=== PATIENT | female | born 1945 | race Caucasian/White ===

== ENCOUNTER 2020-02-28 09:38 | Outpatient (REF) | payer MEDICARE, SELFPAY ==
[2020-02-28 12:22] LABS: Erythrocyte Sedimentation Rate 7 MM/HR (0-20)
[2020-02-28 12:23] LABS: C Reactive Protein 0.31 mg/dL (< or = 0.50)
[2020-02-28 12:39] LABS: HBS Num1 1.88 mIU/mL (0-7.99); HBc Num1 0.07 S/CO (0.00-0.79); HBsAGNum1 0.16 S/CO (0.00-0.99); Hepatitis B Core Antibody Nonreactive (Nonreactive); Hepatitis B Surface Antigen Negative (Negative); ~HepC Num1 0.09 S/CO (0.00-0.79); ~Hepatitis B Surface Antibody NONREACTIVE (Nonreactive); ~Hepatitis C Antibody Nonreactive (Nonreactive)
[2020-02-28 12:50] LABS: Vitamin D 25-OH Total 29.2 ng/mL (>30)
[2020-02-29 10:14] LABS: Alanine Aminotransferase 16 U/L (0-31); Albumin Level 4.2 g/dL (3.5-5.0); Alkaline Phosphatase 47 U/L (39-117); Anion Gap 15 (12-20); Aspartate Amino Transferase 17 U/L (5-31); Bilirubin Total 0.4 mg/dL (0.0-1.0); Blood Urea Nitrogen 12 mg/dL (9-16); Carbon Dioxide 26 mmol/L (22-29); Chloride 103 mmol/L (96-108); Estimated Glomerular Filt Rate > 60; Glucose Random 100 mg/dL (60-115); Potassium 3.9 mmol/l (3.3-5.1); Sodium 140 mmol/L (135-145); Total Protein 6.7 g/dL (6.5-8.0)
[2020-02-29 13:06] LABS: Basophils Absolute Auto 0.1 X10*3/uL (0.0-0.2); Basophils Percent Auto 0.5 % (0-2); Eosinophils Absolute Auto 0.2 X10*3/uL (0.0-0.4); Hematocrit 46.9 % (37-47); Hemoglobin 15.1 g/dl (12.0-16.0); Imm Gran Abs Auto 0.08 X10*3/uL (0.00-0.03); Imm Gran Pct Auto 0.5 % (0.0-0.4); Lymphocytes Percent Auto 70.2 % (20-40); MANUAL DIFF FLAG SCAN; Mean Corpuscular HGB Conc 32.2 g/dl (31.0-35.0); Mean Corpuscular Hemoglobin 29.8 pg (27.0-33.0); Mean Corpuscular Volume 92.5 fL (80-98); Mean Platelet Volume 10.3 fL (9.4-12.3); Monocytes Absolute Auto 0.9 X10*3/uL (0.1-1.2); Monocytes Percent Auto 5.2 % (2-11); Neutrophils Absolute Auto 3.8 X10*3/uL (2.0-8.3); Neutrophils Percent Auto 22.6 % (45-73); Platelet Count 178 X10*3/uL (160-400); Red Blood Count 5.07 X10*6/uL (4.20-5.50); Red Cell Distribution Width 15.2 % (11.0-16.0); SCAN SMEAR FLAG 1; White Blood Count 16.7 X10*3/uL (4.8-10.8)
[2020-02-29 13:17] LABS: Lymphocytes Absolute Auto 11.7 X10*3/uL (1.2-4.9)
[2020-02-29 14:20] LABS: SLIDE REVIEW VERIFIED
[2020-03-01 08:14] LABS: Hepatitis A Antibody IgM 0.15 Index (0-0.79); ~Hepatitis A Antibody IgM Nonreactive (Nonreactive)
[2020-03-01 20:56] LABS: TS Negative Control Passed; TS Panel A 0; TS Panel B 1; TS Positive Control Passed; TSpotTB Negative (SeeBelow)
== END 2020-02-28 09:39 | disposition home or self-care (01) ==
LOC: HO.HMGCLDS 09:38
PROVIDERS: PCP Internal Medicine; Visit Provider Student in an Organized Health Care Education/Training Program
DX: C91.90 Lymphoid leukemia, unspecified not having achieved remission (principal); D69.6 Thrombocytopenia, unspecified; M81.0 Age-related osteoporosis without current pathological fracture; Z79.52 Long term (current) use of systemic steroids; M25.50 Pain in unspecified joint; M35.3 Polymyalgia rheumatica; R79.89 Other specified abnormal findings of blood chemistry
CPT/HCPCS: 36415; 80053; 82306; 85025; 85652; 86140; 86481; 86704; 86706; 86709; 86803; 87340

== ENCOUNTER → 2020-03-08 09:46 | Outpatient (BNVA) | payer MEDICARE, SELFPAY | PROVIDERS: PCP Internal Medicine; Referring Provider Internal Medicine; Visit Provider Student in an Organized Health Care Education/Training Program | DX: M35.3 Polymyalgia rheumatica (principal); R79.89 Other specified abnormal findings of blood chemistry; M81.0 Age-related osteoporosis without current pathological fracture; Z79.52 Long term (current) use of systemic steroids | CPT/HCPCS: 99212 ==

== ENCOUNTER 2020-05-08 10:24 | Outpatient (REF) | payer MEDICARE, SELFPAY ==
[2020-05-08 15:05] LABS: Erythrocyte Sedimentation Rate 26 MM/HR (0-20)
== END 2020-05-08 10:25 | disposition home or self-care (01) ==
LOC: HO.HMGCLDS 10:24
PROVIDERS: PCP Internal Medicine; Visit Provider Student in an Organized Health Care Education/Training Program
DX: M35.3 Polymyalgia rheumatica (principal)
CPT/HCPCS: 36415; 85652; 86140

== ENCOUNTER → 2020-05-16 11:17 | Outpatient (BNVA) | payer MEDICARE, SELFPAY | PROVIDERS: PCP Internal Medicine; Visit Provider Student in an Organized Health Care Education/Training Program | DX: M35.3 Polymyalgia rheumatica (principal); M81.0 Age-related osteoporosis without current pathological fracture; R79.89 Other specified abnormal findings of blood chemistry; Z79.52 Long term (current) use of systemic steroids | CPT/HCPCS: 99212 ==

== ENCOUNTER 2020-07-03 11:04 | Outpatient (REF) | payer MEDICARE, SELFPAY ==
[2020-07-03 14:48] LABS: Basophils Absolute Auto 0.1 X10*3/uL (0.0-0.2); Basophils Percent Auto 0.4 % (0-2); Eosinophils Absolute Auto 0.1 X10*3/uL (0.0-0.4); Eosinophils Percent Auto 0.4 % (0-4); Hematocrit 43.3 % (37-47); Hemoglobin 13.9 g/dl (12.0-16.0); Imm Gran Abs Auto 0.06 X10*3/uL (0.00-0.03); Imm Gran Pct Auto 0.4 % (0.0-0.4); Lymphocytes Percent Auto 54.3 % (20-40); MANUAL DIFF FLAG SCAN; Mean Corpuscular HGB Conc 32.1 g/dl (31.0-35.0); Mean Corpuscular Hemoglobin 30.2 pg (27.0-33.0); Mean Corpuscular Volume 94.1 fL (80-98); Mean Platelet Volume 9.8 fL (9.4-12.3); Monocytes Absolute Auto 0.9 X10*3/uL (0.1-1.2); Monocytes Percent Auto 5.5 % (2-11); Neutrophils Absolute Auto 6.3 X10*3/uL (2.0-8.3); Platelet Count 193 X10*3/uL (160-400); Red Cell Distribution Width 13.5 % (11.0-16.0); SCAN SMEAR FLAG 1; White Blood Count 16.2 X10*3/uL (4.8-10.8)
[2020-07-03 14:59] LABS: Lymphocytes Absolute Auto 8.8 X10*3/uL (1.2-4.9)
[2020-07-03 15:18] LABS: Alanine Aminotransferase 12 U/L (0-31); Albumin Level 4.2 g/dL (3.5-5.0); Alkaline Phosphatase 57 U/L (39-117); Anion Gap 15 (12-20); Aspartate Amino Transferase 18 U/L (5-31); Bilirubin Total 0.5 mg/dL (0.0-1.0); Blood Urea Nitrogen 12 mg/dL (9-16); Calcium 9.2 mg/dL (8.4-10.2); Carbon Dioxide 28 mmol/L (22-29); Chloride 103 mmol/L (96-108); Estimated Glomerular Filt Rate > 60; Glucose Random 87 mg/dL (60-115); Potassium 4.4 mmol/L (3.3-5.1); Sodium 142 mmol/L (135-145)
[2020-07-03 15:24] LABS: C Reactive Protein 1.75 mg/dL (< or = 0.50)
[2020-07-03 15:43] LABS: Erythrocyte Sedimentation Rate 33 MM/HR (0-20)
[2020-07-03 16:07] LABS: SLIDE REVIEW VERIFIED
== END 2020-07-03 11:05 | disposition home or self-care (01) ==
LOC: HO.HMGCLDS 11:04
PROVIDERS: PCP Internal Medicine; Referring Provider Internal Medicine Medical Oncology; Visit Provider Student in an Organized Health Care Education/Training Program
DX: M35.3 Polymyalgia rheumatica (principal); C91.90 Lymphoid leukemia, unspecified not having achieved remission
CPT/HCPCS: 36415; 80053; 85025; 85652; 86140

== ENCOUNTER → 2020-07-20 10:17 | Outpatient (BNVA) | payer MEDICARE, SELFPAY | PROVIDERS: Visit Provider Student in an Organized Health Care Education/Training Program | DX: M35.3 Polymyalgia rheumatica (principal); M81.0 Age-related osteoporosis without current pathological fracture; R79.89 Other specified abnormal findings of blood chemistry; Z79.52 Long term (current) use of systemic steroids | CPT/HCPCS: 99212 ==

== ENCOUNTER 2020-08-21 11:25 | Outpatient (REF) | payer MEDICARE, SELFPAY ==
[2020-08-21 14:38] LABS: C Reactive Protein 0.46 mg/dL (< or = 0.50)
[2020-08-21 15:14] LABS: Erythrocyte Sedimentation Rate 13 MM/HR (0-20)
[2020-08-22 15:56] LABS: IgA 175 mg/dL (70-320); IgG 959 mg/dL (600-1540); IgM 46 mg/dL (50-300)
[2020-08-22 22:47] LABS: Prot Elec - Albumin 4.2 g/dL (3.8-4.8); Prot Elec - Alpha1 0.4 g/dL (0.2-0.3); Prot Elec - Alpha2 0.8 g/dL (0.5-0.9); Prot Elec - Beta 1 0.5 g/dL (0.4-0.6); Prot Elec - Beta 2 0.4 g/dL (0.2-0.5); Prot Elec - Gamma 0.9 g/dL (0.8-1.7); Prot Elec - Total Protein 7.2 g/dL (6.1-8.1)
== END 2020-08-21 11:26 | disposition home or self-care (01) ==
LOC: HO.HMGCLDS 11:25
PROVIDERS: PCP Internal Medicine; Visit Provider Student in an Organized Health Care Education/Training Program
DX: M35.3 Polymyalgia rheumatica (principal)
CPT/HCPCS: 36415; 82784; 84155; 84165; 85652; 86140; 86334

== ENCOUNTER → 2020-08-28 12:45 | Outpatient (BNVA) | payer MEDICARE, SELFPAY | PROVIDERS: Visit Provider Student in an Organized Health Care Education/Training Program | DX: M35.3 Polymyalgia rheumatica (principal); R79.89 Other specified abnormal findings of blood chemistry; M81.0 Age-related osteoporosis without current pathological fracture; Z79.52 Long term (current) use of systemic steroids | CPT/HCPCS: 99212 ==

== ENCOUNTER 2020-09-21 10:15 | Outpatient (REF) | payer MEDICARE, SELFPAY ==
[2020-09-21 12:26] LABS: C Reactive Protein 0.41 mg/dL (< or = 0.50)
[2020-09-21 13:17] LABS: Erythrocyte Sedimentation Rate 12 MM/HR (0-20)
== END 2020-09-21 10:16 | disposition home or self-care (01) ==
LOC: HO.HMGCLDS 10:15
PROVIDERS: PCP Internal Medicine; Visit Provider Student in an Organized Health Care Education/Training Program
DX: M35.3 Polymyalgia rheumatica (principal)
CPT/HCPCS: 36415; 85652; 86140

== ENCOUNTER → 2020-09-28 12:14 | Outpatient (BNVA) | payer MEDICARE, SELFPAY | PROVIDERS: Visit Provider Student in an Organized Health Care Education/Training Program | DX: M35.3 Polymyalgia rheumatica (principal); M81.0 Age-related osteoporosis without current pathological fracture; R79.89 Other specified abnormal findings of blood chemistry; Z79.52 Long term (current) use of systemic steroids | CPT/HCPCS: 99212 ==

== ENCOUNTER 2020-11-02 10:25 | Outpatient (REF) | payer MEDICARE, SELFPAY ==
[2020-11-02 11:24] LABS: Basophils Absolute Auto 0.1 X10*3/uL (0.0-0.2); Basophils Percent Auto 0.5 % (0-2); Eosinophils Absolute Auto 0.1 X10*3/uL (0.0-0.4); Eosinophils Percent Auto 0.7 % (0-4); Hematocrit 44.5 % (37-47); Hemoglobin 14.6 g/dl (12.0-16.0); Imm Gran Abs Auto 0.05 X10*3/uL (0.00-0.03); Imm Gran Pct Auto 0.3 % (0.0-0.4); Lymphocytes Percent Auto 59.8 % (20-40); MANUAL DIFF FLAG SCAN; Mean Corpuscular HGB Conc 32.8 g/dl (31.0-35.0); Mean Corpuscular Hemoglobin 30.3 pg (27.0-33.0); Mean Corpuscular Volume 92.3 fL (80-98); Mean Platelet Volume 9.3 fL (9.4-12.3); Monocytes Absolute Auto 1.1 X10*3/uL (0.1-1.2); Monocytes Percent Auto 6.4 % (2-11); Neutrophils Absolute Auto 5.5 X10*3/uL (2.0-8.3); Neutrophils Percent Auto 32.3 % (45-73); Platelet Count 173 X10*3/uL (160-400); Red Blood Count 4.82 X10*6/uL (4.20-5.50); Red Cell Distribution Width 14.3 % (11.0-16.0); SCAN SMEAR FLAG 1
[2020-11-02 11:25] LABS: Lymphocytes Absolute Auto 10.2 X10*3/uL (1.2-4.9)
[2020-11-02 11:56] LABS: Alanine Aminotransferase 14 U/L (0-31); Albumin Level 4.1 g/dL (3.5-5.0); Alkaline Phosphatase 48 U/L (39-117); Anion Gap 12 (12-20); Aspartate Amino Transferase 27 U/L (5-31); Bilirubin Total 0.4 mg/dL (0.0-1.0); Blood Urea Nitrogen 12 mg/dL (9-16); C Reactive Protein 0.46 mg/dL (< or = 0.50); Calcium 9.4 mg/dL (8.4-10.2); Carbon Dioxide 27 mmol/L (22-29); Chloride 106 mmol/L (96-108); Estimated Glomerular Filt Rate > 60; Glucose Random 84 mg/dL (60-115); Lactate Dehydrogenase 180 U/L (122-220); Potassium 4.2 mmol/L (3.3-5.1); Sodium 141 mmol/L (135-145); Total Protein 6.7 g/dL (6.5-8.0)
[2020-11-02 12:08] LABS: SLIDE REVIEW VERIFIED
[2020-11-02 12:31] LABS: Erythrocyte Sedimentation Rate 12 MM/HR (0-20)
== END 2020-11-02 10:26 | disposition home or self-care (01) ==
LOC: HO.HMGCLDS 10:25
PROVIDERS: Student in an Organized Health Care Education/Training Program; PCP Internal Medicine; Visit Provider Internal Medicine Medical Oncology
DX: C91.90 Lymphoid leukemia, unspecified not having achieved remission (principal); D69.6 Thrombocytopenia, unspecified; M35.3 Polymyalgia rheumatica
CPT/HCPCS: 36415; 80053; 83615; 85025; 85652; 86140

== ENCOUNTER 2020-11-08 15:51 | Outpatient (REF) | payer MEDICARE, SELFPAY ==
--- NOTE | ~2020-11-08 | MM_ITS ---
EXAMINATION: MM SCREENING DIGITAL BREAST TOMOSYNTHESIS, BILATERAL CLINICAL INFORMATION: Screening. Asymptomatic. Prior mammography from [place] currently unavailable. No known family history breast cancer. The lifetime risk of breast cancer based on the Tyrer-Cuzick Model is 2%. COMPARISON: None. TECHNIQUE: Digital breast tomosynthesis is performed in both the craniocaudal and mediolateral oblique views along with computer-aided detection (CAD). Synthesized 2D images are generated from the tomosynthesis. FINDINGS: There are scattered areas of fibroglandular density (ACR BI-RADS breast composition Category b). There are no significant masses, abnormal calcifications, or other abnormalities. The axilla and skin contours. Radiology department staff will attempt to retrieve prior [id number] mammography to allow for comparison in an addendum report. MM/MM tomosynthesis screening BI IMPRESSION: No mammographic evidence of malignancy. ASSESSMENT: BI-RADS 1: Negative RECOMMENDATION: Routine annual mammography screening. This patient's information was entered into a reminder system with a target due date for their next mammogram.
== END 2020-11-08 15:52 | disposition home or self-care (01) ==
LOC: HO.MAMMO 15:51
PROVIDERS: Visit Provider Internal Medicine
DX: Z12.31 Encounter for screening mammogram for malignant neoplasm of breast (principal)
CPT/HCPCS: 77063; 77067

== ENCOUNTER → 2020-11-14 11:15 | Outpatient (BNVA) | payer MEDICARE, SELFPAY | PROVIDERS: PCP Internal Medicine; Visit Provider Student in an Organized Health Care Education/Training Program | DX: M35.3 Polymyalgia rheumatica (principal); M81.0 Age-related osteoporosis without current pathological fracture; R79.89 Other specified abnormal findings of blood chemistry; Z79.52 Long term (current) use of systemic steroids | CPT/HCPCS: 99212 ==

== ENCOUNTER 2020-12-18 10:12 | Outpatient (REF) | payer MEDICARE, SELFPAY ==
[2020-12-18 12:32] LABS: Erythrocyte Sedimentation Rate 18 MM/HR (0-20)
== END 2020-12-18 10:13 | disposition home or self-care (01) ==
LOC: HO.HMGCLDS 10:12
PROVIDERS: PCP Internal Medicine; Visit Provider Student in an Organized Health Care Education/Training Program
DX: M35.3 Polymyalgia rheumatica (principal)
CPT/HCPCS: 36415; 85652; 86140

== ENCOUNTER → 2020-12-26 08:37 | Outpatient (BNVA) | payer MEDICARE, SELFPAY | PROVIDERS: PCP Internal Medicine; Visit Provider Student in an Organized Health Care Education/Training Program | CPT/HCPCS: Q3014 ==

== ENCOUNTER 2021-02-12 10:25 | Outpatient (REF) | payer MEDICARE, SELFPAY ==
[2021-02-12 11:56] LABS: C Reactive Protein 1.17 mg/dL (< or = 0.50)
[2021-02-12 12:38] LABS: Erythrocyte Sedimentation Rate 25 MM/HR (0-20)
== END 2021-02-12 10:26 | disposition home or self-care (01) ==
LOC: HO.HMGCLDS 10:25
PROVIDERS: PCP Internal Medicine; Visit Provider Student in an Organized Health Care Education/Training Program
DX: M35.3 Polymyalgia rheumatica (principal)
CPT/HCPCS: 36415; 85652; 86140

== ENCOUNTER → 2021-02-21 10:38 | Outpatient (BNVA) | payer MEDICARE, SELFPAY | PROVIDERS: PCP Internal Medicine; Visit Provider Nurse Practitioner Family | DX: M35.3 Polymyalgia rheumatica (principal); M81.0 Age-related osteoporosis without current pathological fracture; R79.89 Other specified abnormal findings of blood chemistry; Z79.52 Long term (current) use of systemic steroids | CPT/HCPCS: 99212 ==

== ENCOUNTER 2021-03-18 10:46 | Outpatient (REF) | payer MEDICARE, SELFPAY ==
[2021-03-18 14:20] LABS: C Reactive Protein 0.18 mg/dL (< or = 0.50)
[2021-03-18 14:44] LABS: Erythrocyte Sedimentation Rate 7 MM/HR (0-20)
== END 2021-03-18 10:47 | disposition home or self-care (01) ==
LOC: HO.HMGCLDS 10:46
PROVIDERS: Absent Provider Student in an Organized Health Care Education/Training Program; PCP Internal Medicine; Visit Provider Nurse Practitioner Family
DX: M35.3 Polymyalgia rheumatica (principal)
CPT/HCPCS: 36415; 85652; 86140

== ENCOUNTER 2021-04-16 10:27 | Outpatient (REF) | payer MEDICARE, SELFPAY ==
[2021-04-16 11:46] LABS: C Reactive Protein 0.27 mg/dL (< or = 0.50)
[2021-04-16 12:12] LABS: Erythrocyte Sedimentation Rate 9 MM/HR (0-20)
== END 2021-04-16 10:28 | disposition home or self-care (01) ==
LOC: HO.HMGCLDS 10:27
PROVIDERS: Student in an Organized Health Care Education/Training Program; PCP Internal Medicine; Visit Provider Nurse Practitioner Family
DX: M35.3 Polymyalgia rheumatica (principal)
CPT/HCPCS: 36415; 85652; 86140

== ENCOUNTER 2021-04-29 10:26 | Outpatient (REF) | payer MEDICARE, SELFPAY ==
[2021-04-29 12:07] LABS: Basophils Absolute Auto 0.1 X10*3/uL (0.0-0.2); Basophils Percent Auto 0.5 % (0-2); Eosinophils Absolute Auto 0.2 X10*3/uL (0.0-0.4); Hematocrit 45.2 % (37.0-47.0); Hemoglobin 14.3 g/dl (12.0-16.0); Imm Gran Abs Auto 0.04 X10*3/uL (0.00-0.03); Imm Gran Pct Auto 0.3 % (0.0-0.4); MANUAL DIFF FLAG SCAN; Mean Corpuscular HGB Conc 31.6 g/dl (31.0-35.0); Mean Corpuscular Hemoglobin 29.4 pg (27.0-33.0); Mean Platelet Volume 10.1 fL (9.4-12.3); Monocytes Percent Auto 6.3 % (2-11); Neutrophils Absolute Auto 4.8 x10*3/uL (2.0-8.3); Neutrophils Percent Auto 30.9 % (45-73); Platelet Count 172 X10*3/uL (160-400); Red Blood Count 4.86 X10*6/uL (4.20-5.50); SCAN SMEAR FLAG 1; White Blood Count 15.6 X10*3/uL (4.8-10.8)
[2021-04-29 12:10] LABS: Lymphocytes Absolute Auto 9.5 X10*3/uL (1.2-4.9)
[2021-04-29 12:26] LABS: Alanine Aminotransferase 15 U/L (0-31); Albumin Level 4.2 g/dL (3.5-5.0); Alkaline Phosphatase 53 U/L (39-117); Anion Gap 13 (12-20); Aspartate Amino Transferase 19 U/L (5-31); Bilirubin Total 0.2 mg/dL (0.0-1.0); Blood Urea Nitrogen 12 mg/dL (9-16); Calcium 9.8 mg/dL (8.4-10.2); Carbon Dioxide 28 mmol/L (22-29); Chloride 105 mmol/L (96-108); Estimated Glomerular Filt Rate > 60; Glucose Random 80 mg/dL (60-115); Potassium 4.9 mmol/L (3.3-5.1); Sodium 141 mmol/L (135-145); Total Protein 7.2 g/dL (6.5-8.0)
[2021-04-29 12:39] LABS: SLIDE REVIEW VERIFIED
== END 2021-04-29 10:27 | disposition home or self-care (01) ==
LOC: HO.HMGCLDS 10:26
PROVIDERS: PCP Internal Medicine; Visit Provider Internal Medicine Medical Oncology
DX: C91.90 Lymphoid leukemia, unspecified not having achieved remission (principal); D69.6 Thrombocytopenia, unspecified
CPT/HCPCS: 36415; 80053; 85025

== ENCOUNTER → 2021-05-07 10:35 | Outpatient (BNVA) | payer MEDICARE, SELFPAY | PROVIDERS: PCP Internal Medicine; Visit Provider Nurse Practitioner Family | DX: M35.3 Polymyalgia rheumatica (principal); R79.89 Other specified abnormal findings of blood chemistry; M81.0 Age-related osteoporosis without current pathological fracture; Z79.52 Long term (current) use of systemic steroids | CPT/HCPCS: 99212 ==

== ENCOUNTER 2021-06-25 10:27 | Outpatient (REF) | payer MEDICARE, SELFPAY ==
[2021-06-25 12:23] LABS: C Reactive Protein 0.45 mg/dL (< or = 0.50)
[2021-06-25 12:35] LABS: Erythrocyte Sedimentation Rate 17 MM/HR (0-20)
== END 2021-06-25 10:28 | disposition home or self-care (01) ==
LOC: HO.HMGCLDS 10:27
PROVIDERS: Absent Provider Nurse Practitioner Family; PCP Internal Medicine; Visit Provider Student in an Organized Health Care Education/Training Program
DX: M35.3 Polymyalgia rheumatica (principal)
CPT/HCPCS: 36415; 85652; 86140

== ENCOUNTER → 2021-07-09 10:53 | Outpatient (BNVA) | payer MEDICARE, SELFPAY | PROVIDERS: PCP Internal Medicine; Visit Provider Nurse Practitioner Family | DX: M35.3 Polymyalgia rheumatica (principal); M81.0 Age-related osteoporosis without current pathological fracture; R79.89 Other specified abnormal findings of blood chemistry; Z79.52 Long term (current) use of systemic steroids | CPT/HCPCS: 99212 ==

== ENCOUNTER 2021-08-07 10:25 | Outpatient (REF) | payer MEDICARE, SELFPAY ==
[2021-08-07 11:44] LABS: C Reactive Protein 0.49 mg/dL (< or = 0.50)
[2021-08-07 12:30] LABS: Erythrocyte Sedimentation Rate 18 MM/HR (0-20)
== END 2021-08-07 10:26 | disposition home or self-care (01) ==
LOC: HO.HMGCLDS 10:25
PROVIDERS: PCP Internal Medicine; Visit Provider Nurse Practitioner Family
DX: M35.3 Polymyalgia rheumatica (principal)
CPT/HCPCS: 36415; 85652; 86140

== ENCOUNTER → 2021-08-22 10:23 | Outpatient (BNVA) | payer MEDICARE, SELFPAY | PROVIDERS: PCP Internal Medicine; Visit Provider Nurse Practitioner Family | DX: M35.3 Polymyalgia rheumatica (principal); M81.0 Age-related osteoporosis without current pathological fracture; R79.89 Other specified abnormal findings of blood chemistry; Z79.52 Long term (current) use of systemic steroids | CPT/HCPCS: 99212 ==

== ENCOUNTER 2021-10-22 10:51 | Outpatient (REF) | payer MEDICARE, SELFPAY ==
[2021-10-22 14:21] LABS: Basophils Absolute Auto 0.1 X10*3/uL (0.0-0.2); Basophils Percent Auto 0.5 % (0-2); Eosinophils Absolute Auto 0.1 X10*3/uL (0.0-0.4); Eosinophils Percent Auto 0.7 % (0-4); Hematocrit 41.5 % (37.0-47.0); Hemoglobin 13.3 g/dl (12.0-16.0); Imm Gran Abs Auto 0.05 X10*3/uL (0.00-0.03); Imm Gran Pct Auto 0.3 % (0.0-0.4); Lymphocytes Percent Auto 57.2 % (20-40); Mean Corpuscular Hemoglobin 29.4 pg (27.0-33.0); Mean Corpuscular Volume 91.6 fL (80.0-98.0); Mean Platelet Volume 9.9 fL (9.4-12.3); Monocytes Absolute Auto 1.1 X10*3/uL (0.1-1.2); Monocytes Percent Auto 7.7 % (2-11); Neutrophils Absolute Auto 4.8 x10*3/uL (2.0-8.3); Neutrophils Percent Auto 33.6 % (45-73); Platelet Count 180 X10*3/uL (160-400); Red Blood Count 4.53 X10*6/uL (4.20-5.50); Red Cell Distribution Width 13.7 % (11.0-16.0); SCAN SMEAR FLAG 1; White Blood Count 14.3 X10*3/uL (4.8-10.8)
[2021-10-22 14:28] LABS: Lymphocytes Absolute Auto 8.2 X10*3/uL (1.2-4.9)
[2021-10-22 14:30] LABS: MANUAL DIFF FLAG SCAN
[2021-10-22 14:45] LABS: Alanine Aminotransferase 12 U/L (0-31); Albumin Level 4.3 g/dL (3.5-5.0); Alkaline Phosphatase 56 U/L (39-117); Anion Gap 13 (12-20); Aspartate Amino Transferase 20 U/L (5-31); Bilirubin Total 0.3 mg/dL (0.0-1.0); Blood Urea Nitrogen 10 mg/dL (9-16); Calcium 9.3 mg/dL (8.4-10.2); Carbon Dioxide 27 mmol/L (22-29); Chloride 102 mmol/L (96-108); Estimated Glomerular Filt Rate > 60; Glucose Random 85 mg/dL (60-115); Sodium 137 mmol/L (135-145)
[2021-10-22 14:53] LABS: SLIDE REVIEW VERIFIED
[2021-10-22 14:54] LABS: C Reactive Protein 0.33 mg/dL (< or = 0.50)
[2021-10-22 15:13] LABS: Vitamin D 25-OH Total 45.7 ng/mL (>30)
[2021-10-22 15:14] LABS: Erythrocyte Sedimentation Rate 17 MM/HR (0-20)
== END 2021-10-22 10:52 | disposition home or self-care (01) ==
LOC: HO.HMGCLDS 10:51
PROVIDERS: Absent Provider Nurse Practitioner Family; PCP Internal Medicine; Visit Provider Internal Medicine Medical Oncology
DX: M35.3 Polymyalgia rheumatica (principal); M81.0 Age-related osteoporosis without current pathological fracture; C91.90 Lymphoid leukemia, unspecified not having achieved remission
CPT/HCPCS: 36415; 80053; 82306; 85025; 85652; 86140

== ENCOUNTER → 2021-10-30 09:56 | Outpatient (BNVA) | payer MEDICARE, SELFPAY | PROVIDERS: PCP Internal Medicine Rheumatology; Visit Provider Nurse Practitioner Family | DX: M35.3 Polymyalgia rheumatica (principal); M81.0 Age-related osteoporosis without current pathological fracture; R79.89 Other specified abnormal findings of blood chemistry; Z79.52 Long term (current) use of systemic steroids | CPT/HCPCS: 99212 ==

== ENCOUNTER 2021-11-08 09:26 | Outpatient (REF) | payer MEDICARE, SELFPAY ==
[2021-11-08 12:17] LABS: Cholesterol 205 mg/dL; HDL Cholesterol 70 mg/dL; LDL Cholesterol Calculated 118 mg/dl; Triglycerides 88 mg/dL
== END 2021-11-08 09:27 | disposition home or self-care (01) ==
LOC: HO.HMGCLDS 09:26
PROVIDERS: PCP Internal Medicine; Visit Provider Internal Medicine
DX: E78.5 Hyperlipidemia, unspecified (principal)
CPT/HCPCS: 36415; 80061

== ENCOUNTER 2021-11-11 10:24 | Outpatient (REF) | payer MEDICARE, SELFPAY ==
--- NOTE | ~2021-11-11 | MM_ITS ---
EXAMINATION: MM SCREENING DIGITAL BREAST TOMOSYNTHESIS, BILATERAL CLINICAL INFORMATION: Screening. Asymptomatic. The lifetime risk of breast cancer based on the Tyrer-Cuzick Model is 3%. COMPARISON: Mammography: 11/08/2020; outside mammography 05/27/2019, 05/19/2018 ([place], [place]). TECHNIQUE: Digital breast tomosynthesis is performed in both the craniocaudal and mediolateral oblique views along with computer-aided detection (CAD). Synthesized 2D images are generated from the tomosynthesis. FINDINGS: There are scattered areas of fibroglandular density (ACR BI-RADS breast composition Category b). There are no significant masses, abnormal calcifications, or other abnormalities. Breast tissue composition borders on predominantly fatty. Background stromal markings are stable. No significant changes. MM/MM tomosynthesis screening BI IMPRESSION: No mammographic evidence of malignancy. ASSESSMENT: BI-RADS 1: Negative RECOMMENDATION: Routine annual mammography screening. This patient's information was entered into a reminder system with a target due date for their next mammogram.
== END 2021-11-11 10:25 | disposition home or self-care (01) ==
LOC: HO.MAMMO 10:24
PROVIDERS: PCP Internal Medicine; Visit Provider Internal Medicine
DX: Z12.31 Encounter for screening mammogram for malignant neoplasm of breast (principal)
CPT/HCPCS: 77063; 77067

== ENCOUNTER 2021-11-12 09:17 | Outpatient (REF) | payer MEDICARE, SELFPAY ==
--- NOTE | ~2021-11-12 | MM_ITS ---
EXAMINATION: BONE DENSITOMETRY CLINICAL INDICATION: Age-related osteoporosis without current pathological fracture. COMPARISON: Baseline BD dated 11/09/2019. TECHNIQUE: Using a [employer] DXA System (software version: 13.1) manufactured by [employer], dual-energy x-ray absorptiometry was performed of the lumbar spine and left hip. The images are of good technical quality. Summary results are attached. FINDINGS: AP SPINE L1-L4: Current: BMD 0.962 g/cm2, Z-score 0.2, T-score -1.8, osteopenia, 3.2% increase from baseline (<5% change is not significant). Baseline: BMD 0.932 g/cm2. LEFT FEMUR, NECK: Current: BMD 0.731 g/cm2, Z-score 0.0, T-score -2.2, osteopenia. Baseline: BMD 0.757 g/cm2. LEFT FEMUR, TOTAL: Current: BMD 0.833 g/cm2, Z-score 0.7, T-score -1.4, osteopenia, 1.7% increase from baseline (<5% change is not significant). Baseline: BMD 0.819 g/cm2. IDENTIFIED RISK FACTORS: Menopause, history of fracture (adult), osteoporosis, rheumatoid arthritis, glucocorticoids (chronic). HISTORY OF FRACTURE: Wrist. MEDICATIONS: Calcium supplements or multivitamin, vitamin D, bisphosphonate. MM/XR DEXA axial skeleton IMPRESSION: 1. DIAGNOSIS: Osteopenia based on the lowest T-score value of -2.2 in the femoral neck applying World Health Organization criteria. 2. 10-YEAR FRACTURE RISK PREDICTION, FRAX: Major osteoporotic fracture (clinical spine, forearm, hip or shoulder) 40.3%. Hip fracture 15.6%. 3. Treatment Recommendations: NOF guidelines recommend consideration for treatment in postmenopausal women and men age 50 and older presenting with the following: -A hip or vertebral (clinical or morphometric) fracture. -T-score less than or equal to -2.5 at the femoral neck or spine after appropriate evaluation to exclude secondary causes. -Low bone mass at the hip or spine and a 10-year fracture probability by FRAX of greater than or equal to 3% for hip fracture or greater than or equal to 20% for major osteoporotic fracture based on the [place] adapted WHO algorithm. 4. Other Recommendations: All treatment decisions require clinical judgment and consideration of individual patient factors, including patient preferences, comorbidities, previous drug use, risk factors not captured in the FRAX model (e.g. frailty, falls, vitamin D deficiency, increased bone turnover, interval significant decline in bone density) and possible under or overestimation of fracture risk by FRAX. Additional medical evaluation for secondary cause of low bone mineral density may be appropriate. FUTURE SCAN RECOMMENDATION: People with diagnosed cases of osteoporosis or at high risk for fracture should have regular bone mineral density tests. For patients eligible for Medicare, routine testing is allowed once every 2 years. The testing frequency can be increased to one year for patients who have rapidly progressing disease, those who are receiving or discontinuing medical therapy to restore bone mass, or have additional risk factors.
== END 2021-11-12 09:18 | disposition home or self-care (01) ==
LOC: HO.MAMMO 09:17
PROVIDERS: Visit Provider Nurse Practitioner Family
DX: Z13.820 Encounter for screening for osteoporosis (principal); M81.0 Age-related osteoporosis without current pathological fracture; Z78.0 Asymptomatic menopausal state
CPT/HCPCS: 77080

== ENCOUNTER 2021-12-25 10:56 | Outpatient (REF) | payer MEDICARE, SELFPAY ==
[2021-12-25 14:31] LABS: C Reactive Protein 0.66 mg/dL (< or = 0.50)
[2021-12-25 15:08] LABS: Erythrocyte Sedimentation Rate 23 MM/HR (0-20)
== END 2021-12-25 10:57 | disposition home or self-care (01) ==
LOC: HO.HMGCLDS 10:56
PROVIDERS: PCP Internal Medicine; Visit Provider Nurse Practitioner Family
DX: M35.3 Polymyalgia rheumatica (principal)
CPT/HCPCS: 36415; 85652; 86140

== ENCOUNTER → 2022-01-15 12:20 | Outpatient (BNVA) | payer MEDICARE, SELFPAY | PROVIDERS: PCP Internal Medicine; Visit Provider Nurse Practitioner Family | DX: M35.3 Polymyalgia rheumatica (principal); R79.89 Other specified abnormal findings of blood chemistry; M81.0 Age-related osteoporosis without current pathological fracture; M25.511 Pain in right shoulder; M25.512 Pain in left shoulder; Z79.52 Long term (current) use of systemic steroids | CPT/HCPCS: 99212 ==

== ENCOUNTER 2022-01-16 10:49 | Outpatient (REF) | payer MEDICARE, SELFPAY ==
--- NOTE | ~2022-01-16 | XR_ITS ---
EXAMINATION: XR SHOULDER, RIGHT CLINICAL INFORMATION: Pain. COMPARISON: None TECHNIQUE: AP external rotation, Grashey and scapula Y views of the right shoulder are submitted. FINDINGS: None Mineralization are normal. The glenohumeral joint is intact. There is very mild osteoarthritic change of the right glenohumeral joint. The acromioclavicular and coracoclavicular intervals are normal. No fracture or dislocation is seen. There is no abnormal soft tissue calcifications or foreign body. No right pneumothorax is seen. XR/XR shoulder RT min 2V IMPRESSION: 1. No fracture or dislocation is seen. 2. There is mild osteoarthritic change of the right glenohumeral joint. EXAMINATION: XR SHOULDER, LEFT CLINICAL INFORMATION: Pain. COMPARISON: Radiographs dated 12/19/2008. TECHNIQUE: AP external rotation, Grashey and scapula Y views of the left shoulder are submitted. FINDINGS: Bony alignment and mineralization are normal. The glenohumeral joint is intact. The acromioclavicular and coracoclavicular intervals are normal. There is mild osteoarthritic change of the glenohumeral and acromioclavicular joints. No fracture or dislocation is seen. There is no abnormal soft tissue calcification or foreign body. There is no left pneumothorax. IMPRESSION: 1. No fracture or dislocation is seen. 2. There is mild osteoarthritic change of the left glenohumeral and acromioclavicular joints.
--- NOTE | ~2022-01-16 | XR_ITS ---
EXAMINATION: XR SHOULDER, RIGHT CLINICAL INFORMATION: Pain. COMPARISON: None TECHNIQUE: AP external rotation, Grashey and scapula Y views of the right shoulder are submitted. FINDINGS: None Mineralization are normal. The glenohumeral joint is intact. There is very mild osteoarthritic change of the right glenohumeral joint. The acromioclavicular and coracoclavicular intervals are normal. No fracture or dislocation is seen. There is no abnormal soft tissue calcifications or foreign body. No right pneumothorax is seen. XR/XR shoulder LT min 2V IMPRESSION: 1. No fracture or dislocation is seen. 2. There is mild osteoarthritic change of the right glenohumeral joint. EXAMINATION: XR SHOULDER, LEFT CLINICAL INFORMATION: Pain. COMPARISON: Radiographs dated 12/19/2008. TECHNIQUE: AP external rotation, Grashey and scapula Y views of the left shoulder are submitted. FINDINGS: Bony alignment and mineralization are normal. The glenohumeral joint is intact. The acromioclavicular and coracoclavicular intervals are normal. There is mild osteoarthritic change of the glenohumeral and acromioclavicular joints. No fracture or dislocation is seen. There is no abnormal soft tissue calcification or foreign body. There is no left pneumothorax. IMPRESSION: 1. No fracture or dislocation is seen. 2. There is mild osteoarthritic change of the left glenohumeral and acromioclavicular joints.
[2022-01-16 14:17] LABS: C Reactive Protein 0.24 mg/dL (< or = 0.50)
[2022-01-16 14:57] LABS: Erythrocyte Sedimentation Rate 17 MM/HR (0-20)
== END 2022-01-16 10:50 | disposition home or self-care (01) ==
LOC: HO.HMGCX 10:49
PROVIDERS: PCP Internal Medicine; Visit Provider Nurse Practitioner Family
DX: M25.512 Pain in left shoulder (principal); M25.511 Pain in right shoulder; M35.3 Polymyalgia rheumatica
CPT/HCPCS: 36415; 73030; 85652; 86140

== ENCOUNTER 2022-02-24 14:18 | Outpatient (REF) | payer MEDICARE, SELFPAY ==
[2022-02-24 16:32] LABS: C Reactive Protein 0.38 mg/dL (< or = 0.50)
[2022-02-24 17:12] LABS: Erythrocyte Sedimentation Rate 18 MM/HR (0-20)
== END 2022-02-24 14:19 | disposition home or self-care (01) ==
LOC: HO.HMGCLDS 14:18
PROVIDERS: PCP Internal Medicine; Visit Provider Nurse Practitioner Family
DX: M35.3 Polymyalgia rheumatica (principal)
CPT/HCPCS: 36415; 85652; 86140

== ENCOUNTER 2022-03-31 12:17 | Outpatient (REF) | payer MEDICARE, SELFPAY ==
[2022-03-31 14:48] LABS: Erythrocyte Sedimentation Rate 16 MM/HR (0-20)
== END 2022-03-31 12:18 | disposition home or self-care (01) ==
LOC: HO.HMGCLDS 12:17
PROVIDERS: PCP Internal Medicine; Visit Provider Nurse Practitioner Family
DX: M35.3 Polymyalgia rheumatica (principal)
CPT/HCPCS: 36415; 85652; 86140

== ENCOUNTER → 2022-04-04 11:28 | Outpatient (BNVA) | payer MEDICARE, SELFPAY | PROVIDERS: PCP Internal Medicine; Visit Provider Nurse Practitioner Family | DX: M35.3 Polymyalgia rheumatica (principal); M81.0 Age-related osteoporosis without current pathological fracture; R79.89 Other specified abnormal findings of blood chemistry; Z79.52 Long term (current) use of systemic steroids | CPT/HCPCS: 99212 ==

== ENCOUNTER 2022-05-01 12:15 | Outpatient (REF) | payer MEDICARE, SELFPAY ==
[2022-05-01 14:15] LABS: Hemoglobin 14.8 g/dl (12.0-16.0); Mean Corpuscular HGB Conc 32.2 g/dl (31.0-35.0); Mean Corpuscular Hemoglobin 29.8 pg (27.0-33.0); Mean Corpuscular Volume 92.6 fL (80.0-98.0); Mean Platelet Volume 9.5 fL (9.4-12.3); Platelet Count 161 X10*3/uL (160-400); Red Blood Count 4.97 X10*6/uL (4.20-5.50); Red Cell Distribution Width 13.7 % (11.0-16.0); White Blood Count 19.2 X10*3/uL (4.8-10.8)
[2022-05-01 14:29] LABS: Lactate Dehydrogenase 158 U/L (122-220)
[2022-05-01 14:32] LABS: Alanine Aminotransferase 14 U/L (0-31); Albumin Level 4.5 g/dL (3.5-5.0); Alkaline Phosphatase 56 U/L (39-117); Anion Gap 12 (12-20); Aspartate Amino Transferase 22 U/L (5-31); Bilirubin Total 0.4 mg/dL (0.0-1.0); Blood Urea Nitrogen 15 mg/dL (9-16); C Reactive Protein < 0.10 mg/dL (< or = 0.50); Calcium 9.5 mg/dL (8.4-10.2); Carbon Dioxide 27 mmol/L (22-29); Chloride 104 mmol/L (96-108); Estimated Glomerular Filt Rate > 60; Glucose Random 103 mg/dL (60-115); Phosphorus 3.4 mg/dL (2.7-4.5); Potassium 4.3 mmol/L (3.3-5.1); Sodium 139 mmol/L (135-145); Total Protein 7.4 g/dL (6.5-8.0)
[2022-05-01 15:00] LABS: Erythrocyte Sedimentation Rate 10 MM/HR (0-20)
[2022-05-01 16:34] LABS: Atypical Lymph Absolute Manual 1.2 x10*3/uL; Atypical Lymphs Percent Manual 6 % (0-6); Lymphocytes Absolute Manual 11.3 X10*3/uL (1.2-4.9); Lymphocytes Percent Manual 59 % (20-40); Monocytes Absolute Manual 0.6 X10*3/uL (0.1-1.2); Monocytes Percent Manual 3 % (2-11); Neutrophils Percent Manual 32 % (45-73)
[2022-05-01 16:35] LABS: Platelet Estimate NORMAL (NORMAL); Platelet Morphology Comment NORMAL; RBC Morphology NORMAL
[2022-05-01 16:53] LABS: Band Neutrophils Percent 0 % (3-5); Neutrophils Absolute Manual 6.1 X10*3/uL (2.0-8.3)
== END 2022-05-01 12:16 | disposition home or self-care (01) ==
LOC: HO.HMGCLDS 12:15
PROVIDERS: Nurse Practitioner Family; PCP Internal Medicine; Visit Provider Internal Medicine Medical Oncology
DX: C91.90 Lymphoid leukemia, unspecified not having achieved remission (principal); M81.0 Age-related osteoporosis without current pathological fracture; M35.3 Polymyalgia rheumatica
CPT/HCPCS: 36415; 80053; 83615; 84100; 85007; 85025; 85027; 85652; 86140

== ENCOUNTER → 2022-05-15 11:09 | Outpatient (BNVA) | payer MEDICARE, SELFPAY | PROVIDERS: PCP Internal Medicine; Visit Provider Nurse Practitioner Family | DX: M35.3 Polymyalgia rheumatica (principal); M81.0 Age-related osteoporosis without current pathological fracture; R79.89 Other specified abnormal findings of blood chemistry | CPT/HCPCS: 99212 ==

== ENCOUNTER 2022-06-19 10:55 | Outpatient (REF) | payer MEDICARE, SELFPAY ==
[2022-06-19 14:21] LABS: C Reactive Protein < 0.10 mg/dL (< or = 0.50)
[2022-06-19 15:30] LABS: Erythrocyte Sedimentation Rate 10 MM/HR (0-20)
== END 2022-06-19 10:56 | disposition home or self-care (01) ==
LOC: HO.HMGCLDS 10:55
PROVIDERS: PCP Internal Medicine; Visit Provider Nurse Practitioner Family
DX: M35.3 Polymyalgia rheumatica (principal)
CPT/HCPCS: 36415; 85652; 86140

== ENCOUNTER → 2022-06-25 09:57 | Outpatient (BNVA) | payer MEDICARE, SELFPAY | PROVIDERS: PCP Internal Medicine; Visit Provider Nurse Practitioner Family | DX: M35.3 Polymyalgia rheumatica (principal); M81.0 Age-related osteoporosis without current pathological fracture; R79.89 Other specified abnormal findings of blood chemistry | CPT/HCPCS: 99212 ==

== ENCOUNTER 2022-07-25 14:06 | Outpatient (REF) | payer MEDICARE, SELFPAY ==
--- NOTE | ~2022-07-25 | CT_ITS ---
EXAMINATION: CT CHEST SCREENING CLINICAL INFORMATION: Nicotine dependence. One pack per day 55 yr history of smoking. COMPARISON: None available. TECHNIQUE: Multidetector volumetric CT imaging of the chest is performed without contrast using low dose technique. Additional 2D coronal and sagittal reformatted images and axial 3D maximum intensity projection (MIP) images are generated on the CT workstation. This CT examination was performed using dose optimization techniques as appropriate, variously including the following: *Automated exposure control *Adjustment of mA and/or kV according to patient size (this includes techniques or standardized protocols for targeted exams where dose is matched to indication/reason for exam; i.e. extremities or head) *Use of iterative reconstruction technique DLP: 39 mGy-cm FINDINGS: LUNGS: The lungs are well-expanded and clear of acute pneumonic process. There is 3 mm nodule right upper lobe axial image 179/6. No additional lung nodules seen. No acute consolidation, mass or groundglass density seen. MEDIASTINUM: The thyroid lobes are symmetric and normal. The central trachea and the bronchi are widely patent. Heart size and the great vessels are normal caliber. No pericardial effusion seen. No abnormal size mediastinal or hilar lymph nodes seen. CORONARY ARTERY CALCIFICATION: Trace coronary artery calcification is seen. PLEURA: There is no pleural effusion. No pleural mass or thickening. AXILLA: Prominent lymph nodes are seen in left axilla. The largest lymph node measures 1.8 x 0.9 cm on axial image 14/3. UPPER ABDOMEN: Visualized liver, spleen, pancreas and bilateral adrenal glands are unremarkable. OSSEOUS STRUCTURES: No lytic or sclerotic process seen. There is mild ventral spondylosis mid and lower dorsal spine. CT/CT lung screening IMPRESSION: 3 no right upper lobe nodule.. ASSESSMENT: Lung-RADS category 2: Benign RECOMMENDATION: Low-dose annual CT chest
== END 2022-07-25 14:07 | disposition home or self-care (01) ==
LOC: HO.CT 14:06
PROVIDERS: PCP Internal Medicine; Visit Provider Physician Assistant Medical
DX: Z12.2 Encounter for screening for malignant neoplasm of respiratory organs (principal); Z87.891 Personal history of nicotine dependence
CPT/HCPCS: 71271; G0296

== ENCOUNTER 2022-07-30 11:01 | Outpatient (REF) | payer MEDICARE, SELFPAY ==
[2022-07-30 14:46] LABS: C Reactive Protein 0.31 mg/dL (< or = 0.50)
[2022-07-30 15:03] LABS: Erythrocyte Sedimentation Rate 16 MM/HR (0-20)
== END 2022-07-30 11:02 | disposition home or self-care (01) ==
LOC: HO.HMGCLDS 11:01
PROVIDERS: PCP Internal Medicine; Visit Provider Nurse Practitioner Family
DX: M35.3 Polymyalgia rheumatica (principal)
CPT/HCPCS: 36415; 85652; 86140

== ENCOUNTER → 2022-08-06 12:26 | Outpatient (BNVA) | payer MEDICARE, SELFPAY | PROVIDERS: PCP Internal Medicine; Visit Provider Nurse Practitioner Family | DX: M35.3 Polymyalgia rheumatica (principal); M81.0 Age-related osteoporosis without current pathological fracture; R76.0 Raised antibody titer; C91.10 Chronic lymphocytic leukemia of B-cell type not having achieved remission | CPT/HCPCS: 99212 ==

== ENCOUNTER 2022-09-01 11:24 | Outpatient (REF) | payer MEDICARE, SELFPAY ==
[2022-09-01 14:11] LABS: C Reactive Protein 0.48 mg/dL (< or = 0.50)
[2022-09-01 14:43] LABS: Erythrocyte Sedimentation Rate 19 MM/HR (0-20)
== END 2022-09-01 11:25 | disposition home or self-care (01) ==
LOC: HO.HMGCLDS 11:24
PROVIDERS: PCP Internal Medicine; Visit Provider Nurse Practitioner Family
DX: M35.3 Polymyalgia rheumatica (principal)
CPT/HCPCS: 36415; 85652; 86140

== ENCOUNTER → 2022-09-08 11:26 | Outpatient (BNVA) | payer MEDICARE, SELFPAY | PROVIDERS: PCP Internal Medicine; Visit Provider Nurse Practitioner Family | DX: M35.3 Polymyalgia rheumatica (principal); M81.0 Age-related osteoporosis without current pathological fracture; R79.89 Other specified abnormal findings of blood chemistry | CPT/HCPCS: 99212 ==

== ENCOUNTER 2022-10-29 11:09 | Outpatient (REF) | payer MEDICARE, SELFPAY ==
[2022-10-29 13:50] LABS: Basophils Absolute Auto 0.1 X10*3/uL (0.0-0.2); Basophils Percent Auto 0.7 % (0-2); Eosinophils Absolute Auto 0.3 X10*3/uL (0.0-0.4); Eosinophils Percent Auto 1.6 % (0-4); Hematocrit 45.1 % (37.0-47.0); Hemoglobin 14.6 g/dl (12.0-16.0); Imm Gran Abs Auto 0.05 X10*3/uL (0.00-0.03); Imm Gran Pct Auto 0.3 % (0.0-0.4); Lymphocytes Percent Auto 73.3 % (20-40); MANUAL DIFF FLAG SCAN; Mean Corpuscular HGB Conc 32.4 g/dl (31.0-35.0); Mean Corpuscular Hemoglobin 29.8 pg (27.0-33.0); Monocytes Absolute Auto 0.9 X10*3/uL (0.1-1.2); Monocytes Percent Auto 4.5 % (2-11); Neutrophils Absolute Auto 3.9 x10*3/uL (2.0-8.3); Neutrophils Percent Auto 19.6 % (45-73); Platelet Count 101 X10*3/uL (160-400); Red Cell Distribution Width 13.3 % (11.0-16.0); SCAN SMEAR FLAG 1; White Blood Count 19.9 X10*3/uL (4.8-10.8)
[2022-10-29 14:01] LABS: Lymphocytes Absolute Auto 14.6 X10*3/uL (1.2-4.9)
[2022-10-29 14:10] LABS: Alanine Aminotransferase 12 U/L (0-31); Albumin Level 4.3 g/dL (3.5-5.0); Alkaline Phosphatase 58 U/L (39-117); Anion Gap 15 (12-20); Aspartate Amino Transferase 21 U/L (5-31); Bilirubin Total 0.4 mg/dL (0.0-1.0); Blood Urea Nitrogen 13 mg/dL (9-16); Calcium 10.3 mg/dL (8.4-10.2); Carbon Dioxide 25 mmol/L (22-29); Chloride 101 mmol/L (96-108); Estimated Glomerular Filt Rate > 60; Glucose Random 75 mg/dL (60-115); Lactate Dehydrogenase 221 U/L (122-220); Potassium 4.3 mmol/L (3.3-5.1); Sodium 137 mmol/L (135-145); Total Protein 7.4 g/dL (6.5-8.0)
[2022-10-29 14:32] LABS: SLIDE REVIEW VERIFIED
[2022-10-29 15:00] LABS: Erythrocyte Sedimentation Rate 17 MM/HR (0-20)
[2022-10-31 19:03] LABS: Beta-2 Microglobulin, Serum 2.55 mg/L (< OR = 2.51)
== END 2022-10-29 11:10 | disposition home or self-care (01) ==
LOC: HO.HMGCLDS 11:09
PROVIDERS: PCP Internal Medicine; Visit Provider Internal Medicine Medical Oncology
DX: C91.90 Lymphoid leukemia, unspecified not having achieved remission (principal); D69.6 Thrombocytopenia, unspecified
CPT/HCPCS: 36415; 80053; 82232; 83615; 85025; 85652

== ENCOUNTER 2022-11-07 09:28 | Outpatient (REF) | payer MEDICARE, SELFPAY ==
[2022-11-07 12:36] LABS: Basophils Absolute Auto 0.1 X10*3/uL (0.0-0.2); Basophils Percent Auto 0.7 % (0-2); Eosinophils Absolute Auto 0.4 X10*3/uL (0.0-0.4); Eosinophils Percent Auto 2.4 % (0-4); Hematocrit 43.1 % (37.0-47.0); Hemoglobin 13.8 g/dl (12.0-16.0); Imm Gran Abs Auto 0.03 X10*3/uL (0.00-0.03); Imm Gran Pct Auto 0.2 % (0.0-0.4); Lymphocytes Percent Auto 73.9 % (20-40); MANUAL DIFF FLAG SCAN; Mean Corpuscular Hemoglobin 29.7 pg (27.0-33.0); Mean Corpuscular Volume 92.7 fL (80.0-98.0); Mean Platelet Volume 10.9 fL (9.4-12.3); Monocytes Absolute Auto 0.8 X10*3/uL (0.1-1.2); Monocytes Percent Auto 4.4 % (2-11); Neutrophils Absolute Auto 3.1 x10*3/uL (2.0-8.3); Neutrophils Percent Auto 18.4 % (45-73); Red Blood Count 4.65 X10*6/uL (4.20-5.50); Red Cell Distribution Width 13.4 % (11.0-16.0); SCAN SMEAR FLAG 1; White Blood Count 16.9 X10*3/uL (4.8-10.8)
[2022-11-07 12:38] LABS: Lymphocytes Absolute Auto 12.5 X10*3/uL (1.2-4.9); Platelet Count 79 X10*3/uL (160-400)
[2022-11-07 12:58] LABS: SLIDE REVIEW VERIFIED
[2022-11-07 14:41] LABS: Alanine Aminotransferase 12 U/L (0-31); Albumin Level 4.1 g/dL (3.5-5.0); Alkaline Phosphatase 54 U/L (39-117); Anion Gap 14 (12-20); Aspartate Amino Transferase 20 U/L (5-31); Bilirubin Direct 0.1 mg/dL (0.0-0.5); Bilirubin Total 0.3 mg/dL (0.0-1.0); Blood Urea Nitrogen 13 mg/dL (9-16); Carbon Dioxide 26 mmol/L (22-29); Chloride 103 mmol/L (96-108); Cholesterol 219 mg/dL; Estimated Glomerular Filt Rate > 60; Glucose Fasting 87 mg/dL (60-99); HDL Cholesterol 70 mg/dL; LDL Cholesterol Calculated 132 mg/dl; Potassium 4.7 mmol/L (3.3-5.1); Sodium 138 mmol/L (135-145); Total Protein 7.2 g/dL (6.5-8.0); Triglycerides 88 mg/dL
== END 2022-11-07 09:29 | disposition home or self-care (01) ==
LOC: HO.HMGCLDS 09:28
PROVIDERS: PCP Internal Medicine; Visit Provider Internal Medicine
DX: Z00.00 Encounter for general adult medical examination without abnormal findings (principal); R53.83 Other fatigue; E78.5 Hyperlipidemia, unspecified
CPT/HCPCS: 36415; 80051; 80061; 80076; 82565; 82947; 84520; 85025

== ENCOUNTER 2022-11-17 10:25 | Outpatient (REF) | payer MEDICARE, SELFPAY ==
--- NOTE | ~2022-11-17 | MM_ITS ---
EXAMINATION: MM SCREENING DIGITAL BREAST TOMOSYNTHESIS, BILATERAL CLINICAL INFORMATION: Screening. Asymptomatic. The lifetime risk of breast cancer based on the Tyrer-Cuzick Model is 2%. COMPARISON: Mammography: This study is compared with prior exams dating back to 2019. TECHNIQUE: Digital breast tomosynthesis is performed in both the craniocaudal and mediolateral oblique views along with computer-aided detection (CAD). Synthesized 2D images are generated from the tomosynthesis. FINDINGS: The breasts are almost entirely fatty (ACR BI-RADS breast composition Category a). There are no significant masses, abnormal calcifications, or other abnormalities. MM/MM tomosynthesis screening BI IMPRESSION: No mammographic evidence of malignancy. ASSESSMENT: BI-RADS BI-RADS 1 - Negative RECOMMENDATION: Routine annual mammography screening. 1 year F/U This examination should not preclude the clinical evaluation of a suspicious palpable abnormality. This patient's information was entered into a reminder system with a target due date for their next mammogram.
== END 2022-11-17 10:26 | disposition home or self-care (01) ==
LOC: HO.MAMMO 10:25
PROVIDERS: PCP Internal Medicine; Visit Provider Internal Medicine
DX: Z12.31 Encounter for screening mammogram for malignant neoplasm of breast (principal)
CPT/HCPCS: 77063; 77067

== ENCOUNTER → 2022-11-17 10:30 | Outpatient (BNV) | payer MEDICARE, SELFPAY | PROVIDERS: PCP Internal Medicine; Visit Provider Radiology Diagnostic Radiology | DX: Z12.31 Encounter for screening mammogram for malignant neoplasm of breast (principal) | CPT/HCPCS: 77063; 77067 ==

== ENCOUNTER 2022-12-03 10:16 | Outpatient (REF) | payer MEDICARE, SELFPAY ==
[2022-12-03 13:47] LABS: Alanine Aminotransferase 11 U/L (0-31); Albumin Level 4.1 g/dL (3.5-5.0); Alkaline Phosphatase 54 U/L (39-117); Anion Gap 12 (12-20); Aspartate Amino Transferase 20 U/L (5-31); Bilirubin Total 0.3 mg/dL (0.0-1.0); Blood Urea Nitrogen 11 mg/dL (9-16); Calcium 9.8 mg/dL (8.4-10.2); Carbon Dioxide 28 mmol/L (22-29); Chloride 105 mmol/L (96-108); Estimated Glomerular Filt Rate > 60; Glucose Random 63 mg/dL (60-115); Sodium 140 mmol/L (135-145); Total Protein 7.3 g/dL (6.5-8.0)
[2022-12-03 14:04] LABS: Erythrocyte Sedimentation Rate 16 MM/HR (0-20)
== END 2022-12-03 10:17 | disposition home or self-care (01) ==
LOC: HO.HMGCLDS 10:16
PROVIDERS: PCP Internal Medicine; Visit Provider Nurse Practitioner Family
DX: M35.3 Polymyalgia rheumatica (principal)
CPT/HCPCS: 36415; 80053; 85652; 86140

== ENCOUNTER 2022-12-10 12:01 | Outpatient (AMB) | payer MEDICARE, SELFPAY ==
[2022-12-10 12:04] VITALS: BP 106/60; PULSE 80; TEMP 36.9; O2SAT 91; BMI 20.3
--- NOTE | 2022-12-10 12:04 | A.OFFVIS_ITS ---
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 She was last seen by Mickie Nassar 09/09.. Off prednisone since 08/10 Patient is doing well overall. No new symptoms. She gets some stiffness of her shoulders that improves as the day goes on. CLL being monitored by Dr Ward. Recently her platelets were dropping and she has a follow-up visit with Dr. Ward soon [facility] Medical History Current smoker Cyclic citrullinated peptide (CCP) antibody positive Osteoporosis Polymyalgia rheumatica Surgical History History of tonsillectomy and adenoidectomy Social History Alcohol intake: never Patient Tobacco Use Status: Current someday Tobacco user Tobacco use type: Cigarette Cigarettes Per Day: 2 Years Smoked: (onset 16yo, 1/2ppd x 56yrs - 28pyh, quit for 5yrs, now at 1-2 cig/day) e-Cigarette/Vaping Use: Never Used Review of Systems Musc Denies arthralgias and Reports stiffness Physical Exam Vital Signs: Last Vital Signs Temp 98.4 F 12/10/22 12:04 Pulse 80 12/10/22 12:04 BP 106/60 12/10/22 12:04 Pulse Ox 91 L 12/10/22 12:04 BMI result Body Mass Index 20.3 Const General: cooperative, healthy appearing and comfortable Nutritional Appearance: average body habitus Orientation/consciousness: patient oriented x3 Limitations: no limitations HEENT Head: Yes normocephalic and Yes atraumatic Mouth: moist mucous membranes Resp Effort & Inspection: normal respiratory effort and able to speak in complete sentences Skin Other: Fragile skin in both in both forearms and legs. on her left she has areas of old sub cutaneous bleeding Neuro General: patient oriented x3 Extrem Other: Mild osteoarthritic changes of both hands with no active synovitis Normal range of motion of right shoulder, minimally limited range of motion of left shoulder Normal range of motion of both hips Results Reviewed Results Reviewed: Laboratory Tests Date of Service: 01/16/22 EXAMINATION: XR SHOULDER, RIGHT CLINICAL INFORMATION: Pain.? COMPARISON: None? TECHNIQUE: AP external rotation, Grashey and scapula Y views of the right shoulder are submitted. FINDINGS: None Mineralization are normal. The glenohumeral joint is intact. There is very mild osteoarthritic change of the right glenohumeral joint. The acromioclavicular and coracoclavicular intervals are normal. No fracture or dislocation is seen. There is no abnormal soft tissue calcifications or foreign body. No right pneumothorax is seen.? XR/XR shoulder RT min 2V IMPRESSION: ? 1. No fracture or dislocation is seen. ? 2. There is mild osteoarthritic change of the right glenohumeral joint. ? ? EXAMINATION: XR SHOULDER, LEFT ? CLINICAL INFORMATION: Pain.? ? COMPARISON: Radiographs dated 12/19/2008.? ? TECHNIQUE: AP external rotation, Grashey and scapula Y views of the left shoulder are submitted. ? FINDINGS: Bony alignment and mineralization are normal. The glenohumeral joint is intact. The acromioclavicular and coracoclavicular intervals are normal. There is mild osteoarthritic change of the glenohumeral and acromioclavicular joints. No fracture or dislocation is seen. There is no abnormal soft tissue calcification or foreign body. There is no left pneumothorax. ? IMPRESSION: ? 1. No fracture or dislocation is seen. ? 2. There is mild osteoarthritic change of the left glenohumeral and acromioclavicular joints.C-Reactive Protein 0.48 Assessment & Plan Assessment & Plan (1) Polymyalgia rheumatica: Comment: Prednisone 12/2019-10/2021. Restarted February 2022- 07/2022 Code(s): M35.3 - Polymyalgia rheumatica Plan: Patient without evidence of PMR symptoms on exam today. Off prednisone since 07/2022. At this time it appears patient's PMR is in remission. Inflammatory markers are normal. Follow-up in 4 months (2) Osteoporosis: Comment: Alendronate: November 2019- present Code(s): M81.0 - Age-related osteoporosis without current pathological fracture Qualifiers: Osteoporosis type: age-related Presence of current pathological fracture: without current pathological fracture Qualified Code(s): M81.0 - Age- related osteoporosis without current pathological fracture Plan: DEXA from October 2019 with osteopenia but high FRAX score in the hip. On alendronate weekly started November 2019. Repeat DEXA 10/2021 AP spine L1-L4, T-score -1.8, 3.2% increase from baseline; left femur neck T-score -2.2; left femur total T-score -1.4, 1.7% increase from baseline. Osteopenia based on the lowest T-score of -2.2. Repeat DEXA is stable. Will continue alendronate 70 mg once weekly for now. Repeat DEXA 10/2023 (3) Cyclic citrullinated peptide (CCP) antibody positive: Code(s): R79.89 - Other specified abnormal findings of blood chemistry Plan: Rheumatoid factor negative, anti CCP antibody positive. No features of inflammatory arthritis on exam. Can be related to her history of smoking Plan I spent 24 minutes reviewing patient's chart, evaluating patient, counseling patient and documenting in the chart Coding Level of Care Code Est Pt Level 4 (29532) Diagnoses Polymyalgia rheumatica M35.3 Osteoporosis M81.0 Osteoporosis type: age-related Presence of current pathological fracture: without current pathological fracture Cyclic citrullinated peptide (CCP) antibody positive R79.89
== END 2022-12-10 12:30 | disposition home or self-care (01) ==
PROVIDERS: PCP Internal Medicine; Visit Provider Student in an Organized Health Care Education/Training Program
DX: M35.3 Polymyalgia rheumatica (principal); M81.0 Age-related osteoporosis without current pathological fracture; R79.89 Other specified abnormal findings of blood chemistry
CPT/HCPCS: 99214

== ENCOUNTER → 2022-12-10 12:01 | Outpatient (BNVA) | payer MEDICARE, SELFPAY | PROVIDERS: PCP Internal Medicine; Visit Provider Student in an Organized Health Care Education/Training Program | DX: M35.3 Polymyalgia rheumatica (principal); M81.0 Age-related osteoporosis without current pathological fracture; R79.89 Other specified abnormal findings of blood chemistry | CPT/HCPCS: 99212 ==

== ENCOUNTER 2022-12-22 10:24 | Emergency (ER) | payer MEDICARE, SELFPAY ==
--- NOTE | ~2022-12-22 | XR_ITS ---
EXAMINATION: XR CHEST CLINICAL INFORMATION: Shortness of breath COMPARISON: Previous chest x-ray September [address] July 2022 TECHNIQUE: Frontal view of the chest was obtained. FINDINGS: No significant abnormality is noted involving the heart, lungs, mediastinum, bony thorax or soft tissues. XR/XR chest 1V IMPRESSION: Unremarkable examination.
[2022-12-22 10:25] VITALS: BP 142/73; PULSE 87; RESP 18; TEMP 36.9; O2SAT 95; BMI 20.5
--- NOTE | 2022-12-22 10:36 | PC.NURSE ---
Patient reporting that she was seen by her pcp about a week ago and started on abt for nasal congestion and chest congestion with cough. Reports clear sputum with cough. Was started on levofloxacin for 7 days with little improvement. Patient states last dose will be tomorrow. reports tested herself thu and thursday for covid and was negative. denies headache or chest pain
[2022-12-22 10:39] VITALS: O2SAT 96
--- NOTE | 2022-12-22 11:07 | ECG_ITS ---
Test Reason : sob Blood Pressure : / mmHG Vent. Rate : 068 BPM Atrial Rate : 068 BPM P-R Int : 136 ms QRS Dur : 072 ms QT Int : 378 ms P-R-T Axes : 073 067 069 degrees QTc Int : 401 ms Normal sinus rhythm Nonspecific ST abnormality Abnormal ECG No previous ECGs available Referred By: Guillermo Lorenzana Electronically Signed By:JAMISON LOWERY
--- NOTE | 2022-12-22 11:08 | ED_ITS ---
HPI - General Adult General Chief complaint: Upper Respiratory Symptoms Stated complaint: diff breathing Time Seen by Provider: 12/22/22 11:01 Source: patient and family ( A neighbor) Mode of arrival: ambulatory Limitations: no limitations History of Present Illness HPI narrative: a 77-year-old female with a long history of smoking presented with 2 weeks of coughing with clear sputum, patient been having chest pain that is with coughing, declined any fever or chills. Patient was seen and evaluated by PCP had 6 days of Levaquin as an outpatient with no improvement of her symptoms. No recent travel, no lower extremity swelling or tenderness, no sick contacts, no fever, no chills. No history of PE or DVT. No known history of COPD or asthma, patient had a recent CT of the chest for evaluation of lung nodule that is been followed up by PCP. Related Data Home Medications Medication Instructions Recorded Confirmed cholecalciferol (vitamin D3) 50 50 mcg PO DAILY 03/08/20 08/06/22 mcg (2,000 unit) capsule multivitamin 1 tab PO DAILY 03/08/20 08/06/22 omega-3 fatty acids 1,000 mg 1,000 mg PO DAILY 03/08/20 08/06/22 capsule cyclosporine 0.05 % eye drops 1 drp ophthalmic (eye) Q12H 07/20/20 08/06/22 (Restasis MultiDose) Previous Rx's Medication Instructions Recorded alendronate 70 mg tablet 70 mg PO QWEEK #12 tabs 12/09/22 albuterol sulfate 90 mcg/actuation 1 inh inhalation QID PRN shortness 12/22/22 aerosol inhaler of breath or wheezing #8.5 grams prednisone 20 mg tablet 20 mg PO BID #10 tabs 12/22/22 Allergies Allergy/AdvReac Type Severity Reaction Status Date / Time codeine AdvReac Intermediate nausea Verified 12/22/22 10:29 Review of Systems Review of Systems: all other systems are reviewed and are negative Constitutional: Reports as per HPI and Reports no additional constitutional complaints Eyes: Reports as per HPI and Reports no additional eye complaints Reports system reviewed and no additional complaints, except as documented Cardiovascular: Reports as per HPI and Reports no additional cardiovascular complaints Respiratory: Reports as per HPI and Reports no additional respiratory complaints Gastrointestinal: Reports as per HPI and Reports no additional gastrointestinal complaints Genitourinary: Reports no additional female genitourinary complaints Musculoskeletal: Reports no additional musculoskeletal complaints Skin/Breast: Reports system reviewed and no additional complaints, except as docu Psychiatric: Reports no additional psychiatric complaints Endocrine: Reports no additional endocrine complaints Hematologic/Lymphatic: Reports no additional hematologic/lymphatic complaints Allergic/Immunologic: Reports no additional allergic/immunologic complaints Reports system reviewed and no additional complaints, except as documented and Reports Abnormal speech present [facility] Past Medical History Medical History Current smoker Cyclic citrullinated peptide (CCP) antibody positive Osteoporosis Polymyalgia rheumatica Surgical History History of tonsillectomy and adenoidectomy Social History Social History Alcohol intake: never Patient Tobacco Use Status: Current someday Tobacco user Tobacco use type: Cigarette Cigarettes Per Day: 2 Years Smoked: (onset 16yo, 1/2ppd x 56yrs - 28pyh, quit for 5yrs, now at 1-2 cig/day) Smoked in Last 30 Days: Yes e-Cigarette/Vaping Use: Never Used Use of substances other than those prescribed or required for medical reasons: No Advance Directives: No Advance Directives Information Provided: Yes Physical Exam ED Vital Signs: Vital Signs - 24 hr 12/22/22 10:25 12/22/22 10:39 12/22/22 11:41 Temperature 98.5 F Pulse Rate 87 73 Respiratory Rate 18 16 Blood Pressure 142/73 H Pulse Oximetry 95 96 Oxygen Delivery Method Room Air Room Air BMI result Body Mass Index 20.5 vital signs have been reviewed as appeared to be correct. Blood pressure normal. Heart rate normal. Respiration rate normal. Temperature normal. Oxygen saturation normal. Appearance: Alert. Oriented X3. No acute distress. Head: Normal external exam. Normocephalic. Atraumatic. No Gan signs noted. No raccoon eyes noted Eyes: PERRLA. EOMI. Conjunctiva and sclera normal. Eyelids normal. ENT: TM's Normal. Pharynx normal. Uvula midline. Moist mucous membranes. No trismus noted. No drooling noted. No muffled voice noted. Neck: Normal inspection. Neck supple. FROM. No adenopathy. Thyroid Normal. No meningeal signs. No neck mass noted. CVS: Normal heart rate and rhythm. Heart sound normal. No murmurs noted. Pulses normal throughout. Respiratory: No respiratory distress. Painless inspiration. Breath sounds normal. diffuse mild expiratory wheezing with prolonged expiration. No accessory muscle usage noted or decreased air movement noted. Abdomen: Soft and nontender. Bowel sounds normal in all 4 quadrants. No distention noted. No organomegaly noted. No visible injury noted. Back: No CVA tenderness. Full range of motion noted. Skin: Skin warm and dry. Normal skin color. Normal skin turgor. No rashes/lesions/lacerations noted. Extremities: No lower extremity edema. Extremities exhibit normal range of motion. Extremities nontender. Neuro: Oriented X 3. Cranial nerve exam: II-XII are grossly intact No motor deficit. No sensory deficit. Reflexes normal. Course Reevaluation(s) Reevaluation #1: 77-year-old female with long history of smoking presented with cough, exam, chest x-ray, labs are consistent with acute bronchitis patient felt better after was given prednisone in the emergency department and bronchodilator treatment with significant improvement of patient's symptoms. Labs revealing mild leukocytosis secondary to bronchitis. Pulmonary nodule that is been worked up by PCP. Start the patient on prednisone for 5 days, continue levofloxacin, bronchodilator. Time: 13:34 Medications Administered Discontinued Medications Generic Name Dose Route Start Last Admin Trade Name Freq PRN Reason Stop Dose Admin Albuterol Sulfate 5 mg 12/22/22 11:11 12/22/22 11:38 Albuterol Sulfate (0.083%) 2.5 Mg/3 Ml Vial.Neb INHALE 12/22/22 11:12 5 mg ONCE ONE Administration Albuterol/Ipratropium 3 ml 12/22/22 11:11 12/22/22 11:38 Albuterol/Iprat 2.5/0.5mg 3 Ml Ampul.Neb INHALE 12/22/22 11:12 3 ml ONCE ONE Administration Prednisone 60 mg 12/22/22 11:11 12/22/22 11:16 Prednisone 20 Mg Tablet PO 12/22/22 11:12 60 mg ONCE ONE Administration Medical Decision Making Differential Diagnosis Differential Diagnoses: The differential diagnosis associated with the presentation includes (pneumonia, pneumothorax, CHF, ACS, pleural effusion, viral respiratory infection, electrolytes abnormalities, severe anemia , UTI.) Admission/Observation Consideration of admission/observation: Escalation of care including admission/observation considered Lab Data MDM Lab Attestation statement: I reviewed the patient's lab results. 12/22/22 12:16 12/22/22 12:16 Labs: Lab Results 12/22/22 12/22/22 12/22/22 Range/Units 12:16 12:16 12:16 WBC 13.9 H (4.8-10.8) X10*3/uL RBC 4.75 (4.20-5.50) X10*6/uL Hgb 14.1 (12.0-16.0) g/dl Hct 43.0 (37.0-47.0) % MCV 90.5 (80.0-98.0) fL MCH 29.7 (27.0-33.0) pg MCHC 32.8 (31.0-35.0) g/dl RDW 13.3 (11.0-16.0) % Plt Count 61 L (160-400) X10*3/uL MPV 9.6 (9.4-12.3) fL Immature Gran % (Auto) 0.2 (0.0-0.4) % Neut % (Auto) 22.4 L (45-73) % Lymph % (Auto) 69.4 H (20-40) % [place] % (Auto) 5.3 (2-11) % Eos % (Auto) 1.8 (0-4) % Baso % (Auto) 0.9 (0-2) % Lymph # (Auto) 9.7 H (1.2-4.9) X10*3/uL [place] # (Auto) 0.7 (0.1-1.2) X10*3/uL Eos # (Auto) 0.3 (0.0-0.4) X10*3/uL Baso # (Auto) 0.1 (0.0-0.2) X10*3/uL Abs Immat Gran (auto) 0.03 (0.00-0.03) X10*3/uL Absolute Neuts (auto) 3.1 (2.0-8.3) x10*3/uL Absolute Nucleated RBC 0.000 (0.0-0.012) X10*3/uL Nucleated RBC % (auto) 0.0 (0.0-0.2) /100WBC Smear Tech's Comments VERIFIED Sodium 141 (135-145) mmol/L Potassium 3.8 D (3.3-5.1) mmol/L Chloride 106 (96-108) mmol/L Carbon Dioxide 24 (22-29) mmol/L Anion Gap 15 (12-20) BUN 10 (9-16) mg/dL Creatinine 0.75 (0.5-1.4) mg/dL Estim Creat Clear Calc 50.2 Estimated GFR > 60 Random Glucose 95 (60-115) mg/dL Calcium 9.4 (8.4-10.2) mg/dL Total Bilirubin 0.4 (0.0-1.0) mg/dL Direct Bilirubin 0.1 (0.0-0.5) mg/dL AST 22 (5-31) U/L ALT 15 (0-31) U/L Alkaline Phosphatase 59 (39-117) U/L Troponin I High Sens < 2.7 (<3.5-17.0) ng/L B-Natriuretic Peptide (<100) pg/mL Total Protein 7.1 (6.5-8.0) g/dL Albumin 4.1 (3.5-5.0) g/dL Lipase 26 (8-78) U/L Urine Color Urine Appearance Urine pH (5.0-9.0) Ur Specific [place] (1.005-1.025) Urine Protein (Neg-Trace) mg/dL Urine Glucose (UA) (Negative) mg/dL Urine Ketones (Negative) mg/dL Urine Blood (Negative) Urine Nitrite (Negative) Ur Leukocyte Esterase (Negative) Urine RBC (0-2) /HPF Urine WBC (0-5) /HPF Ur Squamous Epith Cells (0-2) /HPF Urine Bacteria (None Seen) Hyaline Casts (0-2) /LPF Influenza Type A (PCR) (Negative) Influenza Type B (PCR) (Negative) RSV RNA Qual (PCR) (Negative) SARS-CoV-2 RNA (RT-PCR) (Negative) 12/22/22 12/22/22 12/22/22 Range/Units 12:16 12:40 12:40 WBC (4.8-10.8) X10*3/uL RBC (4.20-5.50) X10*6/uL Hgb (12.0-16.0) g/dl Hct (37.0-47.0) % MCV (80.0-98.0) fL MCH (27.0-33.0) pg MCHC (31.0-35.0) g/dl RDW (11.0-16.0) % Plt Count (160-400) X10*3/uL MPV (9.4-12.3) fL Immature Gran % (Auto) (0.0-0.4) % Neut % (Auto) (45-73) % Lymph % (Auto) (20-40) % [place] % (Auto) (2-11) % Eos % (Auto) (0-4) % Baso % (Auto) (0-2) % Lymph # (Auto) (1.2-4.9) X10*3/uL [place] # (Auto) (0.1-1.2) X10*3/uL Eos # (Auto) (0.0-0.4) X10*3/uL Baso # (Auto) (0.0-0.2) X10*3/uL Abs Immat Gran (auto) (0.00-0.03) X10*3/uL Absolute Neuts (auto) (2.0-8.3) x10*3/uL Absolute Nucleated RBC (0.0-0.012) X10*3/uL Nucleated RBC % (auto) (0.0-0.2) /100WBC Smear Tech's Comments Sodium (135-145) mmol/L Potassium (3.3-5.1) mmol/L Chloride (96-108) mmol/L Carbon Dioxide (22-29) mmol/L Anion Gap (12-20) BUN (9-16) mg/dL Creatinine (0.5-1.4) mg/dL Estim Creat Clear Calc Estimated GFR Random Glucose (60-115) mg/dL Calcium (8.4-10.2) mg/dL Total Bilirubin (0.0-1.0) mg/dL Direct Bilirubin (0.0-0.5) mg/dL AST (5-31) U/L ALT (0-31) U/L Alkaline Phosphatase (39-117) U/L Troponin I High Sens (<3.5-17.0) ng/L B-Natriuretic Peptide 30 (<100) pg/mL Total Protein (6.5-8.0) g/dL Albumin (3.5-5.0) g/dL Lipase (8-78) U/L Urine Color Yellow Urine Appearance Clear Urine pH 6.5 (5.0-9.0) Ur Specific [place] <= 1.005 (1.005-1.025) Urine Protein Negative (Neg-Trace) mg/dL Urine Glucose (UA) Negative (Negative) mg/dL Urine Ketones Negative (Negative) mg/dL Urine Blood Trace H (Negative) Urine Nitrite Negative (Negative) Ur Leukocyte Esterase Negative (Negative) Urine RBC 0-2 (0-2) /HPF Urine WBC 0-5 (0-5) /HPF Ur Squamous Epith Cells 0-2 (0-2) /HPF Urine Bacteria None Seen (None Seen) Hyaline Casts 0-2 (0-2) /LPF Influenza Type A (PCR) NEGATIVE (Negative) Influenza Type B (PCR) NEGATIVE (Negative) RSV RNA Qual (PCR) NEGATIVE (Negative) SARS-CoV-2 RNA (RT-PCR) NEGATIVE (Negative) Independent Interpretation I performed an independent interpretation of an: Plain X-Ray ( unremarkable examination) Radiology Impression Discussion of test interpretation with radiology: I have reviewed the radiologist's reading. Discharge Plan Discharge Clinical Impression: Bronchitis, Pulmonary nodule Patient Disposition: Home, Self-Care Instructions: Acute Bronchitis (ED) Prescriptions: New prednisone 20 mg tablet 20 mg PO BID Qty: 10 0RF albuterol sulfate 90 mcg/actuation HFA aerosol inhaler 1 inh inhalation QID PRN (Reason: shortness of breath or wheezing) Qty: 8.5 0RF No Action alendronate 70 mg tablet 70 mg PO QWEEK Qty: 12 0RF Restasis MultiDose 0.05 % drops 1 drp ophthalmic (eye) Q12H multivitamin Tablet 1 tab PO DAILY omega-3 fatty acids 1,000 mg capsule 1,000 mg PO DAILY cholecalciferol (vitamin D3) 50 mcg (2,000 unit) capsule 50 mcg PO DAILY Referrals: Juliano Beck MD [Primary Care Provider] -
[2022-12-22] MEDS: predniSONE 20 MG TABLET 60 MG PO (11:16)
[2022-12-22] MEDS: Albuterol/Iprat 2.5/0.5MG 3 ML AMPUL.NEB INHALE (11:38)
[2022-12-22] MEDS: Albuterol Sulfate (0.083%) 2.5 MG/3 ML VIAL.NEB 5 MG INHALE (11:38)
[2022-12-22 11:41] VITALS: PULSE 73; RESP 16; O2SAT 93
[2022-12-22 12:26] LABS: Basophils Absolute Auto 0.1 X10*3/uL (0.0-0.2); Basophils Percent Auto 0.9 % (0-2); Eosinophils Absolute Auto 0.3 X10*3/uL (0.0-0.4); Eosinophils Percent Auto 1.8 % (0-4); Hemoglobin 14.1 g/dl (12.0-16.0); Imm Gran Abs Auto 0.03 X10*3/uL (0.00-0.03); Imm Gran Pct Auto 0.2 % (0.0-0.4); Lymphocytes Percent Auto 69.4 % (20-40); MANUAL DIFF FLAG SCAN; Mean Corpuscular HGB Conc 32.8 g/dl (31.0-35.0); Mean Corpuscular Hemoglobin 29.7 pg (27.0-33.0); Mean Corpuscular Volume 90.5 fL (80.0-98.0); Mean Platelet Volume 9.6 fL (9.4-12.3); Monocytes Absolute Auto 0.7 X10*3/uL (0.1-1.2); Monocytes Percent Auto 5.3 % (2-11); Neutrophils Absolute Auto 3.1 x10*3/uL (2.0-8.3); Neutrophils Percent Auto 22.4 % (45-73); Red Blood Count 4.75 X10*6/uL (4.20-5.50); Red Cell Distribution Width 13.3 % (11.0-16.0); SCAN SMEAR FLAG 1; White Blood Count 13.9 X10*3/uL (4.8-10.8)
[2022-12-22 12:27] LABS: Lymphocytes Absolute Auto 9.7 X10*3/uL (1.2-4.9); Platelet Count 61 X10*3/uL (160-400)
[2022-12-22 12:42] LABS: SLIDE REVIEW VERIFIED
[2022-12-22 12:45] LABS: Alanine Aminotransferase 15 U/L (0-31); Albumin Level 4.1 g/dL (3.5-5.0); Alkaline Phosphatase 59 U/L (39-117); Anion Gap 15 (12-20); Aspartate Amino Transferase 22 U/L (5-31); Bilirubin Direct 0.1 mg/dL (0.0-0.5); Bilirubin Total 0.4 mg/dL (0.0-1.0); Blood Urea Nitrogen 10 mg/dL (9-16); Calcium 9.4 mg/dL (8.4-10.2); Carbon Dioxide 24 mmol/L (22-29); Chloride 106 mmol/L (96-108); Creatinine Clr Calc Pharmacy 50.2; Estimated Glomerular Filt Rate > 60; Glucose Random 95 mg/dL (60-115); Lipase 26 U/L (8-78); Potassium 3.8 mmol/L (3.3-5.1); Sodium 141 mmol/L (135-145); Total Protein 7.1 g/dL (6.5-8.0)
[2022-12-22 12:50] LABS: B Type Natriuretic Peptide 30 pg/mL (<100)
[2022-12-22 12:51] LABS: Appearance Urine Clear; Color Urine Yellow; Glucose Urine UA Negative (Negative); Leukocyte Esterase Urine Negative (Negative); Nitrite Urine Negative (Negative); PH 6.5 (5.0-9.0); Specific Gravity - Urine <= 1.005 (1.005-1.025); UMIC TRIGGER UACC YES; Urine Blood Trace (Negative); Urine Ketones Negative (Negative); Urine Protein Negative (Neg-Trace)
[2022-12-22 12:54] LABS: Bacteria Urine None Seen (None Seen); Hyaline Casts Urine 0-2 /LPF (0-2); RBC Urine 0-2 /HPF (0-2); Squamous Epithelial Cell Urine 0-2 /HPF (0-2); WBC Urine 0-5 /HPF (0-5)
[2022-12-22 13:13] LABS: Troponin-I High Sensitivity < 2.7 ng/L (<3.5-17.0)
[2022-12-22 13:27] LABS: Influenza A PCR NEGATIVE (Negative); Influenza B PCR NEGATIVE (Negative); Resp Syncy Virus RNA Qual PCR NEGATIVE (Negative); SARS COV2 PCR INHOUSE NEGATIVE (Negative)
--- NOTE | 2022-12-22 13:48 | PC.NURSE ---
Discharge plan reviewed with patient and daughter who verbalized understanding
== END 2022-12-22 13:48 | disposition home or self-care (01) ==
PROVIDERS: Emergency Provider Emergency Medicine; PCP Internal Medicine
DX: J40 Bronchitis, not specified as acute or chronic (principal); R06.02 Shortness of breath; R05.9 Cough, unspecified; R94.31 Abnormal electrocardiogram [ECG] [EKG]; R07.89 Other chest pain; F17.210 Nicotine dependence, cigarettes, uncomplicated; Z20.822 Contact with and (suspected) exposure to COVID-19; Z20.828 Contact with and (suspected) exposure to other viral communicable diseases; Z79.899 Other long term (current) drug therapy; Z71.6 Tobacco abuse counseling
CPT/HCPCS: 0241U; 36415; 71045; 80048; 80076; 81001; 83690; 83880; 84484; 85025; 93005; 94640; 99284; 99285

== ENCOUNTER 2023-01-02 11:13 | Outpatient (REF) | payer MEDICARE, SELFPAY ==
[2023-01-02 14:04] LABS: Hemoglobin 14.5 g/dl (12.0-16.0); Mean Corpuscular HGB Conc 32.2 g/dl (31.0-35.0); Mean Corpuscular Hemoglobin 29.6 pg (27.0-33.0); Mean Corpuscular Volume 91.8 fL (80.0-98.0); Mean Platelet Volume 11.1 fL (9.4-12.3); Red Cell Distribution Width 13.8 % (11.0-16.0)
[2023-01-02 14:05] LABS: Platelet Count 71 X10*3/uL (160-400); WBC ABN SCTR FOR CBC 1
[2023-01-02 14:26] LABS: Band Neutrophils Percent 2 % (3-5); Eosinophils Percent Manual 1 % (0-4); Lymphocytes Percent Manual 74 % (20-40); Monocytes Percent Manual 4 % (2-11); Neutrophils Percent Manual 19 % (45-73)
[2023-01-02 14:28] LABS: Large Platelet PRESENT; Platelet Estimate DECREASED (NORMAL); Platelet Morphology Comment NOTED; RBC Morphology NORMAL
[2023-01-02 14:47] LABS: Alanine Aminotransferase 15 U/L (0-31); Alkaline Phosphatase 55 U/L (39-117); Anion Gap 12 (12-20); Aspartate Amino Transferase 20 U/L (5-31); Bilirubin Total 0.3 mg/dL (0.0-1.0); Blood Urea Nitrogen 10 mg/dL (9-16); Calcium 9.1 mg/dL (8.4-10.2); Carbon Dioxide 26 mmol/L (22-29); Chloride 104 mmol/L (96-108); Estimated Glomerular Filt Rate > 60; Glucose Random 69 mg/dL (60-115); Potassium 4.2 mmol/L (3.3-5.1); Sodium 138 mmol/L (135-145); Total Protein 6.9 g/dL (6.5-8.0)
[2023-01-02 15:01] LABS: Eosinophils Absolute Manual 0.3 X10*3/uL (0.0-0.4); Lymphocytes Absolute Manual 20.2 X10*3/uL (1.2-4.9); Monocytes Absolute Manual 1.1 X10*3/uL (0.1-1.2); Neutrophils Absolute Manual 5.7 X10*3/uL (2.0-8.3); White Blood Count 27.3 X10*3/uL (4.8-10.8)
[2023-01-05 13:59] LABS: Calcium (PTHI) 8.8 mg/dL (8.6-10.4); PTHI 76 pg/mL (16-77)
== END 2023-01-02 11:14 | disposition home or self-care (01) ==
LOC: HO.HMGCLDS 11:13
PROVIDERS: Internal Medicine Medical Oncology; PCP Internal Medicine; Visit Provider Internal Medicine
DX: C91.90 Lymphoid leukemia, unspecified not having achieved remission (principal)
CPT/HCPCS: 36415; 80053; 83970; 85007; 85025; 85027

== ENCOUNTER 2023-02-19 10:19 | Outpatient (REF) | payer MEDICARE, SELFPAY ==
[2023-02-19 13:31] LABS: Basophils Absolute Auto 0.1 X10*3/uL (0.0-0.2); Basophils Percent Auto 0.7 % (0-2); Eosinophils Absolute Auto 0.4 X10*3/uL (0.0-0.4); Eosinophils Percent Auto 2.3 % (0-4); Hematocrit 43.1 % (37.0-47.0); Hemoglobin 13.9 g/dl (12.0-16.0); Imm Gran Abs Auto 0.05 X10*3/uL (0.00-0.03); Imm Gran Pct Auto 0.3 % (0.0-0.4); Lymphocytes Percent Auto 68.8 % (20-40); MANUAL DIFF FLAG SCAN; Mean Corpuscular HGB Conc 32.3 g/dl (31.0-35.0); Mean Corpuscular Hemoglobin 30.1 pg (27.0-33.0); Mean Corpuscular Volume 93.3 fL (80.0-98.0); Monocytes Absolute Auto 1.8 X10*3/uL (0.1-1.2); Monocytes Percent Auto 10.2 % (2-11); Neutrophils Absolute Auto 3.1 x10*3/uL (2.0-8.3); Neutrophils Percent Auto 17.7 % (45-73); Red Blood Count 4.62 X10*6/uL (4.20-5.50); Red Cell Distribution Width 13.7 % (11.0-16.0); SCAN SMEAR FLAG 1; White Blood Count 17.7 X10*3/uL (4.8-10.8)
[2023-02-19 13:32] LABS: Lymphocytes Absolute Auto 12.2 X10*3/uL (1.2-4.9); Platelet Count 90 X10*3/uL (160-400)
[2023-02-19 13:34] LABS: Alanine Aminotransferase 10 U/L (0-31); Albumin Level 4.1 g/dL (3.5-5.0); Alkaline Phosphatase 53 U/L (39-117); Anion Gap 9 (12-20); Aspartate Amino Transferase 21 U/L (5-31); Bilirubin Total 0.4 mg/dL (0.0-1.0); Blood Urea Nitrogen 12 mg/dL (9-16); Calcium 9.4 mg/dL (8.4-10.2); Carbon Dioxide 28 mmol/L (22-29); Chloride 106 mmol/L (96-108); Estimated Glomerular Filt Rate > 60; Glucose Random 68 mg/dL (60-115); Sodium 139 mmol/L (135-145); Total Protein 7.2 g/dL (6.5-8.0)
[2023-02-19 14:26] LABS: SLIDE REVIEW VERIFIED
== END 2023-02-19 10:20 | disposition home or self-care (01) ==
LOC: HO.HMGCLDS 10:19
PROVIDERS: PCP Internal Medicine Medical Oncology; Visit Provider Internal Medicine Medical Oncology
DX: C91.90 Lymphoid leukemia, unspecified not having achieved remission (principal)
CPT/HCPCS: 36415; 80053; 85025

== ENCOUNTER 2023-03-20 13:58 | Outpatient (REF) | payer MEDICARE, SELFPAY ==
--- NOTE | ~2023-03-20 | CT_ITS ---
EXAMINATION: CT SOFT TISSUE NECK WITHOUT CONTRAST CLINICAL INFORMATION: Left submandibular gland lump COMPARISON: None. TECHNIQUE: Helical imaging of the neck was performed in the axial plane without the administration of intravenous contrast and with generation of coronal and sagittal reformatted images. This CT examination was performed using dose optimization techniques as appropriate, variously including the following: *Automated exposure control. *Adjustment of mA and/or kV according to patient size (this includes techniques or standardized protocols for targeted exams where dose is matched to indication/reason for exam; i.e. extremities or head). *Use of iterative reconstruction technique. DLP: 233 mGy-cm. FINDINGS: Nasopharynx/Skull Base: The fat planes at the skull base and the soft tissues of the nasopharynx are within normal limits. Trace mucosal thickening in the right maxillary sinus. The remaining paranasal sinuses and mastoid air cells are well-aerated. Suprahyoid Neck: Mild nodular thickening along the lingual surface of the epiglottis protruding into the right greater than left vallecula. Mild nonspecific prominence of the right greater than left intraglandular submandibular ducts. The parotid glands appear within normal limits. Anomaly absent dentition. Infrahyoid Neck: Suboptimal evaluation secondary to motion. No definite exophytic mass/lesion within this constraint. Mild medialization of the right vocal fold is indeterminate. Thyroid: The thyroid is unremarkable without identifiable nodules. Nodes: There are soft tissue skin markers overlying the bilateral submandibular glands. A nonenlarged lymph node overlies the right submandibular gland. Bilateral mildly prominent 1 lymph nodes are noted anterior to the submandibular glands. Otherwise, no significant lymph nodes by CT size criteria. Lung Apices: Emphysematous changes in the partially visualized lung apices. Vascular Structures:Suboptimal evaluation on this noncontrast examination. Osseous Structures: Multiple level degenerative changes of the cervical spine. Other Findings: Limited intracranial evaluation is within normal limits. Bilateral intraocular lens replacements. CT/CT soft tissue neck wo IV con IMPRESSION: Mildly prominent lymph nodes in the bilateral level 1 neck/overlying the right submandibular gland are indeterminate. Finding may be reactive and clinical correlation is recommended. Attention on follow-up targeted ultrasound can be performed if symptoms persist.
== END 2023-03-20 13:59 | disposition home or self-care (01) ==
LOC: HO.CT 13:58
PROVIDERS: PCP Internal Medicine Medical Oncology; Visit Provider Internal Medicine
DX: C08.0 Malignant neoplasm of submandibular gland (principal)
CPT/HCPCS: 70490

== ENCOUNTER 2023-03-31 10:31 | Outpatient (AMB) | payer MEDICARE, SELFPAY ==
--- NOTE | 2023-03-31 10:32 | A.OFFVIS_ITS ---
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 Accompanied by: Self / Same As Patient Allergies codeine Adverse Reaction (Intermediate, Verified 03/31/23 10:38) nausea Medication List - Last Reconciled 03/31/23 by Nadya Saxena MD albuterol sulfate 90 mcg/actuation 1 inh inhalation QID PRN alendronate 70 mg PO QWEEK cholecalciferol (vitamin D3) 50 mcg PO DAILY cyclosporine 0.05% (Restasis MultiDose) 1 drp ophthalmic (eye) Q12H multivitamin 1 tab PO DAILY omega-3 fatty acids 1,000 mg PO DAILY HPI HPI Comments History of Present Illness Details 77yoF with a PMH of Chronic Lymphocytic Leukemia (no treatment - watchful waiting) follows with Dr Ward, presents for follow-up PMR and osteoarthritis. She was last seen 11/2022 Off prednisone since 08/10 Patient is doing well overall. No new symptoms. Recently she felt like she had a swollen lump in her neck and a CT scan of the neck was ordered, no new findings were found except for prominent lymph nodes. She was prescribed an antibiotic course with resolution of her symptoms [facility] Medical History Current smoker Osteoporosis Cyclic citrullinated peptide (CCP) antibody positive Polymyalgia rheumatica Surgical History History of tonsillectomy and adenoidectomy Social History Alcohol intake: never Patient Tobacco Use Status: Current someday Tobacco user Tobacco use type: Cigarette Cigarettes Per Day: 2 Years Smoked: (onset 16yo, 1/2ppd x 56yrs - 28pyh, quit for 5yrs, now at 1-2 cig/day) e-Cigarette/Vaping Use: Never Used Review of Systems Musc Denies arthralgias Skin/Breast Reports unusual bruising Physical Exam Vital Signs: Last Vital Signs Temp 98.6 F 03/31/23 10:33 Pulse 83 03/31/23 10:33 Resp 16 03/31/23 10:33 BP 106/62 03/31/23 10:33 Pulse Ox 96 03/31/23 10:33 Oxygen Delivery Method Room Air 03/31/23 10:33 BMI result Body Mass Index 20.9 Const General: cooperative, healthy appearing and comfortable Nutritional Appearance: average body habitus Orientation/consciousness: patient oriented x3 Limitations: no limitations HEENT Head: Yes normocephalic and Yes atraumatic Mouth: moist mucous membranes Resp Effort & Inspection: normal respiratory effort and able to speak in complete sentences Auscultation: clear to auscultation bilaterally Cardio Rate: regular rate Rhythm: regular rhythm Skin Other: Fragile skin in both in both forearms and legs. on her left she has areas of old sub cutaneous bleeding Neuro General: patient oriented x3 Extrem Other: Mild osteoarthritic changes of both hands with no active synovitis Normal range of motion both shoulders without pain Normal range of motion of both hips Results Reviewed Results Reviewed: Laboratory Tests Date of Service: 01/16/22 EXAMINATION: XR SHOULDER, RIGHT CLINICAL INFORMATION: Pain.? COMPARISON: None? TECHNIQUE: AP external rotation, Grashey and scapula Y views of the right shoulder are submitted. FINDINGS: None Mineralization are normal. The glenohumeral joint is intact. There is very mild osteoarthritic change of the right glenohumeral joint. The acromioclavicular and coracoclavicular intervals are normal. No fracture or dislocation is seen. There is no abnormal soft tissue calcifications or foreign body. No right pneumothorax is seen.? XR/XR shoulder RT min 2V IMPRESSION: ? 1. No fracture or dislocation is seen. ? 2. There is mild osteoarthritic change of the right glenohumeral joint. ? ? EXAMINATION: XR SHOULDER, LEFT ? CLINICAL INFORMATION: Pain.? ? COMPARISON: Radiographs dated 12/19/2008.? ? TECHNIQUE: AP external rotation, Grashey and scapula Y views of the left shoulder are submitted. ? FINDINGS: Bony alignment and mineralization are normal. The glenohumeral joint is intact. The acromioclavicular and coracoclavicular intervals are normal. There is mild osteoarthritic change of the glenohumeral and acromioclavicular joints. No fracture or dislocation is seen. There is no abnormal soft tissue calcification or foreign body. There is no left pneumothorax. ? IMPRESSION: ? 1. No fracture or dislocation is seen. ? 2. There is mild osteoarthritic change of the left glenohumeral and acromioclavicular joints.C-Reactive Protein 0.48 Assessment & Plan Assessment & Plan (1) Polymyalgia rheumatica: Comment: Prednisone 12/2019-10/2021. Restarted February 2022- 07/2022 Code(s): M35.3 - Polymyalgia rheumatica Plan: Patient without evidence of PMR symptoms on exam today. Off prednisone since 07/2022. At this time it appears patient's PMR is in remission. Follow-up in 6 months (2) Osteoporosis: Comment: Alendronate: November 2019- present Code(s): M81.0 - Age-related osteoporosis without current pathological fracture Qualifiers: Osteoporosis type: age-related Presence of current pathological fracture: without current pathological fracture Qualified Code(s): M81.0 - Age- related osteoporosis without current pathological fracture Plan: DEXA from October 2019 with osteopenia but high FRAX score in the hip. On alendronate weekly started November 2019. Repeat DEXA 10/2021 AP spine L1-L4, T-score -1.8, 3.2% increase from baseline; left femur neck T-score -2.2; left femur total T-score -1.4, 1.7% increase from baseline. Osteopenia based on the lowest T-score of -2.2. Repeat DEXA is stable. Will continue alendronate 70 mg once weekly for now. Repeat DEXA 10/2023 (3) Cyclic citrullinated peptide (CCP) antibody positive: Code(s): R79.89 - Other specified abnormal findings of blood chemistry Plan: Rheumatoid factor negative, anti CCP antibody positive. No features of inflammatory arthritis on exam. Can be related to her history of smoking Plan I spent 24 minutes reviewing patient's chart, evaluating patient, counseling patient and documenting in the chart Coding Level of Care Code Est Pt Level 4 (51933) Diagnoses Polymyalgia rheumatica M35.3 Age-related osteoporosis without current pathological fracture M81.0 Osteoporosis type: age-related Presence of current pathological fracture: without current pathological fracture Cyclic citrullinated peptide (CCP) antibody positive R79.89
[2023-03-31 10:33] VITALS: BP 106/62; PULSE 83; RESP 16; TEMP 37; O2SAT 96; BMI 20.9
== END 2023-03-31 10:56 | disposition home or self-care (01) ==
PROVIDERS: PCP Internal Medicine; Visit Provider Student in an Organized Health Care Education/Training Program
DX: M35.3 Polymyalgia rheumatica (principal); M81.0 Age-related osteoporosis without current pathological fracture; R79.89 Other specified abnormal findings of blood chemistry
CPT/HCPCS: 99214

== ENCOUNTER → 2023-03-31 10:31 | Outpatient (BNVA) | payer MEDICARE, SELFPAY | PROVIDERS: PCP Internal Medicine; Visit Provider Student in an Organized Health Care Education/Training Program | DX: M35.3 Polymyalgia rheumatica (principal); M81.0 Age-related osteoporosis without current pathological fracture; R79.89 Other specified abnormal findings of blood chemistry | CPT/HCPCS: 99212 ==

== ENCOUNTER 2023-04-23 10:04 | Outpatient (REF) | payer MEDICARE, SELFPAY | END 2023-04-23 10:05 | disposition home or self-care (01) | LOC: HO.HMGCLDS 10:04 | PROVIDERS: PCP Internal Medicine; Visit Provider Internal Medicine Medical Oncology | DX: C91.90 Lymphoid leukemia, unspecified not having achieved remission (principal) | CPT/HCPCS: 36415; 85007; 85025; 85027 ==

== ENCOUNTER 2023-07-01 11:02 | Outpatient (REF) | payer MEDICARE, SELFPAY ==
[2023-07-01 13:34] LABS: Basophils Absolute Auto 0.1 X10*3/uL (0.0-0.2); Basophils Percent Auto 0.5 % (0-2); Eosinophils Absolute Auto 0.3 X10*3/uL (0.0-0.4); Eosinophils Percent Auto 1.6 % (0-4); Hematocrit 42.7 % (37.0-47.0); Imm Gran Abs Auto 0.03 X10*3/uL (0.00-0.03); Imm Gran Pct Auto 0.1 % (0.0-0.4); Lymphocytes Percent Auto 76.3 % (20-40); MANUAL DIFF FLAG SCAN; Mean Corpuscular HGB Conc 32.8 g/dl (31.0-35.0); Mean Corpuscular Volume 91.4 fL (80.0-98.0); Mean Platelet Volume 10.7 fL (9.4-12.3); Neutrophils Absolute Auto 3.3 x10*3/uL (2.0-8.3); Neutrophils Percent Auto 16.5 % (45-73); Red Blood Count 4.67 X10*6/uL (4.20-5.50); Red Cell Distribution Width 13.7 % (11.0-16.0); SCAN SMEAR FLAG 1; White Blood Count 20.3 X10*3/uL (4.8-10.8)
[2023-07-01 13:41] LABS: Lymphocytes Absolute Auto 15.5 X10*3/uL (1.2-4.9); Platelet Count 68 X10*3/uL (160-400)
[2023-07-01 13:46] LABS: Alanine Aminotransferase 12 U/L (0-31); Albumin Level 4.2 g/dL (3.5-5.0); Alkaline Phosphatase 53 U/L (39-117); Anion Gap 9 (12-20); Aspartate Amino Transferase 21 U/L (5-31); Bilirubin Total 0.3 mg/dL (0.0-1.0); Blood Urea Nitrogen 10 mg/dL (9-16); Calcium 9.5 mg/dL (8.4-10.2); Carbon Dioxide 29 mmol/L (22-29); Chloride 105 mmol/L (96-108); Estimated Glomerular Filt Rate > 60; Glucose Random 67 mg/dL (60-115); Potassium 4.5 mmol/L (3.3-5.1); Sodium 138 mmol/L (135-145); Total Protein 7.3 g/dL (6.5-8.0)
[2023-07-01 15:49] LABS: SLIDE REVIEW VERIFIED
== END 2023-07-01 11:03 | disposition home or self-care (01) ==
LOC: HO.HMGCLDS 11:02
PROVIDERS: PCP Internal Medicine Medical Oncology; Visit Provider Internal Medicine Medical Oncology
DX: C91.90 Lymphoid leukemia, unspecified not having achieved remission (principal); D69.6 Thrombocytopenia, unspecified
CPT/HCPCS: 36415; 80053; 85025

== ENCOUNTER 2023-08-19 10:58 | Outpatient (REF) | payer MEDICARE, SELFPAY ==
[2023-08-19 13:07] LABS: Basophils Absolute Auto 0.1 X10*3/uL (0.0-0.2); Basophils Percent Auto 0.7 % (0-2); Eosinophils Absolute Auto 0.4 X10*3/uL (0.0-0.4); Eosinophils Percent Auto 1.8 % (0-4); Hematocrit 40.4 % (37.0-47.0); Hemoglobin 13.2 g/dl (12.0-16.0); Imm Gran Abs Auto 0.03 X10*3/uL (0.00-0.03); Imm Gran Pct Auto 0.1 % (0.0-0.4); Lymphocytes Percent Auto 79.5 % (20-40); MANUAL DIFF FLAG SCAN; Mean Corpuscular HGB Conc 32.7 g/dl (31.0-35.0); Mean Corpuscular Volume 91.8 fL (80.0-98.0); Mean Platelet Volume 12.3 fL (9.4-12.3); Monocytes Absolute Auto 0.9 X10*3/uL (0.1-1.2); Monocytes Percent Auto 4.4 % (2-11); Neutrophils Absolute Auto 2.9 x10*3/uL (2.0-8.3); Neutrophils Percent Auto 13.5 % (45-73); Red Cell Distribution Width 13.6 % (11.0-16.0); SCAN SMEAR FLAG 1; White Blood Count 21.2 X10*3/uL (4.8-10.8)
[2023-08-19 13:18] LABS: Lymphocytes Absolute Auto 16.9 X10*3/uL (1.2-4.9); Platelet Count 32 X10*3/uL (160-400)
[2023-08-19 13:46] LABS: SLIDE REVIEW VERIFIED
== END 2023-08-19 10:59 | disposition home or self-care (01) ==
LOC: HO.HMGCLDS 10:58
PROVIDERS: PCP Internal Medicine; Visit Provider Internal Medicine Medical Oncology
DX: C91.90 Lymphoid leukemia, unspecified not having achieved remission (principal)
CPT/HCPCS: 36415; 85025

== ENCOUNTER 2023-09-02 11:02 | Outpatient (REF) | payer MEDICARE, SELFPAY ==
[2023-09-02 13:30] LABS: Basophils Absolute Auto 0.1 X10*3/uL (0.0-0.2); Basophils Percent Auto 0.5 % (0-2); Eosinophils Absolute Auto 0.2 X10*3/uL (0.0-0.4); Eosinophils Percent Auto 0.8 % (0-4); Hematocrit 41.7 % (37.0-47.0); Hemoglobin 13.4 g/dl (12.0-16.0); Imm Gran Abs Auto 0.07 X10*3/uL (0.00-0.03); Imm Gran Pct Auto 0.3 % (0.0-0.4); Lymphocytes Percent Auto 76.2 % (20-40); MANUAL DIFF FLAG SCAN; Mean Corpuscular HGB Conc 32.1 g/dl (31.0-35.0); Mean Corpuscular Hemoglobin 29.9 pg (27.0-33.0); Mean Corpuscular Volume 93.1 fL (80.0-98.0); Mean Platelet Volume 11.3 fL (9.4-12.3); Monocytes Absolute Auto 0.8 X10*3/uL (0.1-1.2); Monocytes Percent Auto 3.8 % (2-11); Neutrophils Absolute Auto 3.9 x10*3/uL (2.0-8.3); Neutrophils Percent Auto 18.4 % (45-73); Platelet Count 48 X10*3/uL (160-400); Red Blood Count 4.48 X10*6/uL (4.20-5.50); Red Cell Distribution Width 13.9 % (11.0-16.0); SCAN SMEAR FLAG 1
[2023-09-02 13:50] LABS: SLIDE REVIEW VERIFIED
== END 2023-09-02 11:03 | disposition home or self-care (01) ==
LOC: HO.HMGCLDS 11:02
PROVIDERS: PCP Internal Medicine; Visit Provider Internal Medicine Medical Oncology
DX: C91.90 Lymphoid leukemia, unspecified not having achieved remission (principal)
CPT/HCPCS: 36415; 85025

== ENCOUNTER → 2023-09-18 11:20 | Outpatient (BNV) | payer MEDICARE, SELFPAY | PROVIDERS: PCP Internal Medicine; Visit Provider Internal Medicine Medical Oncology | DX: C91.10 Chronic lymphocytic leukemia of B-cell type not having achieved remission (principal); D69.6 Thrombocytopenia, unspecified | CPT/HCPCS: 99204; 99213; 99214 ==

== ENCOUNTER 2023-09-21 12:46 | Outpatient (REF) | payer MEDICARE, SELFPAY ==
--- NOTE | ~2023-09-21 | XR_ITS ---
EXAMINATION: XR CHEST CLINICAL INFORMATION: Cough and shortness of breath. COMPARISON: 12/22/2022 TECHNIQUE: 2 views of the chest were obtained. FINDINGS: The lungs are well expanded. No focal consolidation. No pleural effusion. Cardiac silhouette is within normal limits. XR/XR chest 2V IMPRESSION: No acute abnormality.
== END 2023-09-21 12:47 | disposition home or self-care (01) ==
LOC: HO.HMGCX 12:46
PROVIDERS: PCP Internal Medicine; Visit Provider Internal Medicine
DX: R05.9 Cough, unspecified (principal); R06.02 Shortness of breath
CPT/HCPCS: 71046

== ENCOUNTER 2023-09-30 10:12 | Outpatient (AMB) | payer MEDICARE, SELFPAY ==
[2023-09-30 10:15] VITALS: BP 122/60; PULSE 75; O2SAT 91; BMI 20.9
--- NOTE | 2023-09-30 10:15 | A.OFFVIS_ITS ---
Vital Signs 09/30/23 10:15 Height 5 ft 3 in Weight 118 lb 2.684 oz BMI 20.9 BP 122/60 Blood Pressure Location Rt brachial Position Sitting Pulse 75 Pulse Source Pulse Oximeter Pulse Oximetry (%) 91 L Oxygen Delivery Method Room Air Intake Visit Reasons: PMR Intake Note: Patient last seen 03/31/23, presents today for PMR follow up. On prednisone taper, currently at 20mg daily. S/P rituxin infusion- did not have any bad reactions. 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 Patient had been off prednisone for her PMR since 07/2022. 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 She was started on prednisone with improvement. 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 She received 1 dose so far and it was uneventful. Patient is doing well overall. No new symptoms. No recent falls. Compliant with alendronate [facility] Medical History Current smoker Osteoporosis Cyclic citrullinated peptide (CCP) antibody positive Polymyalgia rheumatica Surgical History History of tonsillectomy and adenoidectomy Family History Father Prostate cancer Paternal Aunt Liver cancer Paternal Aunt Brain cancer Social History Household Members: Spouse Alcohol intake: never Patient Tobacco Use Status: Current someday Tobacco user Tobacco use type: Cigarette Years Smoked: (onset 16yo, 1/2ppd x 56yrs - 28pyh, quit for 5yrs, now at 1-2 cig/day) e-Cigarette/Vaping Use: Never Used service: No Current occupational status: retired Review of Systems [facility] Denies arthralgias, Denies joint swelling and Denies stiffness Physical Exam Vital Signs: Last Vital Signs Pulse 75 09/30/23 10:15 BP 122/60 09/30/23 10:15 Pulse Ox 91 L 09/30/23 10:15 Oxygen Delivery Method Room Air 09/30/23 10:15 BMI result Body Mass Index 20.9 Const General: cooperative, healthy appearing and comfortable Nutritional Appearance: average body habitus Orientation/consciousness: patient oriented x3 Limitations: no limitations HEENT Head: Yes normocephalic and Yes atraumatic Mouth: moist mucous membranes Resp Effort & Inspection: normal respiratory effort and able to speak in complete sentences Cardio Rate: regular rate Rhythm: regular rhythm Skin Other: Fragile skin in both in both forearms and legs. on her left she has areas of old sub cutaneous bleeding Neuro General: patient oriented x3 Extrem Other: Mild osteoarthritic changes of both hands with no active synovitis Normal range of motion both shoulders without pain Normal range of motion of both hips Results Reviewed Results Reviewed: Laboratory Tests Date of Service: 01/16/22 EXAMINATION: XR SHOULDER, RIGHT CLINICAL INFORMATION: Pain.? COMPARISON: None? TECHNIQUE: AP external rotation, Grashey and scapula Y views of the right shoulder are submitted. FINDINGS: None Mineralization are normal. The glenohumeral joint is intact. There is very mild osteoarthritic change of the right glenohumeral joint. The acromioclavicular and coracoclavicular intervals are normal. No fracture or dislocation is seen. There is no abnormal soft tissue calcifications or foreign body. No right pneumothorax is seen.? XR/XR shoulder RT min 2V IMPRESSION: ? 1. No fracture or dislocation is seen. ? 2. There is mild osteoarthritic change of the right glenohumeral joint. ? ? EXAMINATION: XR SHOULDER, LEFT ? CLINICAL INFORMATION: Pain.? ? COMPARISON: Radiographs dated 12/19/2008.? ? TECHNIQUE: AP external rotation, Grashey and scapula Y views of the left shoulder are submitted. ? FINDINGS: Bony alignment and mineralization are normal. The glenohumeral joint is intact. The acromioclavicular and coracoclavicular intervals are normal. There is mild osteoarthritic change of the glenohumeral and acromioclavicular joints. No fracture or dislocation is seen. There is no abnormal soft tissue calcification or foreign body. There is no left pneumothorax. ? IMPRESSION: ? 1. No fracture or dislocation is seen. ? 2. There is mild osteoarthritic change of the left glenohumeral and acromioclavicular joints.C-Reactive Protein 0.48 Assessment & Plan Assessment & Plan (1) Polymyalgia rheumatica: Comment: Prednisone 12/2019-10/2021. Restarted February 2022- 07/2022 Code(s): M35.3 - Polymyalgia rheumatica Category: Medical Plan: Patient has history of chronic lymphocytic leukemia and recently developed ITP which is treated with prednisone. She is currently on 20 mg daily prescribed by heme/Onc. She received 1 of for weekly doses of rituximab. She has had no recurrence of PMR symptoms. Prednisone taper per heme/Onc (2) Osteoporosis: Comment: Alendronate: November 2019- present Code(s): M81.0 - Age-related osteoporosis without current pathological fracture Category: Medical Qualifiers: Osteoporosis type: age-related Presence of current pathological fracture: without current pathological fracture Qualified Code(s): M81.0 - Age- related osteoporosis without current pathological fracture Plan: DEXA from October 2019 with osteopenia but high FRAX score in the hip. On alendronate weekly started November 2019. Repeat DEXA 10/2021 AP spine L1-L4, T-score -1.8, 3.2% increase from baseline; left femur neck T-score -2.2; left femur total T-score -1.4, 1.7% increase from baseline. Osteopenia based on the lowest T-score of -2.2. Repeat DEXA is stable. Will continue alendronate 70 mg once weekly for now. Repeat DEXA 03/2024 (3) Cyclic citrullinated peptide (CCP) antibody positive: Code(s): R79.89 - Other specified abnormal findings of blood chemistry Category: Medical Plan: Rheumatoid factor negative, anti CCP antibody positive. Perhaps patient has seropositive RA that presented like PMR. She has no inflammatory arthritis on exam today Plan I spent 24 minutes reviewing patient's chart, evaluating patient, ordering diagnostic workup, counseling patient and documenting in the chart Orders: Orders XR DEXA axial skeleton 03/21/24 M81.0 - Age-related osteoporosis without current pathological fracture Coding Level of Care Code Est Pt Level 4 (71228) Diagnoses Polymyalgia rheumatica M35.3 Age-related osteoporosis without current pathological fracture M81.0 Osteoporosis type: age-related Presence of current pathological fracture: without current pathological fracture Cyclic citrullinated peptide (CCP) antibody positive R79.89
== END 2023-09-30 10:28 | disposition home or self-care (01) ==
PROVIDERS: PCP Internal Medicine; Visit Provider Student in an Organized Health Care Education/Training Program
DX: M35.3 Polymyalgia rheumatica (principal); M81.0 Age-related osteoporosis without current pathological fracture; R79.89 Other specified abnormal findings of blood chemistry
CPT/HCPCS: 99214

== ENCOUNTER → 2023-09-30 10:12 | Outpatient (BNVA) | payer MEDICARE, SELFPAY | PROVIDERS: PCP Internal Medicine; Visit Provider Student in an Organized Health Care Education/Training Program | DX: M35.3 Polymyalgia rheumatica (principal); M81.0 Age-related osteoporosis without current pathological fracture; R79.89 Other specified abnormal findings of blood chemistry; Z85.6 Personal history of leukemia; Z79.52 Long term (current) use of systemic steroids | CPT/HCPCS: 99212 ==

== ENCOUNTER 2023-11-14 09:49 | Outpatient (REF) | payer MEDICARE, SELFPAY ==
[2023-11-14 11:25] LABS: MANUAL DIFF FLAG NO
[2023-11-14 11:31] LABS: Basophils Absolute Auto 0.1 X10*3/uL (0.0-0.2); Basophils Percent Auto 1.1 % (0-2); Eosinophils Absolute Auto 0.2 X10*3/uL (0.0-0.4); Eosinophils Percent Auto 2.9 % (0-4); Hematocrit 43.9 % (37.0-47.0); Hemoglobin 14.5 g/dl (12.0-16.0); Imm Gran Abs Auto 0.05 X10*3/uL (0.00-0.03); Imm Gran Pct Auto 0.7 % (0.0-0.4); Lymphocytes Absolute Auto 2.7 X10*3/uL (1.2-4.9); Mean Corpuscular Hemoglobin 30.1 pg (27.0-33.0); Mean Corpuscular Volume 91.3 fL (80.0-98.0); Mean Platelet Volume 10.3 fL (9.4-12.3); Monocytes Absolute Auto 0.7 X10*3/uL (0.1-1.2); Monocytes Percent Auto 9.9 % (2-11); Neutrophils Absolute Auto 3.5 x10*3/uL (2.0-8.3); Neutrophils Percent Auto 48.4 % (45-73); Platelet Count 120 X10*3/uL (160-400); Red Blood Count 4.81 X10*6/uL (4.20-5.50); Red Cell Distribution Width 14.3 % (11.0-16.0); White Blood Count 7.2 X10*3/uL (4.8-10.8)
[2023-11-14 12:00] LABS: Alanine Aminotransferase 14 U/L (0-31); Albumin Level 4.2 g/dL (3.5-5.0); Alkaline Phosphatase 60 U/L (39-117); Anion Gap 13 (12-20); Aspartate Amino Transferase 23 U/L (5-31); Bilirubin Total 0.5 mg/dL (0.0-1.0); Blood Urea Nitrogen 8 mg/dL (9-16); Calcium 9.6 mg/dL (8.4-10.2); Carbon Dioxide 25 mmol/L (22-29); Chloride 104 mmol/L (96-108); Cholesterol 206 mg/dL (<200); Estimated Glomerular Filt Rate > 60; Glucose Fasting 105 mg/dL (60-99); HDL Cholesterol 66 mg/dL (>40); LDL Cholesterol Calculated 121 mg/dL (<100); Potassium 4.4 mmol/L (3.3-5.1); Sodium 138 mmol/L (135-145); Total Protein 7.1 g/dL (6.5-8.0); Triglycerides 99 mg/dL (<150)
== END 2023-11-14 09:50 | disposition home or self-care (01) ==
LOC: HO.HMGCLDS 09:49
PROVIDERS: PCP Internal Medicine; Visit Provider Internal Medicine
DX: R53.83 Other fatigue (principal); E78.00 Pure hypercholesterolemia, unspecified
CPT/HCPCS: 36415; 80053; 80061; 85025

== ENCOUNTER 2023-11-23 10:22 | Outpatient (REF) | payer MEDICARE, SELFPAY ==
--- NOTE | ~2023-11-23 | MM_ITS ---
EXAMINATION: MM SCREENING DIGITAL BREAST TOMOSYNTHESIS, BILATERAL CLINICAL INFORMATION: Screening. Asymptomatic. COMPARISON: Mammography: This study is compared with prior exams dating back to 2019. TECHNIQUE: Digital breast tomosynthesis is performed in both the craniocaudal and mediolateral oblique views along with computer-aided detection (CAD). Synthesized 2D images are generated from the tomosynthesis. FINDINGS: The breasts are almost entirely fatty (ACR BI-RADS breast composition Category a). There are no significant masses, abnormal calcifications, or other abnormalities. MM/MM tomosynthesis screening BI IMPRESSION: No mammographic evidence of malignancy. ASSESSMENT: BI-RADS BI-RADS 1 - Negative RECOMMENDATION: Routine annual mammography screening. 1 year F/U This examination should not preclude the clinical evaluation of a suspicious palpable abnormality. This patient's information was entered into a reminder system with a target due date for their next mammogram. Electronically signed by: Hailey Suarez MD 12/22/2023 06:35 AM EDT
== END 2023-11-23 10:23 | disposition home or self-care (01) ==
LOC: HO.MAMMO 10:22
PROVIDERS: PCP Internal Medicine; Visit Provider Internal Medicine
DX: Z12.31 Encounter for screening mammogram for malignant neoplasm of breast (principal)
CPT/HCPCS: 77063; 77067

== ENCOUNTER → 2023-11-23 10:30 | Outpatient (BNV) | payer MEDICARE, SELFPAY | PROVIDERS: PCP Internal Medicine; Visit Provider Radiology Diagnostic Radiology | DX: Z12.31 Encounter for screening mammogram for malignant neoplasm of breast (principal) | CPT/HCPCS: 77063; 77067 ==

== ENCOUNTER 2024-03-23 13:11 | Outpatient (REF) | payer MEDICARE, SELFPAY ==
--- NOTE | ~2024-03-23 | MM_ITS ---
EXAMINATION: BONE DENSITOMETRY CLINICAL INDICATION: Age-related osteoporosis without current pathological fracture. COMPARISON: Previous BD dated 11/12/2021 and baseline BD dated 11/09/2019. TECHNIQUE: Using a [employer] DXA System (software version: 13.1) manufactured by [employer], dual-energy x-ray absorptiometry was performed of the lumbar spine and left hip. The images are of good technical quality. Summary results are attached. FINDINGS: LEFT FEMUR, NECK: Current: BMD 0.724 g/cm2, Z-score 0.2, T-score -2.3, osteopenia. Prior: BMD 0.731 g/cm2. Baseline: BMD 0.757 g/cm2. LEFT FEMUR, TOTAL: Current: BMD 0.769 g/cm2, Z-score 0.4, T-score -1.9, osteopenia, 7.7% decrease from previous, 6.1% decrease from baseline (<5% change is not significant). Prior: BMD 0.833 g/cm2. Baseline: BMD 0.819 g/cm2. AP SPINE L1-L4: Current: BMD 0.948 g/cm2, Z-score 0.3, T-score -1.9, osteopenia, 1.5% decrease from previous, 1.7% increase from baseline (<5% change is not significant). Prior: BMD 0.962 g/cm2. Baseline: BMD 0.932 g/cm2. IDENTIFIED RISK FACTORS: Menopause, history of fracture (adult), glucocorticoids (chronic). HISTORY OF FRACTURE: Forearm. MEDICATIONS: Calcium or multivitamin. Vitamin D, bisphosphonates. MM/XR DEXA axial skeleton IMPRESSION: 1. DIAGNOSIS: Osteopenia based on the lowest T-score value of -2.3 in the femoral neck applying World Health Organization criteria. 2. 10-YEAR FRACTURE RISK PREDICTION, FRAX: Not performed in this patient on estrogen or bone building treatments. 3. Treatment Recommendations: NOF guidelines recommend consideration for treatment in postmenopausal women and men age 50 and older presenting with the following: -A hip or vertebral (clinical or morphometric) fracture. -T-score less than or equal to -2.5 at the femoral neck or spine after appropriate evaluation to exclude secondary causes. -Low bone mass at the hip or spine and a 10-year fracture probability by FRAX of greater than or equal to 3% for hip fracture or greater than or equal to 20% for major osteoporotic fracture based on the [place] adapted WHO algorithm. 4. Other Recommendations: All treatment decisions require clinical judgment and consideration of individual patient factors, including patient preferences, comorbidities, previous drug use, risk factors not captured in the FRAX model (e.g. frailty, falls, vitamin D deficiency, increased bone turnover, interval significant decline in bone density) and possible under or overestimation of fracture risk by FRAX. Additional medical evaluation for secondary cause of low bone mineral density may be appropriate. FUTURE SCAN RECOMMENDATION: People with diagnosed cases of osteoporosis or at high risk for fracture should have regular bone mineral density tests. For patients eligible for Medicare, routine testing is allowed once every 2 years. The testing frequency can be increased to one year for patients who have rapidly progressing disease, those who are receiving or discontinuing medical therapy to restore bone mass, or have additional risk factors. Electronically signed by: Colleen Orellana MD 03/23/2024 06:04 PM [facility]
== END 2024-03-23 13:12 | disposition home or self-care (01) ==
LOC: HO.MAMMO 13:11
PROVIDERS: PCP Internal Medicine; Visit Provider Student in an Organized Health Care Education/Training Program
DX: M81.0 Age-related osteoporosis without current pathological fracture (principal)
CPT/HCPCS: 77080

== ENCOUNTER 2024-03-31 11:04 | Outpatient (AMB) | payer MEDICARE, SELFPAY ==
--- NOTE | 2024-03-31 11:09 | A.OFFVIS_ITS ---
Vital Signs 03/31/24 11:12 Height 5 ft 3 in Weight 117 lb 8.102 oz BMI 20.8 BP 112/60 Blood Pressure Location Rt brachial Position Sitting Pulse 76 Pulse Source Pulse Oximeter Pulse Oximetry (%) 98 Oxygen Delivery Method Room Air Intake Visit Reasons: PMR/osteoporosis Intake Note: Patient presents for PMR/Osteoporosis. Allergies codeine Adverse Reaction (Intermediate, Verified 03/31/24 11:12) nausea Medication List - Last Reconciled 03/31/24 by Nadya Saxena MD albuterol sulfate 90 mcg/actuation 1 inh inhalation QID PRN alendronate 70 mg PO QWEEK cholecalciferol (vitamin D3) 50 mcg PO DAILY cyclosporine 0.05% (Restasis MultiDose) 1 drp ophthalmic (eye) Q12H multivitamin 1 tab PO DAILY omega-3 fatty acids 1,000 mg PO DAILY HPI Comments Details: 78yoF with a PMH of Chronic Lymphocytic Leukemia ITP , PMR , osteopenia and osteoarthritis presents for follow-up. Patient had been off prednisone for her PMR since 07/2022. Patient is doing well overall. No new symptoms. No recent falls. Compliant with alendronate and vitamin PFSH Medical History Current smoker Osteoporosis Cyclic citrullinated peptide (CCP) antibody positive Polymyalgia rheumatica Surgical History History of tonsillectomy and adenoidectomy Family History Father Prostate cancer Paternal Aunt Liver cancer Paternal Aunt Brain cancer Social History Household Members: Spouse Alcohol intake: never Patient Tobacco Use Status: Current someday Tobacco user Tobacco use type: Cigarette Years Smoked: (onset 16yo, 1/2ppd x 56yrs - 28pyh, quit for 5yrs, now at 1-2 cig/day) e-Cigarette/Vaping Use: Never Used service: No Current occupational status: retired Review of Systems [employer] Denies arthralgias, Denies joint swelling and Denies stiffness Physical Exam Vital Signs: Last Vital Signs Pulse 76 03/31/24 11:12 BP 112/60 03/31/24 11:12 Pulse Ox 98 03/31/24 11:12 Oxygen Delivery Method Room Air 03/31/24 11:12 BMI result Body Mass Index 20.8 Const General: cooperative, healthy appearing and comfortable Nutritional Appearance: average body habitus Orientation/consciousness: patient oriented x3 Limitations: no limitations HEENT Head: Yes normocephalic and Yes atraumatic Mouth: moist mucous membranes Resp Effort & Inspection: normal respiratory effort and able to speak in complete sentences Cardio Rate: regular rate Rhythm: regular rhythm Skin Other: Fragile skin in both in both forearms and legs. Neuro General: patient oriented x3 Extrem Other: Mild osteoarthritic changes of both hands with no active synovitis Normal range of motion both shoulders without pain Normal range of motion of both hips Assessment & Plan Assessment & Plan (1) Polymyalgia rheumatica: Comment: Prednisone 12/2019-10/2021. Restarted February 2022- 07/2022 Code(s): M35.3 - Polymyalgia rheumatica Category: Medical Plan: 78-year-old female with PMR returns for follow-up, she was diagnosed with ITP back in 09/2023 and received 1 round of rituximab with improvement. She has been off prednisone for PMR since 07/2022. There is no recurrence of PMR symptoms. Re-evaluate in 6 months (2) Osteoporosis: Comment: Alendronate: November 2019- present Code(s): M81.0 - Age-related osteoporosis without current pathological fracture Category: Medical Qualifiers: Osteoporosis type: age-related Presence of current pathological fracture: without current pathological fracture Qualified Code(s): M81.0 - Age- related osteoporosis without current pathological fracture Plan: DEXA scan on fear shows slightly worsening DEXA but it it was still within the osteopenic range. I do not think we need to make any changes at this point, continue with alendronate 70 mg weekly and vitamin-D 2000 units daily Repeat DEXA in 2 years (3) Cyclic citrullinated peptide (CCP) antibody positive: Code(s): R79.89 - Other specified abnormal findings of blood chemistry Category: Medical Plan: Rheumatoid factor negative, anti CCP antibody positive. Perhaps patient has seropositive RA that presented like PMR. She has no inflammatory arthritis on exam today Plan I spent 24 minutes reviewing patient's chart, evaluating patient, counseling patient and documenting in the chart Coding Level of Care Code Est Pt Level 3 (90625) Diagnoses Polymyalgia rheumatica M35.3 Age-related osteoporosis without current pathological fracture M81.0 Osteoporosis type: age-related Presence of current pathological fracture: without current pathological fracture Cyclic citrullinated peptide (CCP) antibody positive R79.89
[2024-03-31 11:12] VITALS: BP 112/60; PULSE 76; O2SAT 98; BMI 20.8
== END 2024-03-31 11:30 | disposition home or self-care (01) ==
PROVIDERS: PCP Internal Medicine; Visit Provider Student in an Organized Health Care Education/Training Program
DX: M35.3 Polymyalgia rheumatica (principal); M81.0 Age-related osteoporosis without current pathological fracture; R79.89 Other specified abnormal findings of blood chemistry
CPT/HCPCS: 99213

== ENCOUNTER → 2024-03-31 11:04 | Outpatient (BNVA) | payer MEDICARE, SELFPAY | PROVIDERS: PCP Internal Medicine; Visit Provider Student in an Organized Health Care Education/Training Program | DX: M35.3 Polymyalgia rheumatica (principal); M81.0 Age-related osteoporosis without current pathological fracture; R79.89 Other specified abnormal findings of blood chemistry | CPT/HCPCS: 99212 ==

== ENCOUNTER 2024-05-03 12:14 | Outpatient (REF) | payer MEDICARE, SELFPAY ==
[2024-05-03 16:57] LABS: Influenza A PCR NEGATIVE (Negative); Influenza B PCR NEGATIVE (Negative); Resp Syncy Virus RNA Qual PCR NEGATIVE (Negative); SARS COV2 PCR INHOUSE NEGATIVE (Negative)
== END 2024-05-03 12:15 | disposition home or self-care (01) ==
LOC: HO.LNP 12:14
PROVIDERS: PCP Internal Medicine; Visit Provider Physician Assistant
DX: R05.9 Cough, unspecified (principal); J06.9 Acute upper respiratory infection, unspecified; Z20.828 Contact with and (suspected) exposure to other viral communicable diseases
CPT/HCPCS: 0241U; 99212

== ENCOUNTER 2024-05-03 12:14 | Outpatient (AMB) | payer MEDICARE, SELFPAY ==
[2024-05-03 12:28] VITALS: BP 120/70; PULSE 84; TEMP 37.2; O2SAT 97; BMI 21.6
--- NOTE | 2024-05-03 12:28 | MHC.OFFWIV ---
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 Pt c/o cough. Pt states that her is currently in a hospital for RSV and pneumonia. Patient Tobacco Use Status: Current someday Tobacco user Allergies codeine Adverse Reaction (Intermediate, Verified 05/03/24 12:31) nausea HPI HPI Comments History of Present Illness Details This is an 78-year-old female with a past medical history of polymyalgia rheumatica and CLL presenting requesting testing for RSV. The patient's is currently hospitalized at [facility] with RSV and pneumonia. It is not known if the pneumonia is bacterial or viral in nature. Patient states due to her CLL she is concerned that she may have contracted RSV from her . Patient states that she has little to no symptoms and reports having a minimal cough only. [facility] Medical History Current smoker Osteoporosis Cyclic citrullinated peptide (CCP) antibody positive Polymyalgia rheumatica Surgical History History of tonsillectomy and adenoidectomy Family History Father Prostate cancer Paternal Aunt Liver cancer Paternal Aunt Brain cancer Social History Household Members: Spouse Alcohol intake: never Patient Tobacco Use Status: Current someday Tobacco user Tobacco use type: Cigarette Years Smoked: (onset 16yo, 1/2ppd x 56yrs - 28pyh, quit for 5yrs, now at 1-2 cig/day) e-Cigarette/Vaping Use: Never Used service: No Current occupational status: retired Review of Systems Const All systems reviewed & are unremarkable except as noted in HPI and below Denies fatigue, Denies fever(s) and Denies malaise Eyes Reports no additional complaints ENT Reports no additional complaints Card Reports no additional complaints and Denies dyspnea Resp Denies chest congestion, Reports cough ( minimal ) and Denies dyspnea GI Reports no additional complaints Musc Reports no additional complaints Skin/Breast Reports system reviewed and no additional complaints, except as documented Neuro Reports no additional complaints Psych Reports no additional complaints Endo Reports no additional complaints and Denies fatigue Physical Exam Vital Signs: Last Vital Signs Temp 99.0 F 05/03/24 12:28 Pulse 84 05/03/24 12:28 BP 120/70 05/03/24 12:28 Pulse Ox 97 05/03/24 12:28 Oxygen Delivery Method Room Air 05/03/24 12:28 BMI result Body Mass Index 21.6 Const General: cooperative, healthy appearing, comfortable, no acute distress, well developed, alert, awake and Physically active Nutritional Appearance: average body habitus Orientation/consciousness: patient oriented x3 Limitations: no limitations HEENT Head: Yes normal to inspection and Yes atraumatic Ears: hearing grossly normal bilaterally, external ears normal, TM's normal bilaterally and EAC's normal General nose exam: Normal external nose present Face and sinus: Yes normal facial exam Mouth: Normal oral and palatal mucosa present Throat: Yes posterior oropharynx normal and No postnasal drainage Eyes General: appearance normal, both eyes and all related structures Neck Lymphatic: no lymphadenopathy noted Resp Effort & Inspection: normal respiratory effort, no audible wheezes, no cough and no respiratory distress Auscultation: clear to auscultation bilaterally Cardio Rate: regular rate Rhythm: regular rhythm Neuro General: patient oriented x3 Psych Appearance: grossly normal Mental Status: mental status grossly normal Insight: Good insight present (Psych) Judgement: Good judgement present (Psych) Assessment & Plan Assessment & Plan (1) RSV exposure: Comment: Patient is afebrile and in no acute distress. SARS panel is ordered and results are pending. Code(s): Z20.828 - Contact with and (suspected) exposure to other viral communicable diseases Plan: No further recommendations at this time. Patient will await results of SARS panel. Orders: Orders SARS-CoV2/FLU/RSV Today J06.9 - Acute upper respiratory infection, unspecified Coding Level of Care Code Est Pt Level 3 (40472) Diagnoses RSV exposure Z20.828 Time Spent (min) 20
== END 2024-05-03 13:20 | disposition home or self-care (01) ==
PROVIDERS: PCP Internal Medicine; Visit Provider Physician Assistant
DX: Z20.828 Contact with and (suspected) exposure to other viral communicable diseases (principal)

== ENCOUNTER 2024-08-29 10:57 | Outpatient (AMB) | payer MEDICARE, SELFPAY ==
[2024-08-29 10:58] VITALS: BP 128/58; PULSE 68; RESP 14; TEMP 36.6; O2SAT 95; BMI 21.3
--- NOTE | 2024-08-29 10:58 | A.OFFPC_ITS ---
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 Accompanied by: Self / Same As Patient Allergies codeine Adverse Reaction (Intermediate, Verified 08/29/24 11:44) nausea Medication List - Last Reconciled 08/29/24 by Macarena Licea PA-C albuterol sulfate 90 mcg/actuation 1 inh inhalation QID PRN alendronate 70 mg PO QWEEK cholecalciferol (vitamin D3) 50 mcg PO DAILY cyclosporine 0.05% (Restasis MultiDose) 1 drp ophthalmic (eye) Q12H multivitamin 1 tab PO DAILY omega-3 fatty acids 1,000 mg PO DAILY Tobacco use date assessed: 08/29/24 Fall risk assessment: No Falls in past year Last assessed Fall Risk: 08/29/24 Dental Screening Dental Screen Date: 08/29/24 Did you have a dental visit in the last 12 months?: Yes Did you have a dental problem in the last 6 months where you did not have access to dental care?: No Was dental information given to patient?: Patient has dentist (patient has dentures) HPI follow up HPI Details The patient is an 79-year-old female presenting to [facility] care with a new primary care provider and review of chronic conditions. She was diagnosed with chronic myeloid leukemia (CML) after prolonged fatigue and low platelet counts, treated successfully resulting in a significant increase in platelet levels. Currently, in remission, she regularly undergoes blood work. She also manages osteoporosis and polymyalgia rheumatica, the latter under rheumatological care, along with asthma management requiring Albuterol use. In terms of recent activity, she completed mammogram and bone density imaging recently, scheduled for regular follow-ups. There are no recent acute symptoms or complications reported; she denies falls, cardiopulmonary distress, abnormal weight fluctuations, gastrointestinal bleeding, or edema. Her social background involves strong family ties, having relocated back to [place] from [place] for closer familial contact, and her is adjusting to the climate change. Social History - Family Status: Resides in [place] to be closer to family, including children and grandchildren. Her granddaughter lives with her in a basement apartment. - Relocation History: Lived in [place] f or 22 years before returning to [place] to be near family. - Functional Status: Very active sociall y; participates in family events and holidays. - Exercise/Nutritional Status: Not expli citly discussed, but general wellness implied. - Social Connections: Maintains close [facility] ties and engages actively with local community and family activities. [facility] Medical History (Updated 08/29/24 @ 11:56 by Macarena Licea PA-C) Asthma Establishing care with new doctor, encounter for History of mammogram (~11/23/23) Current smoker Osteoporosis Cyclic citrullinated peptide (CCP) antibody positive Polymyalgia rheumatica Surgical History History of tonsillectomy and adenoidectomy Family History Father Prostate cancer Paternal Aunt Liver cancer Paternal Aunt Brain cancer Social History Household Members: Spouse Housing: House Alcohol intake: current Alcohol intake frequency: does not drink Patient Tobacco Use Status: Former Tobacco user Tobacco use type: Cigarette service: No Current occupational status: retired Cognitive needs: No Hearing needs: No Vision needs: Yes (rx glasses) Questionnaire PHQ-9 Over the last 2 weeks, how often have you been bothered by any of the following problems? 1. Little interest or pleasure in doing things: not at all 2. Feeling down, depressed, or hopeless: not at all 3. Trouble falling or staying asleep, or sleeping too much: not at all 4. Feeling tired or having little energy: not at all 5. Poor appetite or overeating: not at all 6. Feeling bad about yourself - or that you are a failure or have let yourself or your family down: not at all 7. Trouble concentrating on things, such as reading the newspaper or watching television: not at all 8. Moving or speaking so slowly that other people could have noticed. Or the opposite - being so fidgety or restless that you have been moving around a lot more than usual: not at all 9. Thoughts that you would be better off or of hurting yourself in some way : not at all Total score: 0 Depression Screening Interpretation: Negative Depression Screening Done: Yes 01378 - PHQ-9 Billing: Yes Source: Developed by Drs. Gerald Roper, Isa Fontanez, Saji Alejandre and colleagues, with an educational veronica from [employer]. Thrive Questionnaire Date Thrive assessed: 08/29/24 I am a: Patient What is your living situation today?: I have a steady place to live Within the past 12 months, did the food you bought not last and you didn't have the money to get more?: Never true Within the past 12 months, did you worry whether your food would run out before you got money to buy more?: Never true Do you have trouble paying for medicines?: No Do you have trouble getting transportation to medical appointments?: No Do you have trouble paying your heating and electricity bill?: No Do you have trouble taking care of your child, family member or friend?: No Do you have trouble with day-to-day activities such as bathing, preparing meals, shopping, managing finances, etc.?: No Are you currently unemployed and looking for a job?: No Are you interested in more education?: No Please select the resources that you would like help with: None THRIVE Score: 0 AUDIT C Alcohol Use Questionnaire (AUDIT-C) 1. How often do you have a drink containing alcohol?: Never 3. How often do you have six or more drinks on one occasion?: Never Total Score: 0 Score Reviewed/Action Taken: No ZAKIYA-7 AMB Questionnaire ZAKIYA-7 Date ZAKIYA - 7 assessed: 08/29/24 Feeling nervous, anxious, or on edge: 0 = Not at all Not being able to stop or control worryin = Not at all Worrying too much about different things: 0 = Not at all Trouble relaxin = Not at all Being so restless that it is hard to sit still: 0 = Not at all Becoming easily annoyed or irritable: 0 = Not at all Feeling afraid as if something awful might happen: 0 = Not at all Total ZAKIYA-7 score (0-4 normal; 5-9 mild; 10-14 moderate; 15-21 severe): 0 Source: Developed by Isa Bhatti Kurt Kroenke and colleagues, with an educational veronica from [employer]. ZAKIYA-7 Assessment Billing ZAKIYA-7 Assessment Tool: ZAKIYA-7 Assessment 40924 Review of Systems Const Details: - Hematologic: Reports chronic fatigue associated with history of chronic myeloid leukemia; denies current symptoms. - Musculoskeletal: History of polymyalgia rheumatica; denies acute joint pain. - Respiratory: Reports use of Albuterol for asthma; denies shortness of breath or wheezing. - Gastrointestinal: Denies black or bloody stools. - General: Denies recent falls, unintentional weight changes, chest pain, or edema. Physical exam (Primary Care) Vital Signs: Last Vital Signs Temp 97.9 F 08/29/24 10:58 Pulse 68 08/29/24 10:58 Resp 14 08/29/24 10:58 BP 128/58 L 08/29/24 10:58 Pulse Ox 95 08/29/24 10:58 Oxygen Delivery Method Room Air 08/29/24 10:58 Care Plan Goal for BP management: <130/90 at goal BMI result Body Mass Index 21.3 normal bmi Tobacco/Smoking Status: Tobacco use Status Tobacco use date assessed 08/29/24 08/29/24 11:06 Patient Tobacco Use Status Former Tobacco user 08/29/24 11:06 Tobacco use type Cigarette 08/29/24 11:06 e-Cigarette/Vaping Use 08/29/24 11:06 PHQ-9: PHQ-9 Score PHQ-9: Total score 0 08/29/24 11:06 Depression Screening Interpretation: Negative Thrive Assessment: Date of Thrive Assessment Date Thrive assessed 08/29/24 08/29/24 11:06 Const Other: Appearance: Alert. Oriented X3. No acute distress. Head: Normal external exam. Normocephalic. Atraumatic. Eyes: Pupils are equal, round, and reactive to light. Extraocular movements intact. Conjunctiva and sclera normal. Eyelids normal. Ears: External auditory canal normal. Tympanic membranes normal. Throat: Pharynx normal. Uvula midline. Moist mucous membranes. Neck: Normal inspection. Neck supple. Full range of motion. No adenopathy. Thyroid Normal. No meningeal signs. No neck mass noted. Cardiovascular: Normal heart rate and rhythm. Heart sound normal. No murmurs noted. Pulses normal throughout. Respiratory: No respiratory distress. Painless inspiration. Breath sounds normal. No wheezes/rales/rhonchi noted. Chest nontender. No accessory muscle usage noted or decreased air movement noted. Abdomen: Soft and nontender. Bowel sounds normal in all 4 quadrants. No distention noted. No organomegaly noted. No visible injury noted. Back: No costovertebral angle tenderness. Full range of motion noted. Skin: Skin warm and dry. Normal skin color. Normal skin turgor. No rashes/lesions/lacerations noted. Extremities: No lower extremity edema. Extremities exhibit normal range of motion. Extremities nontender. Neuro: Oriented X 3. No motor deficit. No sensory deficit. Reflexes normal. Results Reviewed Results Reviewed: - Labs: Platelet count improved post-treatment for CML from 40,000 to over 90,000, CBC stable. - Imaging: Mammogram done on 11/23/2023; bone density scan done on 03/23/2024. - Scheduled Tests: Mammogram planned for November 28, 2024. Coding Level of Care Code Est Pt Level 4 (40134) Complex EM visit Add On G2211 Diagnoses Establishing care with new doctor, encounter for Z76.89 Chronic lymphocytic leukemia C91.10 Age-related osteoporosis without current pathological fracture M81.0 Osteoporosis type: age-related Presence of current pathological fracture: without current pathological fracture Polymyalgia rheumatica M35.3 Asthma J45.909 Additional Codes PHQ-9 - 85586 - PHQ-9 Billing: Yes ([id number]) ZAKIYA-7 Assessment Billing - ZAKIYA-7 Assessment Tool: ZAKIYA-7 Assessment 16313 ([id number]) Assessment & Plan Assessment & Plan (1) Establishing care with new doctor, encounter for: Code(s): Z76.89 - Persons encountering health services in other specified circumstances Category: Medical (2) Chronic lymphocytic leukemia: Code(s): C91.10 - Chronic lymphocytic leukemia of B-cell type not having achieved remission Category: Medical Plan: The patient is in remission with improved platelet count post-treatment and is regularly monitored by her oncologist. We will perform comprehensive labs during her upcoming oncology visit, ensuring fasting for accurate tests. (3) Osteoporosis: Comment: Alendronate: November 2019- present Code(s): M81.0 - Age-related osteoporosis without current pathological fracture Category: Medical Qualifiers: Osteoporosis type: age-related Presence of current pathological fracture: without current pathological fracture Qualified Code(s): M81.0 - Age- related osteoporosis without current pathological fracture Plan: The patient receives regular bone density monitoring, last scanned in March 2024. Follow-up scans are scheduled and essential for her osteoporosis management. Condition is chronic and stable will continue to monitor. (4) Polymyalgia rheumatica: Comment: Prednisone 12/2019-10/2021. Restarted February 2022- 07/2022 Code(s): M35.3 - Polymyalgia rheumatica Category: Medical Plan: Managed by rheumatology, no new symptoms currently. Regular follow-up with Dr. Friend in place to manage condition. Condition is chronic and stable continue to monitor. (5) Asthma: Code(s): J45.909 - Unspecified asthma, uncomplicated Category: Medical Plan: Maintains use of Albuterol. Advised continued monitoring for symptom control and appropriate use. Condition is chronic and stable continue to monitor. Plan Plan Patient was informed and verbally consented to the use of an ambient scribe for clinic note documentation during this visit. 1. Chronic Myeloid Leukemia Cml The patient is in remission with improved platelet count post-treatment and is regularly monitored by her oncologist. We will perform comprehensive labs during her upcoming oncology visit, ensuring fasting for accurate tests. 2. Osteoporosis The patient receives regular bone density monitoring, last scanned in March 2024. Follow-up scans are scheduled and essential for her osteoporosis management. 3. Polymyalgia Rheumatica Managed by rheumatology, no new symptoms currently. Regular follow-up with Dr. Friend in place to manage condition. 4. Asthma Maintains use of Albuterol. Advised continued monitoring for symptom control and appropriate use. During the visit, I discussed with the patient the management of her current health conditions, focusing on chronic myeloid leukemia, osteoporosis, polymyalgia rheumatica, and asthma. We emphasized the importance of continuous monitoring via lab work, bone density scans, and regular appointments with specialists, including oncologists and rheumatologists. The patient is aware of the need to fast for upcoming blood work to manage her conditions. Additionally, we reinforced the use of Albuterol for asthma and the advantage of staying closely connected with her healthcare team for optimal management. Follow-up on these chronic conditions will occur regularly, with six-monthly assessments unless otherwise needed. Orders: Orders Hemoglobin A1c Today Z00.00 - Encounter for general adult medical examination without abnormal findings Lipid Panel Today Z00.00 - Encounter for general adult medical examination without abnormal findings TSH reflex Free T4 Today Z00.00 - Encounter for general adult medical examination without abnormal findings Vitamin B12 and Folate Today Z00.00 - Encounter for general adult medical examination without abnormal findings Vitamin D 25-OH Total Today Z00.00 - Encounter for general adult medical examination without abnormal findings Magnesium Today Z00.00 - Encounter for general adult medical examination without abnormal findings Patient Instructions: - Continue to take prescribed medications as directed, including Albuterol for asthma. - Fast 10-12 hours before your scheduled blood work at the oncology appointment. - Attend all scheduled follow-up appointments with specialists. - Report any new symptoms or changes in existing conditions to your care team promptly. - Stay engaged with family and community activities for overall well-being.
== END 2024-08-29 11:36 | disposition home or self-care (01) ==
LOC: HO.HMCSH 10:57
PROVIDERS: PCP Internal Medicine; Visit Provider Physician Assistant Medical
DX: Z76.89 Persons encountering health services in other specified circumstances (principal); C91.10 Chronic lymphocytic leukemia of B-cell type not having achieved remission; M81.0 Age-related osteoporosis without current pathological fracture; M35.3 Polymyalgia rheumatica; J45.909 Unspecified asthma, uncomplicated

== ENCOUNTER → 2024-08-29 10:57 | Outpatient (BNVA) | payer MEDICARE, SELFPAY | PROVIDERS: PCP Internal Medicine; Visit Provider Physician Assistant Medical | DX: C91.10 Chronic lymphocytic leukemia of B-cell type not having achieved remission (principal); M81.0 Age-related osteoporosis without current pathological fracture; M35.3 Polymyalgia rheumatica; J45.909 Unspecified asthma, uncomplicated; Z76.89 Persons encountering health services in other specified circumstances | CPT/HCPCS: 96127; 99212 ==

== ENCOUNTER 2024-10-05 10:34 | Outpatient (AMB) | payer MEDICARE, SELFPAY ==
--- NOTE | 2024-10-05 10:41 | A.OFFVIS_ITS ---
Vital Signs 10/05/24 10:45 Height 5 ft 3 in Weight 116 lb 13.52 oz BMI 20.7 BP 100/60 Blood Pressure Location Lt brachial Position Sitting Pulse 85 Pulse Source Pulse Oximeter Pulse Oximetry (%) 97 Oxygen Delivery Method Room Air Intake Visit Reasons: PMR Intake Note: Patient presents for PMR follow up. Allergies codeine Adverse Reaction (Intermediate, Verified 10/05/24 10:43) nausea HPI Comments Details: Patient is an 79-year-old female current everyday smoker with asthma, CLL, ITP, PMR and osteoporosis here today for follow up Interval History: Patient last seen 03/31/[address] Saxena. At that time she was following up for her PMR and osteoporosis. She was no longer on steroids as she had weaned off steroids 07/2022. Today, She continues to feel well No return of symptoms No headaches or visual chnages No falls or fractures Rheumatologic History: PMR - Prednisone 12/2019-10/2021. Restarted February 2022- 07/2022 ITP - 09/2023, received 1 round of rituximab with improvement Osteoporosis - Alendronate: November 2019- present Current Rheumatology Medication(s): Alendronate 70mg weekly Vit D supplementation PFSH Medical History (Updated 10/05/24 @ 13:10 by Kell Friend MD) Asthma Establishing care with new doctor, encounter for History of mammogram (~11/23/23) Current smoker Osteoporosis Cyclic citrullinated peptide (CCP) antibody positive Polymyalgia rheumatica Surgical History History of tonsillectomy and adenoidectomy Family History Father Prostate cancer Paternal Aunt Liver cancer Paternal Aunt Brain cancer Social History Household Members: Spouse Housing: House Alcohol intake: current Alcohol intake frequency: does not drink Patient Tobacco Use Status: Former Tobacco user Tobacco use type: Cigarette service: No Current occupational status: retired Cognitive needs: No Hearing needs: No Vision needs: Yes (rx glasses) Review of Systems Const Details: Review of Systems Constitutional: Denies fever, chills, weight loss ENT: Denies vision changes, eye pain or eye redness, dental caries, dry mouth GI: Denies nausea, vomiting, diarrhea, abdominal pain, change in BM Pulm: Denies SOB, GERARDO, hemoptysis, wheezing Cards: Denies chest pain, palpitations Skin: Denies Raynaud's, rash, nail changes, photosensitivity, FINANCIAL AID COORDINATOR: Denies headaches, weakness, paresthesias, recurrent falls MSK: as per HPI All other systems reviewed and are unremarkable except noted above Physical Exam Vital Signs: Last Vital Signs Pulse 85 10/05/24 10:45 BP 100/60 10/05/24 10:45 Pulse Ox 97 10/05/24 10:45 Oxygen Delivery Method Room Air 10/05/24 10:45 BMI result Body Mass Index 20.7 Vital signs reviewed Physical Examination CONSTITUITIONAL Patient alert and cooperative. Well appearing and in no apparent painful distress HEENT Conjunctiva and sclera clear. No lymphadenopathy. CHEST/RESPIRATORY SYSTEM Normal respiratory effort and able to speak in complete sentences. No crackles, rales, rhonchi, wheezes heard. CARDIAC SYSTEM Regular rate and rhythm. S1 and S2 heard no murmurs. Radial pulses intact bilaterally MSK Hands * Right Hand: Able to make a fist. No swelling or tenderness to palpation of these joints. Herbeden's nodes * Left Hand: Able to make a fist. No swelling or tenderness to palpation of these joints. Herbeden's nodes Wrists * Right Wrist: Full ROM. 70 degrees of wrist flexion, 80 degrees of wrist extension. No swelling or TTP * Left Wrist: Full ROM. 70 degrees of wrist flexion, 80 degrees of wrist extension. No swelling or TTP Elbows * Right Elbow: Full ROM. No swelling or TTP. No TTP of the medial and lateral epicondyles * Left Elbow: Full ROM. No swelling or TTP. No TTP of the medial and lateral epicondyles Shoulders * Right shoulder: Full ROM. No swelling noted. No TTP of the AC joint, subacromial bursa or posterior shoulder * Left shoulder: Full ROM. No swelling noted. No TTP of the AC joint, subacromial bursa or posterior shoulder Knees * Right knee: Full ROM. No swelling noted. No TTP of the knee joint lie or pes anserine bursa. Crepitations felt * Left knee: Full ROM. No swelling noted. No TTP of the knee joint lie or pes anserine bursa. Crepitations felt Ankles * Right ankle: Good ankle dorsiflexion and plantar flexion. No swelling. No TTP of the ankle joint * Left ankle: Good ankle dorsiflexion and plantar flexion. No swelling. No TTP of the ankle joint Feet * Right foot: Negative squeeze test * Left foot: Negative squeeze test Tender points? * No tenderness to palpation of the bilateral trapezius, supraspinatus, anterior costochondral junctions, bilateral suboccipital muscle insertions SKIN No rashes Results Reviewed Results Reviewed: Laboratory Tests 09/02/24 10:05 WBC 9.0 RBC 4.63 Hgb 14.1 Hct 41.3 Plt Count 114 L Sodium 140 Potassium 4.5 Chloride 107 Carbon Dioxide 27 BUN 11 Creatinine 0.67 AST 26 ALT 17 Alkaline Phosphatase 44 Total Protein 6.9 DEXA 03/2024 FINDINGS: LEFT FEMUR, NECK: Current: BMD 0.724 g/cm2, Z-score 0.2, T-score -2.3, osteopenia. Prior: BMD 0.731 g/cm2. Baseline: BMD 0.757 g/cm2. LEFT FEMUR, TOTAL: Current: BMD 0.769 g/cm2, Z-score 0.4, T-score -1.9, osteopenia, 7.7% decrease from previous, 6.1% decrease from baseline (<5% change is not significant). Prior: BMD 0.833 g/cm2. Baseline: BMD 0.819 g/cm2. AP SPINE L1-L4: Current: BMD 0.948 g/cm2, Z-score 0.3, T-score -1.9, osteopenia, 1.5% decrease from previous, 1.7% increase from baseline (<5% change is not significant). Prior: BMD 0.962 g/cm2. Baseline: BMD 0.932 g/cm2. Assessment & Plan Assessment & Plan (1) Polymyalgia rheumatica: Comment: Prednisone 12/2019-10/2021. Restarted February 2022- 07/2022 Code(s): M35.3 - Polymyalgia rheumatica Category: Medical Plan: #PMR Patient is an 79-year-old female with history of PMR here today for follow up. Currently in remission off steroids. We will continue to monitor Plan - Monitor off steroids - RTC 6 months - Labs before visit: CBC, CMP, ESR, CRP (2) Osteoporosis: Comment: DEXA 10/2021: AP Spine -1.8, Left femur neck -2.2, Left femur total -1.4. FRAX 40.3/15.6 DEXA 03/2024: AP Spine -1.9, Left femur neck -2.3, Left femur total -1.9. Alendronate: November 2019- present Code(s): M81.0 - Age-related osteoporosis without current pathological fracture Category: Medical Qualifiers: Osteoporosis type: age-related Presence of current pathological fracture: without current pathological fracture Qualified Code(s): M81.0 - Age- related osteoporosis without current pathological fracture Plan: #Osteopenia with elevated FRAX Patient with osteopenia with significantly elevated fracture index. Currently on alendronate. Repeat bone density did show slight worsening of her femur however given that she is still osteopenic and not full bowel osteoporosis we will continue her alendronate and I gave her a pamphlet to encourage weight- bearing exercises. We will need to check a vitamin-D at next blood draw (3) Encounter for ongoing osteoporosis therapy, bisphosphonates: Code(s): M81.0 - Age-related osteoporosis without current pathological fracture; Z79.83 - longterm (current) use of bisphosphonates Plan: #Long-term Use of Bisphosphonates Risks and benefits of bisphosphonates in the management of osteoporosis Benefits include improved bone density, decreased fracture risk Risks include atypical femoral fractures, GI upset, esophageal strictures Contraindicated in patients with a creatinine clearance < 30 to 35 ml/min Keep vitamin-D at least 35 ng/mL Plan I spent 28 minutes reviewing the record and labs, taking a history, examining the patient, discussing the treatment plan, ordering diagnostic work up and documenting in the medical record Orders: Orders Vitamin D 25-OH Total 6 Months M35.3 - Polymyalgia rheumatica, M81.0 - Age- related osteoporosis without current pathological fracture Complete Blood Count Auto Diff 6 Months M35.3 - Polymyalgia rheumatica, M81.0 - Age-related osteoporosis without current pathological fracture C Reactive Protein 6 Months M35.3 - Polymyalgia rheumatica, M81.0 - Age-related osteoporosis without current pathological fracture Erythrocyte Sedimentation Rate 6 Months M35.3 - Polymyalgia rheumatica, M81.0 - Age-related osteoporosis without current pathological fracture Comprehensive Met. Panel 6 Months M35.3 - Polymyalgia rheumatica, M81.0 - Age- related osteoporosis without current pathological fracture Coding Level of Care Code Est Pt Level 3 (44853) Complex EM visit Add On G2211 Diagnoses Polymyalgia rheumatica M35.3 Age-related osteoporosis without current pathological fracture M81.0 Osteoporosis type: age-related Presence of current pathological fracture: without current pathological fracture Encounter for ongoing osteoporosis therapy, bisphosphonates M81.0; Z79.83
[2024-10-05 10:45] VITALS: BP 100/60; PULSE 85; O2SAT 97; BMI 20.7
== END 2024-10-05 11:29 | disposition home or self-care (01) ==
LOC: HO.RHE 10:35
PROVIDERS: PCP Internal Medicine; Visit Provider Student in an Organized Health Care Education/Training Program
DX: M35.3 Polymyalgia rheumatica (principal); M81.0 Age-related osteoporosis without current pathological fracture; Z79.83 Long term (current) use of bisphosphonates
CPT/HCPCS: 99213; G2211

== ENCOUNTER → 2024-10-05 10:34 | Outpatient (BNVA) | payer MEDICARE, SELFPAY | PROVIDERS: PCP Internal Medicine; Visit Provider Student in an Organized Health Care Education/Training Program | DX: M35.3 Polymyalgia rheumatica (principal); M81.0 Age-related osteoporosis without current pathological fracture; Z79.83 Long term (current) use of bisphosphonates | CPT/HCPCS: 99212 ==

== ENCOUNTER 2024-11-28 10:25 | Outpatient (REF) | payer MEDICARE, SELFPAY | END 2024-11-28 10:26 | disposition home or self-care (01) | LOC: HO.MAMMO 10:25 | PROVIDERS: PCP Internal Medicine; Visit Provider Internal Medicine | DX: Z12.31 Encounter for screening mammogram for malignant neoplasm of breast (principal) | CPT/HCPCS: 77063; 77067 ==

== ENCOUNTER → 2024-11-28 11:00 | Outpatient (BNV) | payer MEDICARE, SELFPAY | PROVIDERS: PCP Internal Medicine; Visit Provider Internal Medicine | DX: Z12.31 Encounter for screening mammogram for malignant neoplasm of breast (principal) | CPT/HCPCS: 77063; 77067 ==

== ENCOUNTER 2024-12-22 11:00 | Outpatient (AMB) | payer MEDICARE, SELFPAY ==
[2024-12-22 10:50] VITALS: BP 128/85; PULSE 78; RESP 14; TEMP 36.7; O2SAT 97; BMI 20.5
--- NOTE | 2024-12-22 10:50 | A.OFFPC_ITS ---
Vital Signs 12/22/24 10:50 Height 5 ft 3 in Weight 116 lb BMI 20.5 BP 128/85 Respiration 14 Pulse 78 Pulse Source Pulse Oximeter Temp 98.0 F Temp Source Temporal Artery Scan Pulse Oximetry (%) 97 Oxygen Delivery Method Room Air Intake Visit Reasons: Lump on neck Environmental Sustainability Manager Required: No Accompanied by: Self / Same As Patient Allergies codeine Adverse Reaction (Intermediate, Verified 12/22/24 11:27) nausea Medication List - Last Reconciled 12/22/24 by Macarena Licea PA-C albuterol sulfate 90 mcg/actuation 1 inh inhalation QID PRN alendronate 70 mg PO QWEEK calcium carbonate 1,200 mg PO DAILY cholecalciferol (vitamin D3) 50 mcg PO DAILY cyclosporine 0.05% (Restasis MultiDose) 1 drp ophthalmic (eye) Q12H multivitamin 1 tab PO DAILY omega-3 fatty acids 1,000 mg PO DAILY Tobacco use date assessed: 12/22/24 Dental Screening Dental Screen Date: 08/29/24 HPI Lump on neck HPI Details The patient is an 79-year-old female presenting with a neck lump that has been fluctuating in size. The neck lump has been present for a couple of days and is located on the left side, under the submandibular area. The patient reports that the lump increases in size after eating, suggesting a possible calcium deposit in the salivary duct. The patient has a history of leukemia, which is currently in remission. Her last treatment was in October of the previous year, and she undergoes monthly blood work to monitor her condition. The most recent blood work showed platelet levels at 117,000/?L. [facility] Medical History (Updated 12/22/24 @ 11:33 by Macarena Licea PA-C) Leukemia in remission Lump in neck Thyroid nodule Mass of left submandibular region Asthma Establishing care with new doctor, encounter for History of mammogram (~11/23/23) Current smoker Osteoporosis Cyclic citrullinated peptide (CCP) antibody positive Polymyalgia rheumatica Surgical History History of tonsillectomy and adenoidectomy Family History Father Prostate cancer Paternal Aunt Liver cancer Paternal Aunt Brain cancer Social History Household Members: Spouse Housing: House Alcohol intake: current Alcohol intake frequency: does not drink Patient Tobacco Use Status: Former Tobacco user Tobacco use type: Cigarette service: No Current occupational status: retired Cognitive needs: No Hearing needs: No Vision needs: Yes (rx glasses) Questionnaire PHQ-9 Over the last 2 weeks, how often have you been bothered by any of the following problems? 1. Little interest or pleasure in doing things: not at all 2. Feeling down, depressed, or hopeless: not at all 3. Trouble falling or staying asleep, or sleeping too much: not at all 4. Feeling tired or having little energy: not at all 5. Poor appetite or overeating: not at all 6. Feeling bad about yourself - or that you are a failure or have let yourself or your family down: not at all 7. Trouble concentrating on things, such as reading the newspaper or watching television: not at all 8. Moving or speaking so slowly that other people could have noticed. Or the opposite - being so fidgety or restless that you have been moving around a lot more than usual: not at all 9. Thoughts that you would be better off or of hurting yourself in some way: not at all Total score: 0 Depression Screening Interpretation: Negative Depression Screening Done: Yes 28822 - PHQ-9 Billing: Yes Source: Developed by Drs. Gerald Roper, Isa Fontanez, Saji Alejandre and colleagues, with an educational veronica from [employer]. Thrive Questionnaire Date Thrive assessed: 08/29/24 I am a: Patient What is your living situation today?: I have a steady place to live Within the past 12 months, did the food you bought not last and you didn't have the money to get more?: Never true Within the past 12 months, did you worry whether your food would run out before you got money to buy more?: Never true Do you have trouble paying for medicines?: No Do you have trouble getting transportation to medical appointments?: No Do you have trouble paying your heating and electricity bill?: No Do you have trouble taking care of your child, family member or friend?: No Do you have trouble with day-to-day activities such as bathing, preparing meals, shopping, managing finances, etc.?: No Are you currently unemployed and looking for a job?: No Are you interested in more education?: No Please select the resources that you would like help with: None THRIVE Score: 0 AUDIT C Alcohol Use Questionnaire (AUDIT-C) 1. How often do you have a drink containing alcohol?: Never 3. How often do you have six or more drinks on one occasion?: Never Total Score: 0 Score Reviewed/Action Taken: No ZAKIYA-7 AMB Questionnaire ZAKIYA-7 Date ZAKIYA - 7 assessed: 08/29/24 Feeling nervous, anxious, or on edge: 0 = Not at all Not being able to stop or control worryin = Not at all Worrying too much about different things: 0 = Not at all Trouble relaxin = Not at all Being so restless that it is hard to sit still: 0 = Not at all Becoming easily annoyed or irritable: 0 = Not at all Feeling afraid as if something awful might happen: 0 = Not at all Total ZAKIYA-7 score (0-4 normal; 5-9 mild; 10-14 moderate; 15-21 severe): 0 Source: Developed by Drs. Gerald Roper, Isa Fontanez, Saji Alejandre and colleagues, with an educational veronica from [employer]. ZAKIYA-7 Assessment Billing ZAKIYA-7 Assessment Tool: ZAKIYA-7 Assessment 13407 Review of Systems Const Details: - Lymphatic: Reports neck lump with fluctuating size - Endocrine: Reports possible thyroid nodule - Gastrointestinal: Denies pain during abdominal examination All systems reviewed & are unremarkable except as noted in HPI and below Physical exam (Primary Care) Vital Signs: Last Vital Signs Temp 98.0 F 12/22/24 10:50 Pulse 78 12/22/24 10:50 Resp 14 12/22/24 10:50 BP 128/85 12/22/24 10:50 Pulse Ox 97 12/22/24 10:50 Oxygen Delivery Method Room Air 12/22/24 10:50 Care Plan Goal for BP management: <140/90 at Goal BMI result Body Mass Index 20.5 normal bmi Tobacco/Smoking Status: Tobacco use Status Tobacco use date assessed 12/22/24 12/22/24 10:51 Patient Tobacco Use Status Former Tobacco user 12/22/24 10:51 Tobacco use type Cigarette 12/22/24 10:51 e-Cigarette/Vaping Use Never Used 07/25/22 14:07 PHQ-9: PHQ-9 Score PHQ-9: Total score 0 12/22/24 11:05 Depression Screening Interpretation: Negative Thrive Assessment: Date of Thrive Assessment Date Thrive assessed 08/29/24 12/22/24 10:51 Const Other: Appearance: Alert. Oriented X3. No acute distress. Head: Normal external exam. Normocephalic. Atraumatic. Eyes: Pupils are equal, round, and reactive to light. Extraocular movements intact. Conjunctiva and sclera normal. Eyelids normal. Ears: External auditory canal normal. Tympanic membranes normal. Throat: Pharynx normal. Uvula midline. Moist mucous membranes. Neck: Normal inspection. Neck supple. Full range of motion. No adenopathy. Thyroid Normal. No meningeal signs. A lump noted under the left submandibular area. Cardiovascular: Normal heart rate and rhythm. Respiratory: No respiratory distress. Painless inspiration. Back: Full range of motion noted. Skin: Skin warm and dry. Normal skin color. Normal skin turgor. No rashes/lesions/lacerations noted. Extremities: Extremities exhibit normal range of motion. Neuro: Oriented X 3. No motor deficit. No sensory deficit. Reflexes normal. Results Reviewed Results Reviewed: - Imaging: Previous CT scan showed mildly prominent lymph nodes in the bilateral level 1 neck overlying the right submandibular area, suggestive of reactive lymphadenopathy. - Labs: Platelet count at 117,000/?L from recent blood work. Coding Level of Care Code Est Pt Level 4 (58413) Complex EM visit Add On G2211 Diagnoses Lump in neck R22.1 Thyroid nodule E04.1 Leukemia in remission C95.91 Additional Codes ZAKIYA-7 Assessment Billing - ZAKIYA-7 Assessment Tool: AZKIYA-7 Assessment 59881 ([id number]) PHQ-9 - 13432 - PHQ-9 Billing: Yes ([id number]) Assessment & Plan Assessment & Plan (1) Lump in neck: Code(s): R22.1 - Localized swelling, mass and lump, neck Category: Medical Plan: The plan includes ordering a CT scan and an ultrasound of the neck to evaluate the lump further. Blood work will be required prior to the CT scan to assess kidney function for contrast use. The patient is advised to follow up in two months to review the results and discuss further management. (2) Thyroid nodule: Code(s): E04.1 - Nontoxic single thyroid nodule Category: Medical Plan: The plan includes ordering a CT scan and an ultrasound of the neck to evaluate the lump further. Blood work will be required prior to the CT scan to assess kidney function for contrast use. The patient is advised to follow up in two months to review the results and discuss further management. (3) Leukemia in remission: Code(s): C95.91 - Leukemia, unspecified, in remission Category: Medical Plan: The patient continues to be monitored with monthly blood work to ensure remission status is maintained. Plan Plan Patient was informed and verbally consented to the use of an ambient scribe for clinic note documentation during this visit. 1. Neck Lump The plan includes ordering a CT scan and an ultrasound of the neck to evaluate the lump further. Blood work will be required prior to the CT scan to assess kidney function for contrast use. The patient is advised to follow up in two months to review the results and discuss further management. 2. Leukemia In Remission The patient continues to be monitored with monthly blood work to ensure remission status is maintained. I discussed with the patient the need for a CT scan and ultrasound of the neck to further evaluate the lump, considering her history of leukemia. I explained the importance of blood work prior to the CT scan to check kidney function due to the use of contrast. We agreed on a follow-up in two months to review the results and plan further management. Orders: Orders US thyroid Today E04.1 - Nontoxic single thyroid nodule, R22.0 - Localized swelling, mass and lump, head Comprehensive Met. Panel Today Z00.00 - Encounter for general adult medical examination without abnormal findings CT soft tissue neck w IV con Today E04.1 - Nontoxic single thyroid nodule, R22.0 - Localized swelling, mass and lump, head Complete Blood Count Auto Diff Today Z00.00 - Encounter for general adult medical examination without abnormal findings Patient Instructions: - Schedule and complete the CT scan and ultrasound of the neck as ordered. - Complete blood work one week before the CT scan appointment. - Follow up in two months to discuss the results and next steps. - Report any worsening symptoms, difficulty swallowing, or changes in voice immediately.
== END 2024-12-22 11:20 | disposition home or self-care (01) ==
LOC: HO.HMCSH 11:00
PROVIDERS: PCP Internal Medicine; Visit Provider Physician Assistant Medical
DX: R22.1 Localized swelling, mass and lump, neck (principal); E04.1 Nontoxic single thyroid nodule; C95.91 Leukemia, unspecified, in remission

== ENCOUNTER → 2024-12-22 11:00 | Outpatient (BNVA) | payer MEDICARE, SELFPAY | PROVIDERS: PCP Internal Medicine; Visit Provider Physician Assistant Medical | DX: E04.1 Nontoxic single thyroid nodule (principal); R22.0 Localized swelling, mass and lump, head; C95.91 Leukemia, unspecified, in remission | CPT/HCPCS: 96127; 99212 ==

== ENCOUNTER 2025-01-20 10:19 | Outpatient (REF) | payer MEDICARE, SELFPAY ==
[2025-01-20 13:56] LABS: Hematocrit 42.9 % (37.0-47.0); Hemoglobin 14.0 g/dl (12.0-16.0); Imm Gran Abs Auto 0.02 X10*3/uL (0.00-0.03); Imm Gran Pct Auto 0.2 % (0.0-0.4); MANUAL DIFF FLAG SCAN; Mean Corpuscular HGB Conc 32.6 g/dl (31.0-35.0); Mean Corpuscular Hemoglobin 30.0 pg (27.0-33.0); Mean Corpuscular Volume 91.9 fL (80.0-98.0); NRBC Abs Auto 0.000 X10*3/uL (0.0-0.012); NRBC Pct Auto 0.0 /100WBC (0.0-0.2); Platelet Count 120 X10*3/uL (160-400); Red Blood Count 4.67 X10*6/uL (4.20-5.50); SCAN SMEAR FLAG 1; White Blood Count 10.9 X10*3/uL (4.8-10.8)
[2025-01-20 13:59] LABS: Lymphocytes Absolute Auto 7.5 X10*3/uL (1.2-4.9)
[2025-01-20 14:30] LABS: Alanine Aminotransferase 16 U/L (0-31); Albumin Level 4.4 g/dL (3.5-5.0); Alkaline Phosphatase 44 U/L (39-117); Anion Gap 8 (12-20); Aspartate Amino Transferase 32 U/L (5-31); Blood Urea Nitrogen 13 mg/dL (9-16); Calcium 8.9 mg/dL (8.4-10.2); Carbon Dioxide 27 mmol/L (22-29); Chloride 107 mmol/L (96-108); Cholesterol 222 mg/dL (<200); Estimated Glomerular Filt Rate > 60; HDL Cholesterol 74 mg/dL (>40); Magnesium 2.2 mg/dL (1.6-2.6); Potassium 4.3 mmol/L (3.3-5.1); Sodium 138 mmol/L (135-145); Total Protein 6.9 g/dL (6.5-8.0); Triglycerides 81 mg/dL (<150)
[2025-01-20 15:09] LABS: Folate 13.8 ng/mL (> or = 4.0); Vitamin B12 606 pg/mL (200-900)
== END 2025-01-20 10:20 | disposition home or self-care (01) ==
LOC: HO.HMGCLDS 10:19
PROVIDERS: PCP Internal Medicine; Visit Provider Physician Assistant Medical
DX: Z00.00 Encounter for general adult medical examination without abnormal findings (principal); Z13.1 Encounter for screening for diabetes mellitus; Z13.6 Encounter for screening for cardiovascular disorders; Z13.29 Encounter for screening for other suspected endocrine disorder; Z13.0 Encounter for screening for diseases of the blood and blood-forming organs and certain disorders involving the immune mechanism
CPT/HCPCS: 36415; 80053; 80061; 82306; 82607; 82746; 83036; 83735; 84443; 85025

== ENCOUNTER 2025-01-27 13:39 | Outpatient (REF) | payer MEDICARE, SELFPAY ==
--- NOTE | ~2025-01-27 | CT_ITS ---
EXAMINATION: CT SOFT TISSUE NECK WITH CONTRAST CLINICAL INFORMATION: Nontoxic single thyroid nodule . COMPARISON: 03/20/2023 CT neck. TECHNIQUE: Following the intravenous administration of 70 mL of Omnipaque 350 intravenous contrast, helical imaging was performed in the axial plane with generation of coronal and sagittal reformatted images. This CT examination was performed using dose optimization techniques as appropriate, variously including the following: *Automated exposure control *Adjustment of mA and/or kV according to patient size (this includes techniques or standardized protocols for targeted exams where dose is matched to indication/reason for exam; i.e. extremities or head) *Use of iterative reconstruction technique FINDINGS: Lymph Nodes: -There is no abnormal lymphadenopathy within the anterior or posterior cervical chains. Carotid Sheath Structures: -Normal. Salivary Glands: -The parotid glands are normal in appearance. -The submandibular glands are mildly prominent, left greater than right, with notable duct ectasia. These findings are stable. There is no stone. There is no submandibular mass lesion. -The sublingual glands appear normal. Tongue Base/Floor of Mouth: -Normal Mucosal Space: -There is no abnormal enhancing mucosal space mass. -There is mild prominence of the lingual tonsillar tissue, similar to the prior exam. -The epiglottis, aryepiglottic folds appear normal. Visceral Space: -The thyroid gland appears normal. -Larynx appears normal. The vocal cords are adducted, likely on the basis of breath-hold. -The subglottic trachea appears normal. -The cervical esophagus appears normal. Retropharangeal Space: - Normal. Parapharyngeal Fat Planes: -Normal. Search Marketing Analyst Spaces: -Normal. Anterior Cervical Space: -Normal. Imaged Intracranial Contents: -No mass effect, edema, or abnormal enhancement. Cortical and dural venous sinuses are patent. The skull base is normal. Globes and Orbits: -There are bilateral lens implants. Orbits otherwise normal. Paranasal Sinuses/Mastoids/Tympanic Spaces: -Normally aerated bilaterally. Lung Apices and Superior Mediastinal Structures: -Imaged superior mediastinal structures appear normal. -Centrilobular emphysematous changes are present in the imaged lung apices. No suspicious nodules. Bony Structures: -No suspicious bone lesions. No fractures. -Normal TM joints. -Moderate degenerative changes in the sternoclavicular joints. -Mild to moderate spondylosis of the cervical spine. -The patient is edentulous. CT/CT soft tissue neck w IV con IMPRESSION: 1. No acute findings in the neck. No masses or suspicious lymph nodes. 2. Normal-appearing thyroid gland. No definite thyroid nodule appreciated. 3. Mild stable prominence of the lingual tonsillar tissue, presumably reactive. 4. 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 5. Centrilobular emphysema in the imaged lung apices. Electronically signed by: Alfredo Marshall MD 01/27/2025 03:10 PM EDT
[2025-01-27] MEDS: iohexoL 350 MG/ML 100 ML INFUS..BTL IV (14:38)
== END 2025-01-27 13:40 | disposition home or self-care (01) ==
LOC: HO.CT 13:39
PROVIDERS: PCP Internal Medicine; Visit Provider Physician Assistant Medical
DX: E04.1 Nontoxic single thyroid nodule (principal); R22.0 Localized swelling, mass and lump, head
CPT/HCPCS: 70491; Q9967

== ENCOUNTER → 2025-01-27 13:41 | Outpatient (BNV) | payer MEDICARE, SELFPAY | PROVIDERS: PCP Internal Medicine; Visit Provider Radiology Diagnostic Radiology | DX: E04.1 Nontoxic single thyroid nodule (principal); K11.8 Other diseases of salivary glands | CPT/HCPCS: 70491 ==

== ENCOUNTER 2025-02-07 14:01 | Outpatient (REF) | payer MEDICARE, SELFPAY ==
--- NOTE | ~2025-02-07 | US_ITS ---
EXAMINATION: US THYROID CLINICAL INFORMATION: R22.0. Swelling versus mass versus lump. COMPARISON: Correlated to CT soft tissue neck dated January 27, 2025. TECHNIQUE: Linear transducer grayscale and color Doppler examination with attention to the region of the thyroid. FINDINGS: SIZE: Measurements of the thyroid lobes and nodules are given in sagittal, anteroposterior and transverse dimensions respectively. Right Thyroid Lobe: 3.0 x 1.4 x 1.2 cm, volume 0.5 mL. Parenchyma: The gland echotexture is normal. Thyroid vascularity is normal. Left Thyroid Lobe: 2.9 x 1.1 x 1.1 cm, volume 1.7 mL. Parenchyma: The gland echotexture is normal. Thyroid vascularity is normal. Isthmus: 0.29 cm in maximum AP dimension. Estimated total number of nodules greater than or equal to 1 cm: 0. Spool Salvager nodules are described as follows: NODES: Nonspecific prominent cervical lymph nodes. There is prominence of the submandibular glands and the main ducts Please refer to the CT soft tissue neck dated January 27, 2025. US/US thyroid IMPRESSION: ACR TI-RADS category: 1 Prominent Thad's duct. Sialoadenitis cannot be entirely excluded. ACR TI-RADS RECOMMENDATION REFERENCE: Ultrasound-guided fine-needle aspiration, followup ultrasound, no further follow up. * TR1 (0 point) and TR2 (2 points): No FNA or follow up. * TR3 (3 points): FNA if more than or equal to 2.5 cm in maximum dimension, followup ultrasound in 1, 3 and 5 years if 1.5 to 2.4 cm in maximum dimension. * TR4 (4-6 points): FNA if more than or equal to 1.5 cm in maximum dimension, followup ultrasound in 1, 2, 3 and 5 years if 1 to 1.4 cm in maximum dimension. * TR5 (more than or equal to 7 points): FNA if more than or equal to 1 cm in maximum dimension, followup ultrasound every year for 5 years if 0.5 to 0.9 cm in maximum dimension. * TR3, TR4 or TR5 nodules that are below the size threshold for followup receive no follow up. Electronically signed by: Alvaro Slater MD 02/07/2025 02:49 PM EDT
== END 2025-02-07 14:02 | disposition home or self-care (01) ==
LOC: HO.HMGCX 14:01
PROVIDERS: PCP Internal Medicine; Visit Provider Physician Assistant Medical
DX: E04.1 Nontoxic single thyroid nodule (principal); R22.0 Localized swelling, mass and lump, head
CPT/HCPCS: 76536

== ENCOUNTER → 2025-02-07 14:10 | Outpatient (BNV) | payer MEDICARE, SELFPAY | PROVIDERS: PCP Internal Medicine; Visit Provider Radiology Diagnostic Radiology | DX: R22.0 Localized swelling, mass and lump, head (principal) | CPT/HCPCS: 76536 ==

== ENCOUNTER 2025-02-21 10:49 | Outpatient (REF) | payer MEDICARE, SELFPAY ==
--- NOTE | ~2025-02-21 | XR_ITS ---
EXAMINATION: XR KNEE, LEFT CLINICAL INFORMATION: W19.XXXA - Unspecified fall, initial encounter COMPARISON: None available. TECHNIQUE: Four views of the left knee. FINDINGS: No fracture or joint effusion. Alignment is anatomic. Joint spaces are maintained. No abnormal soft tissue calcification. XR/XR knee LT 4V IMPRESSION: Normal left knee. Electronically signed by: Sally Costa MD 02/21/2025 12:22 PM [facility]
--- NOTE | ~2025-02-21 | XR_ITS ---
EXAMINATION: XR TIBIA AND FIBULA, LEFT CLINICAL INFORMATION: Pain COMPARISON: None available. TECHNIQUE: AP and lateral views of the left tibia and fibula were obtained. FINDINGS: Bone alignment is normal. No fracture or dislocation. Normal joint spaces. Small calcaneal spurs. Soft tissues otherwise unremarkable. XR/XR tibia fibula LT 2V IMPRESSION: Normal left tibia and fibula. Small calcaneal spurs. Electronically signed by: Sally Costa MD 02/21/2025 12:23 PM EST
--- OUTSIDE RECORDS SUMMARY | 2025-02-21 14:33 | XMS_ITS ---
Author Organization Unknown ENCOUNTERS Encounter Performer Location Date Diagnosis Diagnosis Status Emergency [address] [address] [id number] [facility] Pre Admit Generic ED Physician [address] [address] [id number] Pre Admit [facility] [address] [id number] *Note: Encounters from your own facility or health system may be excluded. Allergies, Adverse Reactions, Alerts Allergen Type Severity Identification Date codeine drug allergy 3 [id number] Medications Name Date Quantity Days Supplied GPI Number
== END 2025-02-21 10:50 | disposition home or self-care (01) ==
LOC: HO.HMGCX 10:49
PROVIDERS: PCP Internal Medicine; Visit Provider Physician Assistant Medical
DX: M25.562 Pain in left knee (principal); M79.605 Pain in left leg; K11.20 Sialoadenitis, unspecified; Z91.81 History of falling
CPT/HCPCS: 73564; 73590; 99212

== ENCOUNTER 2025-02-21 10:49 | Outpatient (AMB) | payer MEDICARE, SELFPAY ==
[2025-02-21 11:58] VITALS: BP 122/60; PULSE 60; RESP 14; TEMP 36.3; O2SAT 93; BMI 20.7
--- NOTE | 2025-02-21 11:58 | A.OFFPC_ITS ---
Vital Signs 02/21/25 11:58 Height 5 ft 3 in Weight 117 lb 2 oz BMI 20.7 BP 122/60 Blood Pressure Location Rt radial Position Sitting Respiration 14 Pulse 60 Pulse Source Monitor Temp 97.3 F Temp Source Temporal Artery Scan Pulse Oximetry (%) 93 Oxygen Delivery Method Room Air Intake Visit Reasons: follow up Allergies codeine Adverse Reaction (Intermediate, Verified 02/21/25 12:00) nausea Medication List - Last Reconciled 02/21/25 by Macarena Licea PA-C albuterol sulfate 90 mcg/actuation 1 inh inhalation QID PRN alendronate 70 mg PO QWEEK amoxicillin-pot clavulanate 875-125 mg 1 tab PO BID calcium carbonate 1,200 mg PO DAILY cholecalciferol (vitamin D3) 50 mcg PO DAILY cyclosporine 0.05% (Restasis MultiDose) 1 drp ophthalmic (eye) Q12H multivitamin 1 tab PO DAILY omega-3 fatty acids 1,000 mg PO DAILY rosuvastatin (Crestor) 10 mg PO BEDTIME Tobacco use date assessed: 08/29/24 Dental Screening Dental Screen Date: 08/29/24 HPI follow up HPI Details The patient is an 79-year-old female presenting for followup of a lump in her neck and left neck pain. 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 A thyroid ultrasound revealed a prominent Thad's duct, and sialadenitis could not be excluded. She has completed two courses of Augmentin without any improvement in her symptoms. The patient also reports a fall on Thursday at [employer], though she is unsure how it happened and does not recall being dizzy or losing consciousness. A bystander informed her that she got out of her car and just fell. She does not believe she hit her head but has been experiencing left knee pain, lower leg pain, and limping since the incident. She has not fallen since and reports feeling completely fine. Social History - The patient had a fall at [employer]. [facility] Medical History Left leg pain Left knee pain Fall Duct ectasia Sialoadenitis of submandibular gland Mild hypercholesterolemia Hyperlipidemia Leukemia in remission Lump in neck Thyroid nodule Mass of left submandibular region Asthma Establishing care with new doctor, encounter for History of mammogram (~11/23/23) Current smoker Osteoporosis Cyclic citrullinated peptide (CCP) antibody positive Polymyalgia rheumatica Surgical History History of tonsillectomy and adenoidectomy Family History Father Prostate cancer Paternal Aunt Liver cancer Paternal Aunt Brain cancer Social History Household Members: Spouse Housing: House Alcohol intake: current Alcohol intake frequency: does not drink Patient Tobacco Use Status: Former Tobacco user Tobacco use type: Cigarette service: No Current occupational status: retired Cognitive needs: No Hearing needs: No Vision needs: Yes (rx glasses) Questionnaire Thrive Questionnaire Date Thrive assessed: 08/29/24 ZAKIYA-7 AMB Questionnaire ZAKIYA-7 Date ZAKIYA - 7 assessed: 08/29/24 Source: Developed by Drs. Gerald Roper, Isa Fontanez, Saji Alejandre and colleagues, with an educational veronica from [employer]. Review of Systems Const Details: - General: Denies any other symptoms, complaints or concerns. - HEENT: Reports a lump and pain in the left neck. - Neurological: Denies dizziness or loss of consciousness with her recent fall. - Musculoskeletal: Reports left knee pain, lower leg pain, and limping since a fall. All systems reviewed & are unremarkable except as noted in HPI and below Physical exam (Primary Care) Care Plan Goal for BP management: <140/90 at Goal Normal BMI Tobacco/Smoking Status: Tobacco use Status Tobacco use date assessed 12/22/24 12/22/24 11:18 Patient Tobacco Use Status Former Tobacco user 12/22/24 11:18 Tobacco use type Cigarette 12/22/24 11:18 e-Cigarette/Vaping Use Never Used 07/25/22 14:07 Thrive Assessment: Date of Thrive Assessment Date Thrive assessed 08/29/24 12/22/24 11:18 Const Other: Appearance: Alert. Oriented X3. No acute distress. Head: Normal external exam. Normocephalic. Atraumatic. Eyes: Pupils are equal, round, and reactive to light. Extraocular movements intact. Conjunctiva and sclera normal. Eyelids normal. Throat: Pharynx normal. Uvula midline. Moist mucous membranes. Neck: Normal inspection. Neck supple. Full range of motion. No adenopathy. Thyroid Normal. No meningeal signs. Swelling to left submandibular area. Patient tolerating secretions well. Normal voice. No trismus drooling or stridor. Cardiovascular: Normal heart rate and rhythm. Heart sound normal. No murmurs noted. Pulses normal throughout. Respiratory: No respiratory distress. Painless inspiration. Breath sounds normal. No wheezes/rales/rhonchi noted. Chest nontender. No accessory muscle usa ge noted or decreased air movement noted. Back: Full range of motion noted. Skin: Skin warm and dry. Normal skin color. Normal skin turgor. No rashes/lesions/lacerations noted. Extremities: No lower extremity edema. Extremities exhibit normal range of motion. Left knee/tibia with soft tissue swelling, ecchymosis although she has full range of motion no obvious ligamentous or tendon injury noted. Patient walking with a limp. Neuro: Oriented X 3. No motor deficit. No sensory deficit. Reflexes normal. Results Reviewed Results Reviewed: - CT scan of the neck (01/27/2025): No acute findings, masses, or suspicious lymph nodes; normal-appearing thyroid gland; mild stable prominence of the lingual tonsillar tissue; presumed reactive ductal ectasia in both submandibular glands (unchanged); and centrilobular emphysema in the imaged lung apices. - Thyroid ultrasound: Revealed a prominent Houston's duct; sialadenitis cannot be excluded. Coding Level of Care Code Est Pt Level 4 (14710) Complex EM visit Add On G2211 Diagnoses Sialoadenitis of submandibular gland K11.20 Left knee pain M25.562 Left leg pain M79.605 Fall W19.XXXA Time Spent (min) 60 Assessment & Plan Assessment & Plan (1) Sialoadenitis of submandibular gland: Code(s): K11.20 - Sialoadenitis, unspecified Category: Medical Plan: Recent imaging, including a CT scan and an ultrasound, did not show acute abnormalities but could not rule out sialadenitis. Two courses of Augmentin were completed with no symptomatic improvement. No additional antibiotics are indicated at this time. Ibuprofen 600-800 mg every 6 to 8 hours with food was recommended for swelling. The patient has an appointment scheduled with an ENT specialist on the of this month for further evaluation. (2) Left knee pain: Code(s): M25.562 - Pain in left knee Category: Medical Plan: The patient experienced a fall of unknown etiology and subsequently developed left knee pain, lower leg pain, and a limp. She declined any labs or further imaging to investigate the cause of the fall. An X-ray of the left knee and tib ia/fibula was ordered to evaluate her leg pain. She will be contacted with the results once the imaging is completed. (3) Left leg pain: Code(s): M79.605 - Pain in left leg Category: Medical Plan: The patient experienced a fall of unknown etiology and subsequently developed left knee pain, lower leg pain, and a limp. She declined any labs or further imaging to investigate the cause of the fall. An X-ray of the left knee and tibia/fibula was ordered to evaluate her leg pain. She will be contacted with the results once the imaging is completed. (4) Fall: Code(s): W19.XXXA - Unspecified fall, initial encounter Category: Medical Plan: The patient experienced a fall of unknown etiology and subsequently developed left knee pain, lower leg pain, and a limp. She declined any labs or further imaging to investigate the cause of the fall. An X-ray of the left knee and tibia/fibula was ordered to evaluate her leg pain. She will be contacted with the results once the imaging is completed. Plan Plan Patient was informed and verbally consented to the use of an ambient scribe for clinic note documentation during this visit. 1. Neck Lump And Pain Recent imaging, including a CT scan and an ultrasound, did not show acute abnormalities but could not rule out sialadenitis. Two courses of Augmentin were completed with no symptomatic improvement. No additional antibiotics are indicated at this time. Ibuprofen 600-800 mg every 6 to 8 hours with food was recommended for swelling. The patient has an appointment scheduled with an ENT specialist on the of this month for further evaluation. 2. Fall And Left Leg Pain The patient experienced a fall of unknown etiology and subsequently developed left knee pain, lower leg pain, and a limp. She declined any labs or further imaging to investigate the cause of the fall. An X-ray of the left knee and tibia/fibula was ordered to evaluate her leg pain. She will be contacted with the results once the imaging is completed. I reviewed the results from the recent CT scan and ultrasound of the neck with the patient, explaining that while there were no acute findings, sialadenitis could not be fully excluded. I informed her that since two courses of Augmentin provided no relief, no further antibiotics are indicated. I recommended she take ibuprofen for the swelling until she sees the ENT specialist on the of this month. We discussed her recent fall and the subsequent left knee and lower leg pain. I ordered an X-ray of her left knee and tibia/fibula and will call her with the results. The patient declined any additional labs or imaging to investigate the cause of the fall at this time, stating she feels fine and will follow up if it happens again. She confirmed she does not need any prescription refills. Orders: Orders XR knee LT 4V Today M25.562 - Pain in left knee, M79.605 - Pain in left leg, W19.XXXA - Unspecified fall, initial encounter XR tibia fibula LT 2V Today M25.562 - Pain in left knee, M79.605 - Pain in left leg, W19.XXXA - Unspecified fall, initial encounter Patient Instructions: - Take ibuprofen 600 to 800 mg every 6 to 8 hours with food for the swelling in your neck until you see the ENT specialist. - Proceed with getting the X-ray of your left knee and lower leg as ordered. - We will call you with the X-ray results after you have them done. - Ensure you attend your ENT appointment scheduled for the of this month. - Do not take any more antibiotics for your neck symptoms, as they did not help. - Please let us know if you experience another fall. - You do not require any medication refills at this time.
== END 2025-02-21 11:27 | disposition home or self-care (01) ==
LOC: HO.HMCSH 10:49
PROVIDERS: PCP Internal Medicine; Visit Provider Physician Assistant Medical
DX: K11.20 Sialoadenitis, unspecified (principal); M25.562 Pain in left knee; M79.605 Pain in left leg; W19.XXXA Unspecified fall, initial encounter

== ENCOUNTER → 2025-02-21 11:51 | Outpatient (BNV) | payer MEDICARE, SELFPAY | PROVIDERS: PCP Internal Medicine; Visit Provider Radiology Diagnostic Radiology | DX: Z04.3 Encounter for examination and observation following other accident (principal); M25.562 Pain in left knee; M77.32 Calcaneal spur, left foot | CPT/HCPCS: 73564; 73590 ==

== ENCOUNTER 2025-03-23 10:24 | Outpatient (AMB) | payer MEDICARE, SELFPAY ==
[2025-03-23 10:26] VITALS: BP 123/59; PULSE 72; RESP 14; TEMP 36.3; O2SAT 97; BMI 21.1
--- NOTE | 2025-03-23 10:26 | A.OFFPC_ITS ---
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 Accompanied by: Self / Same As Patient Allergies codeine Adverse Reaction (Intermediate, Verified 03/23/25 10:50) nausea Medication List - Last Reconciled 03/23/25 by Macarena Licea PA-C albuterol sulfate 90 mcg/actuation 1 inh inhalation QID PRN alendronate 70 mg PO QWEEK calcium carbonate 1,200 mg PO DAILY cholecalciferol (vitamin D3) 50 mcg PO DAILY cyclosporine 0.05% (Restasis MultiDose) 1 drp ophthalmic (eye) Q12H multivitamin 1 tab PO DAILY omega-3 fatty acids 1,000 mg PO DAILY rosuvastatin (Crestor) 10 mg PO BEDTIME Tobacco use date assessed: 08/29/24 Dental Screening Dental Screen Date: 08/29/24 HPI HPI Comments History of Present Illness Details History of Present Illness The patient is an 79 year old female presenting for a follow-up of left mandibular gland swelling. She has a history of left mandibular gland swelling for about a year, which resolved spontaneously. A second, similar episode occurred several months ago. The most recent episode occurred on 01/27/2025, with swelling after eating, and improved with ibuprofen and the use of sour candies. A CT scan of the neck with contrast on 01/27/2025 showed hyperemia of the left submandibular gland with a prominent duct, but no tumors or salivary stones. An ENT consult noted a firm left mandibular gland without masses or stones and was able to express clear saliva, diagnosing acute recurrent sialadenitis. The swelling has since resolved. The patient has a history of smoking four cigarettes a day. A low-dose CT for lung cancer screening in 2022 revealed three right upper lobe nodules, categorized as Lung-RADS 2 (benign), with a recommendation for annual screening. She also has a history of osteoarthritis. Social History - Tobacco Use: The patient smokes four c igarettes per day. Results - Neck CT with contrast (01/27/2025): Sh owed hyperemia of the left submandibular gland with a prominent duct; no tumors or salivary stones were identified. - Low-dose lung CT (2022): Showed three right upper lobe nodules, categorized as Lung-RADS 2 (benign). [facility] Medical History (Updated 03/23/25 @ 10:53 by Macarena Licea PA-C) Medication management changed Healthcare maintenance Left leg pain Left knee pain Fall Duct ectasia Sialoadenitis of submandibular gland Mild hypercholesterolemia Hyperlipidemia Leukemia in remission Lump in neck Thyroid nodule Mass of left submandibular region Asthma Establishing care with new doctor, encounter for History of mammogram (~11/23/23) Current smoker Osteoporosis Cyclic citrullinated peptide (CCP) antibody positive Polymyalgia rheumatica Surgical History History of tonsillectomy and adenoidectomy Family History Father Prostate cancer Paternal Aunt Liver cancer Paternal Aunt Brain cancer Social History Household Members: Spouse Housing: House Alcohol intake: current Alcohol intake frequency: does not drink Patient Tobacco Use Status: Former Tobacco user Tobacco use type: Cigarette service: No Current occupational status: retired Cognitive needs: No Hearing needs: No Vision needs: Yes (rx glasses) Questionnaire PHQ-9 Over the last 2 weeks, how often have you been bothered by any of the following problems? 1. Little interest or pleasure in doing things: not at all 2. Feeling down, depressed, or hopeless: not at all 3. Trouble falling or staying asleep, or sleeping too much: not at all 4. Feeling tired or having little energy: not at all 5. Poor appetite or overeating: not at all 6. Feeling bad about yourself - or that you are a failure or have let yourself or your family down: not at all 7. Trouble concentrating on things, such as reading the newspaper or watching television: not at all 8. Moving or speaking so slowly that other people could have noticed. Or the opposite - being so fidgety or restless that you have been moving around a lot more than usual: not at all 9. Thoughts that you would be better off or of hurting yourself in some way: not at all Total score: 0 Depression Screening Interpretation: Negative Depression Screening Done: Yes 52043 - PHQ-9 Billing: Yes Source: Developed by Drs. Gerald Roper, Isa Fontanez, Saji Alejandre and colleagues, with an educational veronica from [employer]. Thrive Questionnaire Date Thrive assessed: 08/29/24 I am a: Patient What is your living situation today?: I have a steady place to live Within the past 12 months, did the food you bought not last and you didn't have the money to get more?: Never true Within the past 12 months, did you worry whether your food would run out before you got money to buy more?: Never true Do you have trouble paying for medicines?: No Do you have trouble getting transportation to medical appointments?: No Do you have trouble paying your heating and electricity bill?: No Do you have trouble taking care of your child, family member or friend?: No Do you have trouble with day-to-day activities such as bathing, preparing meals, shopping, managing finances, etc.?: No Are you currently unemployed and looking for a job?: No Are you interested in more education?: No Please select the resources that you would like help with: None THRIVE Score: 0 AUDIT C Alcohol Use Questionnaire (AUDIT-C) 1. How often do you have a drink containing alcohol?: Never 3. How often do you have six or more drinks on one occasion?: Never Total Score: 0 Score Reviewed/Action Taken: No ZAKIYA-7 AMB Questionnaire ZAKIYA-7 Date ZAKIYA - 7 assessed: 08/29/24 Feeling nervous, anxious, or on edge: 0 = Not at all Not being able to stop or control worryin = Not at all Worrying too much about different things: 0 = Not at all Trouble relaxin = Not at all Being so restless that it is hard to sit still: 0 = Not at all Becoming easily annoyed or irritable: 0 = Not at all Feeling afraid as if something awful might happen: 0 = Not at all Total ZAKIYA-7 score (0-4 normal; 5-9 mild; 10-14 moderate; 15-21 severe): 0 Source: Developed by Isa Bhatti Kurt Kroenke and colleagues, with an educational veronica from [employer]. ZAKIYA-7 Assessment Billing ZAKIYA-7 Assessment Tool: ZAKIYA-7 Assessment 80721 Review of Systems Narrative Review of Systems - Constitutional: Reports feeling much better. - HEENT: Denies dysphagia. Const All systems reviewed & are unremarkable except as noted in HPI and below Physical exam (Primary Care) Vital Signs: Last Vital Signs Temp 97.4 F 03/23/25 10:26 Pulse 72 03/23/25 10:26 Resp 14 03/23/25 10:26 BP 123/59 L 03/23/25 10:26 Pulse Ox 97 03/23/25 10:26 Oxygen Delivery Method Room Air 03/23/25 10:26 Care Plan Goal for BP management: <140/90 at Goal BMI result Body Mass Index 21.1 Normal BMI Tobacco/Smoking Status: Tobacco use Status Tobacco use date assessed 08/29/24 03/23/25 10:34 Patient Tobacco Use Status Former Tobacco user 03/23/25 10:34 Tobacco use type Cigarette 03/23/25 10:34 PHQ-9: PHQ-9 Score PHQ-9: Total score 0 03/23/25 10:34 Depression Screening Interpretation: Negative Thrive Assessment: Date of Thrive Assessment Date Thrive assessed 08/29/24 03/23/25 10:34 Narrative Physical Exam Appearance: Alert. Oriented X3. No acute distress. Head: Normal external exam. Normocephalic. Atraumatic. Eyes: Pupils are equal, round, and reactive to light. Extraocular movements intact. Conjunctiva and sclera normal. Eyelids normal. Throat: Pharynx normal. Uvula midline. Moist mucous membranes. No mucus lesions of oral cavity or oral pharynx. Neck: Normal inspection. Neck supple. Full range of motion. No adenopathy. Thyroid Normal. No meningeal signs. No neck mass noted. Left mandibular gland firm, but no masses or stones. Clear saliva expressed. Cardiovascular: Normal heart rate and rhythm. Respiratory: No respiratory distress. Painless inspiration. Back: Full range of motion noted. Skin: Skin warm and dry. Normal skin color. Normal skin turgor. No rashes/lesions/lacerations noted. Extremities: Extremities exhibit normal range of motion. Results Reviewed Results Reviewed: - Neck CT with contrast (01/27/2025): Showed hyperemia of the left submandibular gland with a prominent duct; no tumors or salivary stones were identified. - Low-dose lung CT (2022): Showed three right upper lobe nodules, categorized as Lung-RADS 2 (benign). Coding Level of Care Code Est Pt Level 4 (43606) Complex visit Add On G2211 Diagnoses Sialoadenitis of submandibular gland K11.20 Personal history of nicotine dependence Z87.891 Current smoker F17.200 Healthcare maintenance Z00.00 Medication management changed Z79.899 Additional Codes ZAKIYA-7 Assessment Billing - ZAKIYA-7 Assessment Tool: ZAKIYA-7 Assessment 50620 ([id number]) PHQ-9 - 47055 - PHQ-9 Billing: Yes ([id number]) Assessment & Plan Assessment & Plan (1) Sialoadenitis of submandibular gland: Code(s): K11.20 - Sialoadenitis, unspecified Category: Medical Plan: The patient's sialadenitis has resolved. She will continue close surveillance and conservative management as recommended by ENT, including warm compresses, gland massage, sour candies, and hydration. A repeat CT scan is advised if symptoms worsen. She has a scheduled follow-up with her ENT on July 05. She will follow up here in six months. (2) Personal history of nicotine dependence: Code(s): Z87.891 - Personal history of nicotine dependence Category: Medical Plan: The patient continues to smoke four cigarettes per day. Given her last screening was in 2022, a referral will be placed for her recommended annual low-dose chest CT for lung cancer screening. The patient can schedule the appointment at her convenience after the holidays. (3) Current smoker: Comment: (current smoker - onset 16yo, 1/2ppd x 56yrs - 28pyh, quit for 5yrs, now at 1-2 cig/day) Code(s): F17.200 - Nicotine dependence, unspecified, uncomplicated Category: Social Hx Plan: The patient continues to smoke four cigarettes per day. Given her last screening was in 2022, a referral will be placed for her recommended annual low-dose chest CT for lung cancer screening. The patient can schedule the appointment at her convenience after the holidays. (4) Healthcare maintenance: Code(s): Z00.00 - Encounter for general adult medical examination without abnormal findings Category: Medical Plan: A six-month follow-up is scheduled, which will serve as her annual wellness visit. A week prior to the visit, orders will be sent for labs including a CBC, CMP, magnesium, vitamin B12, folate, vitamin D, thyroid panel, diabetes screen, and a urinalysis. (5) Medication management changed: Code(s): Z79.899 - Other predatory animal exterminator (current) drug therapy Category: Medical Plan: The patient was advised to continue taking her [place]-3 supplement. A 90-day supply with three refills will be sent to her pharmacy, [facility] in [place]. She has an active prescription for alendronate for osteoarthritis and does not need other refills at this time. Plan Plan Patient was informed and verbally consented to the use of an ambient scribe for clinic note documentation during this visit. 1. Recurrent Left Submandibular Sialadenitis The patient's sialadenitis has resolved. She will continue close surveillance and conservative management as recommended by ENT, including warm compresses, gland massage, sour candies, and hydration. A repeat CT scan is advised if symptoms worsen. She has a scheduled follow-up with her ENT on July 05. She will follow up here in six months. 2. Tobacco Use And Lung Cancer Screening The patient continues to smoke four cigarettes per day. Given her last screening was in 2022, a referral will be placed for her recommended annual low-dose chest CT for lung cancer screening. The patient can schedule the appointment at her convenience after the holidays. 3. Health Maintenance A six-month follow-up is scheduled, which will serve as her annual wellness visit. A week prior to the visit, orders will be sent for labs including a CBC, CMP, magnesium, vitamin B12, folate, vitamin D, thyroid panel, diabetes screen, and a urinalysis. 4. Medication Management The patient was advised to continue taking her [place]-3 supplement. A 90-day supply with three refills will be sent to her pharmacy, [facility] in [place]. She has an active prescription for alendronate for osteoarthritis and does not need other refills at this time. Discussion Notes I discussed the patient's resolving left submandibular gland swelling with her. We reviewed the ENT specialist's note, which confirmed a diagnosis of acute recurrent sialadenitis and ruled out tumors or stones based on a recent CT scan. I reinforced the ENT's recommended plan for close surveillance and conservative management, including warm compresses, gland massage, sour candies, and hydration, and advised her to follow up with ENT as scheduled. We also discussed the importance of annual lung cancer screening due to her smoking history. I informed her that I would place a referral for a low-dose CT and she could schedule it at her convenience after the holidays. We agreed on a six-month follow-up visit, which will serve as her annual exam, and I will order a comprehensive set of labs beforehand. Medication refills will be sent to her pharmacy. Orders: Referrals Lung Cancer Screening Referral F17.200 - Nicotine dependence, unspecified, uncomplicated, Z87.891 - Personal history of nicotine dependence Medications: Refilled albuterol sulfate 90 mcg/actuation 1 inh inhalation QID PRN 8.5 grams 3RF shortness of breath or wheezing Patient Instructions: Patient Instructions - Continue with warm compresses, massaging the gland on your left jaw, and using sour candies to help with the salivary gland swelling. - Ensure you are drinking plenty of fluids. - Follow up with your ENT specialist as scheduled on July 05. - Call us if the swelling or pain in your jaw gets worse. - Our office will send a referral for your annual lung cancer screening CT scan. Please call to schedule this for after the holidays, such as in April or May. - I am sending a 90-day prescription with three refills to your pharmacy. Please call the pharmacy first when you need a refill. - Return to the clinic in six months for your annual check-up appointment. - Please call our office one week before your next appointment so we can order your blood work. - Continue taking your [place]-3 supplement.
== END 2025-03-23 10:48 | disposition home or self-care (01) ==
LOC: HO.HMCSH 10:24
PROVIDERS: PCP Internal Medicine; Visit Provider Physician Assistant Medical
DX: K11.20 Sialoadenitis, unspecified (principal); F17.200 Nicotine dependence, unspecified, uncomplicated; Z00.00 Encounter for general adult medical examination without abnormal findings; Z79.899 Other long term (current) drug therapy

== ENCOUNTER → 2025-03-23 10:24 | Outpatient (BNVA) | payer MEDICARE, SELFPAY | PROVIDERS: PCP Internal Medicine; Visit Provider Physician Assistant Medical | DX: K11.20 Sialoadenitis, unspecified (principal); F17.200 Nicotine dependence, unspecified, uncomplicated; Z79.899 Other long term (current) drug therapy; Z13.31 Encounter for screening for depression | CPT/HCPCS: 96127; 99212 ==